=== PATIENT | female | born 1955 | race Native Hawaiian/Other Pacific Islander ===

== ENCOUNTER 2018-03-23 18:28 | Inpatient (IN) | payer MEDICAID, MEDICARE, OTHER ==
--- NOTE | 2018-03-23 18:52 | ED PDOC ---
Arrival/HPI <Darnell Arenas - Last Filed: 03/23/18 19:20> - General Historian: Patient EM Caveat: Altered Mental Status - History of Present Illness Narrative History of Present Illness (Text): 03/23/18 18:48 63F pmhx of [place] (s/p LCX sten 2011) DM, CAD, HTN, HLD presents to ED for altered mental status, pt complains of a headache, shortness of breath and chest tightness. Pt's cheif complaint is that her three years ago. Pt st ates her daughter and son work here at [employer]. Pt does not know where she lives however is able to accurately recall where she was born and her age.. Pt denies any fevers, chills, vomiting, blood in stool, blood in urine, recent illness, 03/23/18 18:57 <Robe Desai - Last Filed: 03/23/18 20:24> - General Chief Complaint: Headache Time Seen by Provider: 03/23/18 18:48 Past Medical History - Provider Review Nursing Documentation Reviewed: Yes - Cardiac Hx Pacemaker: No - Neurological Hx Paralysis: No - Hematological/Oncological Hx Blood Transfusions: No Hx Blood Transfusion Reaction: No - Musculoskeletal/Rheumatological Hx Musculoskeletal Disorders: Yes - Psychiatric Hx Emotional Abuse: No Hx Physical Abuse: No Hx Substance Use: No - Anesthesia Hx Anesthesia Reactions: No Hx Malignant Hyperthermia: No - Suicidal Assessment Feels Threatened In Home Enviroment: No <Robe Desai - Last Filed: 03/23/18 20:24> Family/Social History Family/Social History: Unknown Family HX Hx Alcohol Use: Yes Hx Substance Use: No <Robe Desai - Last Filed: 03/23/18 20:24> Allergies/Home Meds <Darnell Arenas - Last Filed: 03/23/18 19:20> <Robe Desai - Last Filed: 03/23/18 20:24> Allergies/Adverse Reactions: Allergies No Known Allergies Allergy (Verified 01/06/12 12:05) Home Medications: Home Meds Medication Instructions Recorded Confirmed Aspirin 81 mg PO DAILY 01/06/12 01/06/12 Atorvastatin Calcium 40 mg PO DAILY 01/06/12 01/06/12 Clopidogrel [Plavix] 75 mg PO DAILY 01/06/12 01/06/12 Enalapril Maleate [Enalapril] 10 mg PO QAM 01/06/12 01/06/12 Famotidine 20 mg PO DAILY 01/06/12 01/06/12 Fluticasone/Salmeterol [Advair 1 - 2 puff IH DAILY 01/06/12 01/06/12 Diskus 250/50] Gabapentin 300 mg PO DAILY 01/06/12 01/06/12 Glyburide/Metformin HCl 1 tab PO BID 01/06/12 01/06/12 [Glyburide/Metformin 5 mg-500 mg] Hydrochlorothiazide 25 mg PO DAILY 01/06/12 01/06/12 Metoprolol Tartrate 50 mg PO QAM 01/06/12 01/06/12 Montelukast [Singulair] 10 mg PO DAILY 01/06/12 01/06/12 Naproxen 500 mg PO DAILY PRN 01/06/12 01/06/12 Sydjy-[id number] Ethyl Esters [Lovaza] 1 gm PO DAILY 01/06/12 01/06/12 Omeprazole 40 mg PO DAILY 01/06/12 01/06/12 Zolpidem Tartrate 25 mg PO HS 01/06/12 01/06/12 Review of Systems - Physician Review All systems were reviewed & negative as marked: Yes - Review of Systems Systems not reviewed;Unavailable: Altered Mental Status Respiratory: SOB Cardiovascular: Chest Pain Neurological: Headache <Robe Desai - Last Filed: 03/23/18 20:24> Physical Exam Temperature: Afebrile Blood Pressure: Hypertensive Pulse: Regular Respiratory Rate: Normal Appearance: Positive for: Non-Toxic Pain Distress: None Mental Status: Positive for: Confused - Systems Exam Head: Present: Atraumatic, Normocephalic Pupils: Present: PERRL Extroacular Muscles: Present: EOMI. No: Gaze Palsy Conjunctiva: Present: Normal Mouth: Present: Dry Nose (External): Present: Atraumatic Respiratory/Chest: Present: Clear to Auscultation. No: Wheezes, Rales Cardiovascular: Present: Normal S1, S2. No: Murmurs Abdomen: No: Tenderness, Distention Upper Extremity: Present: NORMAL PULSES Lower Extremity: Present: NORMAL PULSES Neurological: Present: CN II-XII Intact Skin: Present: Dry Psychiatric: Present: Other (impaired cognition) <Robe Desai - Last Filed: 03/23/18 20:24> Medical Decision Making - RAD Interpretation Radiology Orders: 03/23/18 19:00 HEAD W/O CONTRAST [CT] Stat CHEST PORTABLE [RAD] Stat - Medication Orders Current Medication Orders: Sodium Chloride (Sodium Chloride 0.9%) 1,000 mls @ 999 mls/hr IV .Q1H1M STA Stop: 03/23/18 20:02 Discontinued Medications Acetaminophen (Tylenol 325mg Tab) 650 mg PO STAT STA Stop: 03/23/18 19:03 <Darnell Arenas - Last Filed: 03/23/18 19:20> ED Course and Treatment: 03/23/18 19:34 #Altered Mental Status -CBC, CMP, BC, UA, UC, CXR, Head CT w/o cont -Tylenol 650 PO -1L NS bolus - Lab Interpretations Interpretation: Abnormal lab values (lactate 6.0, glucose >500) <Robe Desai - Last Filed: 03/23/18 20:24> Disposition/Present on Arrival <Darnell Arenas - Last Filed: 03/23/18 19:20> - Present on Arrival Any Indicators Present on Arrival: No - Disposition Have Diagnosis and Disposition been Completed?: Yes Disposition Time: 20:11 Patient Plan: Admission (admit to hospitalist service) <Robe Desai - Last Filed: 03/23/18 20:24> - Disposition Diagnosis: Hyperosmolar non-ketotic state in patient with type 2 diabetes mellitus Disposition: HOSPITALIZED Patient Problems: Current Active Problems Problem Status Onset Hyperosmolar non-ketotic state in patient with type 2 diabetes mellitus Acute Condition: CRITICAL Referrals: Isaias Jo MD [Primary Care Provider] - Follow up with primary Forms: [employer] (Icelandic)
[2018-03-23] MEDS ORDERED: Sodium Chloride 0.9% 1,000 ML IV STA ×3 (19:02→20:01)
[2018-03-23 19:36] LABS: BASO # 0.03 K/mm3 (0.0-2.0); BASO % 0.3 % (0.0-3.0); EOS # 0.3 (0.0-0.7); EOS % 2.9 % (1.5-5.0); GRAN # 4.61 (1.4-6.5); GRAN % 47.7 % (50.0-68.0); HEMOGLOBIN 11.8 g/dL (12.0-16.0); LYMPH # 4.4 (1.2-3.4); LYMPH % 44.9 % (22.0-35.0); MEAN CELL VOLUME 90.8 fl (80.0-105.0); MEAN CORPUSCULAR HEMOGLOBIN 30.9 pg (25.0-35.0); MEAN PLATELET VOLUME 9.8 fl (7.0-11.0); MONO # 0.4 (0.1-0.6); MONO % 4.2 % (1.0-6.0); RBC 3.82 10^6/uL (3.5-6.1); RED CELL DISTRIBUTION WIDTH 12.5 % (11.5-14.5); WHITE BLOOD COUNT 9.7 10^3/uL (4.5-11.0)
[2018-03-23 19:36] LABS: URINE BILIRUBIN NEGATIVE (NEGATIVE); URINE BLOOD NEGATIVE (NEGATIVE); URINE GLUCOSE (UA) >=1000 mg/dL (NEGATIVE); URINE LEUKOCYTE ESTERASE SMALL Leu/uL (NEGATIVE); URINE PROTEIN NEGATIVE mg/dL (<30 mg/dL); URINE UROBILINOGEN 0.2 E.U./dL (<1 E.U./dL)
[2018-03-23 19:40] LABS: VENOUS BLOOD GAS BASE EXCESS -4.7 mmol/L (0.0-2.0); VENOUS BLOOD GAS PO2 95 mm/Hg (30-55); VENOUS BLOOD PH 7.35 (7.32-7.43)
[2018-03-23 19:43] LABS: URINE APPEARANCE CLEAR (CLEAR); URINE COLOR YELLOW (YELLOW)
[2018-03-23 19:51] LABS: ALB/GLOB RATIO 1.3 (1.1-1.8); ALBUMIN 4.5 g/dL (3.0-4.8); ALT/SGPT 25 U/L (7-56); AST/SGOT 29 U/L (14-36); BLOOD UREA NITROGEN 26 mg/dL (7-21); CALCIUM 9.6 mg/dL (8.4-10.5); GFR NON-AFRICAN AMERICAN 50
[2018-03-23] MEDS ORDERED: Insulin Regular 1 UNITS/0.01 ML ML SC STA (19:55)
[2018-03-23 19:58] LABS: URINE BACTERIA FEW /hpf
[2018-03-23 20:00] LABS: B-TYPE NATRIURETIC PEPTIDE 432 pg/mL (0-450); TROPONIN I 0.01 ng/mL
[2018-03-23] MEDS ORDERED: Magnesium Sulfate 2 gm/50 ml 2 GM/50 ML BAG IVPB ONE (20:41)
[2018-03-23] MEDS ORDERED: Dextrose 50% SYRINGE Inj (50 ml) IV PRN (21:12)
[2018-03-23] MEDS ORDERED: Insulin Reg-MEDIUM-Coverage SC SCH (21:15)
[2018-03-23] MEDS: Sodium Chloride 0.9% 1,000 ML IV SCH (21:57)
--- NOTE | 2018-03-23 23:27 | CP.PCM.HP ---
<Man Joant - Last Filed: 03/24/18 01:39> History of Present Illness - History of Present Illness History of Present Illness: Demario Jo DO PGY1 - Internal Medicine [employer] Heavy [employer]ic - Medicine H&P CC: Confusion 63F w/ [place] (s/p LCX sten 2011) DM, CAD, HTN, HLD who was brought in by EMS on 03/22 w/ c/o of SOB; per ED documentation, patient was brought in by EMS after she was found wandering the streets; Upon arrival to ED she was found to have a blood glucose of >500. During interview it was noted that patient was somewhat confused and AAO1 on exam. She personally was complaining of SOB, and kept mentioning it waas hard for her to breath ever since her passed. She denied any cough, fevers, chills, chest pain, palpitations, new onset lower extremity edema. She reported that she has been compliant w/ her diabetic medications, and her diet however upon evaluation of patient's personal artifacts it was noted patient was carrying a box of sweets/pastries. During interview, patient reports that her son brought her for SOB. Patient reported polyuria, and headache as well. Upon ROS: she denies any abd pain, n/v/d/c, numbness/tingling, blurry vision, PMD: Patient reports Dr. Jo at [facility] (Isaias Jo); Chart review lists Dr. Abby Adan Pharmacy: Patient does not know Home Rx: Unknown Social: Denies EtOH, smoking, illicit PMH: [place] (s/p LCX sten 2011) DM, CAD, HTN, HLD (as per chart review) Allergies: NKDA / Denies PSH: Denies Present on Admission - Present on Admission Any Indicators Present on Admission: No Review of Systems - Review of Systems All systems: reviewed and no additional remarkable complaints except Review of Systems: as per HPI Past Patient History - Infectious Disease Hx of Infectious Diseases: None - Past Social History Smoking Status: Unknown If Ever Smoked - CARDIAC Hx Pacemaker: No - NEUROLOGICAL Hx Paralysis: No - HEMATOLOGICAL/ONCOLOGICAL Hx Blood Transfusions: No Hx Blood Transfusion Reaction: No - MUSCULOSKELETAL/RHEUMATOLOGICAL Hx Musculoskeletal Disorders: Yes - PSYCHIATRIC Hx Emotional Abuse: No Hx Physical Abuse: No Hx Substance Use: No - SURGICAL HISTORY Hx Surgeries: Yes - ANESTHESIA Hx Anesthesia Reactions: No Hx Malignant Hyperthermia: No Meds Allergies/Adverse Reactions: Allergies Allergy/AdvReac Type Severity Reaction Status Date / Time No Known Allergies Allergy Verified 01/06/12 12:05 Physical Exam - Constitutional Appears: Well, No Acute Distress, Confused - Head Exam Head Exam: ATRAUMATIC, NORMOCEPHALIC - Eye Exam Eye Exam: EOMI, Normal appearance, PERRL - ENT Exam ENT Exam: Mucous Membranes Moist - Respiratory Exam Respiratory Exam: NORMAL BREATHING PATTERN Additional comments: Crackles in Left Middle/Lower lung oliver - Cardiovascular Exam Cardiovascular Exam: RRR, +S1, +S2. absent: Systolic Murmur - GI/Abdominal Exam GI & Abdominal Exam: Normal Bowel Sounds, Soft, Tenderness - Extremities Exam Extremities exam: Positive for: pedal pulses present. Negative for: pedal edema - Back Exam Back exam: CVA tenderness (L), CVA tenderness (R) - Neurological Exam Neurological exam: Alert Additional comments: AAO1 - Skin Skin Exam: Dry, Intact, Normal Color, Warm Results - Vital Signs Recent Vital Signs: Last Vital Signs Temp 98.7 F 03/23/18 19:52 Pulse 80 03/23/18 21:42 Resp 18 03/23/18 21:42 BP 159/83 H 03/23/18 21:42 Pulse Ox 100 03/23/18 21:42 - Labs Result Diagrams: 03/23/18 19:15 03/24/18 00:05 Labs: Laboratory Results - last 24 hr 03/23/18 03/23/18 03/23/18 18:15 18:15 18:15 WBC 9.7 RBC 3.82 Hgb 11.8 L Hct 34.7 L MCV 90.8 MCH 30.9 MCHC 34.0 RDW 12.5 Plt Count 269 MPV 9.8 Gran % 47.7 L Lymph % (Auto) 44.9 H Labette % (Auto) 4.2 Eos % (Auto) 2.9 Baso % (Auto) 0.3 Gran # 4.61 Lymph # (Auto) 4.4 H Labette # (Auto) 0.4 Eos # (Auto) 0.3 Baso # (Auto) 0.03 pO2 95 H VBG pH 7.35 VBG pCO2 37.0 L VBG HCO3 20.4 L VBG Total CO2 21.5 L VBG O2 Sat (Calc) 98.9 H VBG Base Excess -4.7 L VBG Potassium 3.6 Sodium 135.0 134 Chloride 95.0 L 97 L Glucose 581 H* Lactate 6.0 H* FiO2 21.0 Potassium 3.7 Carbon Dioxide 19 L Anion Gap 22 H BUN 26 H Creatinine 1.1 Est GFR ( Amer) > 60 Est GFR (Non-Af Amer) 50 Random Glucose 549 H* Calcium 9.6 Phosphorus 3.3 Magnesium 1.6 L Total Bilirubin 0.5 AST 29 ALT 25 Alkaline Phosphatase 129 H Troponin I 0.01 NT-Pro-B Natriuret Pep 432 Total Protein 8.0 Albumin 4.5 Globulin 3.5 Albumin/Globulin Ratio 1.3 Venous Blood Potassium 3.6 Urine Color Urine Appearance Urine pH Ur Specific Jewell Urine Protein Urine Glucose (UA) Urine Ketones Urine Blood Urine Nitrate Urine Bilirubin Urine Urobilinogen Ur Leukocyte Esterase Urine RBC Urine WBC Ur Epithelial Cells Urine Bacteria 03/23/18 18:15 WBC RBC Hgb Hct MCV MCH MCHC RDW Plt Count MPV Gran % Lymph % (Auto) Labette % (Auto) Eos % (Auto) Baso % (Auto) Gran # Lymph # (Auto) Labette # (Auto) Eos # (Auto) Baso # (Auto) pO2 VBG pH VBG pCO2 VBG HCO3 VBG Total CO2 VBG O2 Sat (Calc) VBG Base Excess VBG Potassium Sodium Chloride Glucose Lactate FiO2 Potassium Carbon Dioxide Anion Gap BUN Creatinine Est GFR ( Amer) Est GFR (Non-Af Amer) Random Glucose Calcium Phosphorus Magnesium Total Bilirubin AST ALT Alkaline Phosphatase Troponin I NT-Pro-B Natriuret Pep Total Protein Albumin Globulin Albumin/Globulin Ratio Venous Blood Potassium Urine Color Yellow Urine Appearance Clear Urine pH 6.0 Ur Specific Jewell 1.020 Urine Protein Negative Urine Glucose (UA) >=1000 Urine Ketones Negative Urine Blood Negative Urine Nitrate Negative Urine Bilirubin Negative Urine Urobilinogen 0.2 Ur Leukocyte Esterase Small H Urine RBC 1 - 3 H Urine WBC 10 - 15 H Ur Epithelial Cells 1 - 3 Urine Bacteria Few Assessment & Plan - Assessment and Plan (Free Text) Assessment: 63F w/ [place] (s/p LCX angioplasty w/ balloon 2011) DM, CAD, HTN, HLD who was brought in by EMS on 03/22 w/ c/o of SOB; per ED documentation, patient was brought in by EMS after she was found wandering the streets; Upon arrival to ED she was found to have a blood glucose of >500. Admitted for management of HHS. Patient found to have the following Assessments upon admission: AMS + COELHO Hx CAD Hx HTN Hx HLD HHS w/ Hx DM Anemia Plan Neuro: AAO1 on exam No s/s of FND 03/23 - CT Head - Generalized atrophy, Chronic microvascular disease Avoid sedatives in this patent; AMS + COELHO - Most likely due to HHS vs Dehydration IVF Reorient as needed Pulm: Mild crackles in left middle/lower lung oliver CXR negative for signs of infiltrate; afebrile no white count; no complaints of cough Maintain O2 Sat >95% Aspiration precautions Budesonide Q12 Duonebs Q6H ANUP Cardio: Hx CAD s/p Cath w/ LCX angioplasty 2011; Hx HTN Maintain Map >65 Echocardiogram pending EKG - no significant signs of ischemia First trop negative; Serial troponins pending Start metoprolol tartrate 25 BID - Pt. HTN in 160s C/w previously Rx ASA/Plavix Endocrinology HHS w/ Hx DM: Blood glucose 549 on admission; Anion gap 18, no ketone in urine, UA glucose>1000; pH 7.35, Mildly decreased bicarb Patient may have been exhibiting a pre-DKA state? Causes of HHS most likely 2/2 non compliance Sugar responsive to 10u bolus and ISS C/w ISS Low Q4 + Accucheck Q4 Will recheck BMP to reassess AG C/w IVF @ 125ml/hr Heme/Onc Normocytic Anemia Asymptomatic; no pallor appreciated; good cap refill; no chest pain or palpitations; Satting well Follow up Iron studies, B12, Folate Nephro: BUN/Cr - 26/1.1 Hypomag on admission; Repleted + Recheck in AM Maintain electrolyte balance Maintain euvolemia IVF as above Mag 2gm IVPB ID: Afebrile, No white count, BCX/ UCX pending No infiltrate appreciated on CXR UA w/ some pyuria + bacturia however patient is asymptomatic; No need for empi sincere ABX at this time PPX: Protonix Lovenox Patient was seen, examined, and discussed w/ attending physician Dr. 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 SPECIALIST <Mena Corley - Last Filed: 03/24/18 06:41> Results - Vital Signs Recent Vital Signs: Last Vital Signs Temp 98.3 F 03/23/18 23:42 Pulse 64 03/24/18 02:00 Resp 17 03/23/18 23:42 BP 153/76 H 03/24/18 01:45 Pulse Ox 97 03/23/18 23:15 - Labs Result Diagrams: 03/23/18 19:15 03/24/18 00:05 Labs: Laboratory Results - last 24 hr 03/23/18 03/23/18 03/23/18 18:15 19:15 19:15 WBC RBC Hgb Hct MCV MCH MCHC RDW Plt Count MPV Gran % Lymph % (Auto) Labette % (Auto) Eos % (Auto) Baso % (Auto) Gran # Lymph # (Auto) Labette # (Auto) Eos # (Auto) Baso # (Auto) pO2 95 H VBG pH 7.35 VBG pCO2 37.0 L VBG HCO3 20.4 L VBG Total CO2 21.5 L VBG O2 Sat (Calc) 98.9 H VBG Base Excess -4.7 L VBG Potassium 3.6 Sodium 135.0 134 Chloride 95.0 L 97 L Glucose 581 H* Lactate 6.0 H* FiO2 21.0 Potassium 3.7 Carbon Dioxide 19 L Anion Gap 22 H BUN 26 H Creatinine 1.1 Est GFR ( Amer) > 60 Est GFR (Non-Af Amer) 50 POC Glucose (mg/dL) Random Glucose 549 H* Calcium 9.6 Phosphorus 3.3 Magnesium 1.6 L Iron TIBC % Saturation Total Bilirubin 0.5 AST 29 ALT 25 Alkaline Phosphatase 129 H Troponin I 0.01 NT-Pro-B Natriuret Pep 432 Total Protein 8.0 Albumin 4.5 Globulin 3.5 Albumin/Globulin Ratio 1.3 Venous Blood Potassium 3.6 Urine Color Yellow Urine Appearance Clear Urine pH 6.0 Ur Specific Jewell 1.020 Urine Protein Negative Urine Glucose (UA) >=1000 Urine Ketones Negative Urine Blood Negative Urine Nitrate Negative Urine Bilirubin Negative Urine Urobilinogen 0.2 Ur Leukocyte Esterase Small H Urine RBC 1 - 3 H Urine WBC 10 - 15 H Ur Epithelial Cells 1 - 3 Urine Bacteria Few 03/23/18 03/23/18 03/23/18 19:15 21:04 21:55 WBC 9.7 RBC 3.82 Hgb 11.8 L Hct 34.7 L MCV 90.8 MCH 30.9 MCHC 34.0 RDW 12.5 Plt Count 269 MPV 9.8 Gran % 47.7 L Lymph % (Auto) 44.9 H Labette % (Auto) 4.2 Eos % (Auto) 2.9 Baso % (Auto) 0.3 Gran # 4.61 Lymph # (Auto) 4.4 H Labette # (Auto) 0.4 Eos # (Auto) 0.3 Baso # (Auto) 0.03 pO2 VBG pH VBG pCO2 VBG HCO3 VBG Total CO2 VBG O2 Sat (Calc) VBG Base Excess VBG Potassium Sodium Chloride Glucose Lactate FiO2 Potassium Carbon Dioxide Anion Gap BUN Creatinine Est GFR ( Amer) Est GFR (Non-Af Amer) POC Glucose (mg/dL) 391 H 264 H Random Glucose Calcium Phosphorus Magnesium Iron TIBC % Saturation Total Bilirubin AST ALT Alkaline Phosphatase Troponin I NT-Pro-B Natriuret Pep Total Protein Albumin Globulin Albumin/Globulin Ratio Venous Blood Potassium Urine Color Urine Appearance Urine pH Ur Specific Jewell Urine Protein Urine Glucose (UA) Urine Ketones Urine Blood Urine Nitrate Urine Bilirubin Urine Urobilinogen Ur Leukocyte Esterase Urine RBC Urine WBC Ur Epithelial Cells Urine Bacteria 03/24/18 03/24/18 03/24/18 00:05 00:05 00:05 WBC RBC Hgb Hct MCV MCH MCHC RDW Plt Count MPV Gran % Lymph % (Auto) Labette % (Auto) Eos % (Auto) Baso % (Auto) Gran # Lymph # (Auto) Labette # (Auto) Eos # (Auto) Baso # (Auto) pO2 50 VBG pH 7.38 VBG pCO2 44.0 VBG HCO3 26.0 VBG Total CO2 27.4 VBG O2 Sat (Calc) 87.2 H VBG Base Excess 0.5 VBG Potassium 3.1 L Sodium 141.0 140 Chloride 107.0 106 Glucose 161 H Lactate 1.4 FiO2 21.0 Potassium 3.1 L Carbon Dioxide 26 Anion Gap 10 BUN 20 Creatinine 0.9 Est GFR ( Amer) > 60 Est GFR (Non-Af Amer) > 60 POC Glucose (mg/dL) Random Glucose 156 H Calcium 8.6 Phosphorus Magnesium Iron 43 L TIBC 308 % Saturation 14 L Total Bilirubin AST ALT Alkaline Phosphatase Troponin I 0.02 D NT-Pro-B Natriuret Pep Total Protein Albumin Globulin Albumin/Globulin Ratio Venous Blood Potassium 3.1 L Urine Color Urine Appearance Urine pH Ur Specific Jewell Urine Protein Urine Glucose (UA) Urine Ketones Urine Blood Urine Nitrate Urine Bilirubin Urine Urobilinogen Ur Leukocyte Esterase Urine RBC Urine WBC Ur Epithelial Cells Urine Bacteria 03/24/18 04:35 WBC RBC Hgb Hct MCV MCH MCHC RDW Plt Count MPV Gran % Lymph % (Auto) Labette % (Auto) Eos % (Auto) Baso % (Auto) Gran # Lymph # (Auto) Labette # (Auto) Eos # (Auto) Baso # (Auto) pO2 VBG pH VBG pCO2 VBG HCO3 VBG Total CO2 VBG O2 Sat (Calc) VBG Base Excess VBG Potassium Sodium Chloride Glucose Lactate FiO2 Potassium Carbon Dioxide Anion Gap BUN Creatinine Est GFR ( Amer) Est GFR (Non-Af Amer) POC Glucose (mg/dL) 159 H Random Glucose Calcium Phosphorus Magnesium Iron TIBC % Saturation Total Bilirubin AST ALT Alkaline Phosphatase Troponin I NT-Pro-B Natriuret Pep Total Protein Albumin Globulin Albumin/Globulin Ratio Venous Blood Potassium Urine Color Urine Appearance Urine pH Ur Specific Jewell Urine Protein Urine Glucose (UA) Urine Ketones Urine Blood Urine Nitrate Urine Bilirubin Urine Urobilinogen Ur Leukocyte Esterase Urine RBC Urine WBC Ur Epithelial Cells Urine Bacteria Attending/Attestation - Attestation I have personally seen and examined this patient.: Yes I have fully participated in the care of the patient.: Yes I have reviewed all pertinent clinical information: Yes
[2018-03-24 00:32] LABS: VENOUS BLOOD GAS BASE EXCESS 0.5 mmol/L (0.0-2.0); VENOUS BLOOD GAS PO2 50 mm/Hg (30-55); VENOUS BLOOD PH 7.38 (7.32-7.43)
[2018-03-24 00:40] LABS: IRON 43 ug/dL (45-180)
[2018-03-24 00:49] LABS: % IRON SATURATION 14 % (20-55); TOTAL IRON BINDING CAPACITY 308 ug/dL (265-497)
[2018-03-24 00:52] LABS: TROPONIN I 0.02 ng/mL
[2018-03-24 00:55] LABS: BLOOD UREA NITROGEN 20 mg/dL (7-21); CALCIUM 8.6 mg/dL (8.4-10.5); GFR NON-AFRICAN AMERICAN > 60
[2018-03-24 01:00] VITALS: BMI 21.7
[2018-03-24] MEDS: Insulin Reg-MEDIUM-Coverage SC SCH ×6 (01:44→20:59)
--- NOTE | 2018-03-24 01:46 | US ---
Date of service: 03/23/2018 HISTORY: Diffuse abdominal tenderness COMPARISON: None. TECHNIQUE: Grayscale imaging was performed. FINDINGS: LIVER: Measures 17.0 cm. Normal echogenicity of the liver parenchyma. No mass. No intrahepatic bile duct dilatation. GALLBLADDER: There are no gallstones, wall thickening or pericholecystic fluid. The sonographic Garnica's sign is negative. COMMON BILE DUCT: Measures 2.9 mm. No stones. No dilatation. PANCREAS: Unremarkable as visualized. No mass. No ductal dilatation. RIGHT KIDNEY: Measures 9.7cm. Normal echogenicity with mild cortical atrophy. No calculus, mass, or hydronephrosis. LEFT KIDNEY: Measures 9.2cm. Normal echogenicity with mild cortical atrophy. No calculus, mass, or hydronephrosis. SPLEEN: Normal in size and contour. No mass. AORTA: No aneurysmal dilatation. IVC: Unremarkable. OTHER FINDINGS: None. IMPRESSION: No cholelithiasis or biliary dilatation. No acute findings.
[2018-03-24] MEDS ORDERED: Potassium Chloride 20 mEq ER Tab PO ONE (01:53)
[2018-03-24] MEDS: Albuterol-Ipratrop 3 mg / 0.5 (3 ml) UD IH SCH ×3 (02:55→13:11)
[2018-03-24] MEDS: Sodium Chloride 0.9% 1,000 ML IV SCH (05:51)
[2018-03-24 06:43] LABS: BASO # 0.04 K/mm3 (0.0-2.0); BASO % 0.5 % (0.0-3.0); EOS # 0.3 (0.0-0.7); EOS % 3.9 % (1.5-5.0); GRAN # 3.77 (1.4-6.5); GRAN % 47.5 % (50.0-68.0); HEMOGLOBIN 12.3 g/dL (12.0-16.0); LYMPH # 3.3 (1.2-3.4); LYMPH % 41.3 % (22.0-35.0); MEAN CELL VOLUME 90.2 fl (80.0-105.0); MEAN CORPUSCULAR HEMOGLOBIN 30.9 pg (25.0-35.0); MEAN CORPUSCULAR HGB CONC 34.3 g/dl (31.0-37.0); MEAN PLATELET VOLUME 9.7 fl (7.0-11.0); MONO # 0.5 (0.1-0.6); MONO % 6.8 % (1.0-6.0); RBC 3.98 10^6/uL (3.5-6.1); RED CELL DISTRIBUTION WIDTH 12.5 % (11.5-14.5); WHITE BLOOD COUNT 7.9 10^3/uL (4.5-11.0)
[2018-03-24 06:51] LABS: ALB/GLOB RATIO 1.1 (1.1-1.8); ALBUMIN 3.9 g/dL (3.0-4.8); ALT/SGPT 28 U/L (7-56); AST/SGOT 28 U/L (14-36); BLOOD UREA NITROGEN 15 mg/dL (7-21); CALCIUM 8.5 mg/dL (8.4-10.5); GFR NON-AFRICAN AMERICAN > 60; HDL CHOLESTEROL 65 mg/dL (29-60)
[2018-03-24 06:56] LABS: TROPONIN I 0.02 ng/mL
[2018-03-24 06:57] LABS: LDL CHOLESTEROL 172 mg/dL (0-129)
[2018-03-24] MEDS: Budesonide 0.25 mg/2 ml Inhal Susp UD IH SCH (08:18)
--- NOTE | 2018-03-24 08:55 | CT ---
Date of service: 03/23/2018 PROCEDURE: CT HEAD WITHOUT CONTRAST. HISTORY: altered mental status, headache COMPARISON: None available. TECHNIQUE: Axial computed tomography images were obtained through the head/brain without intravenous contrast. Radiation dose: Total exam DLP = 814.29 mGy-cm. This CT exam was performed using one or more of the following dose reduction techniques: Automated exposure control, adjustment of the mA and/or kV according to patient size, and/or use of iterative reconstruction technique. FINDINGS: HEMORRHAGE: No intracranial hemorrhage. BRAIN: No mass effect or edema. Chronic microvascular changes. Mild atrophy. VENTRICLES: Unremarkable. No hydrocephalus. CALVARIUM: Unremarkable. PARANASAL SINUSES: Unremarkable as visualized. No significant inflammatory changes. MASTOID AIR CELLS: Unremarkable as visualized. No inflammatory changes. OTHER FINDINGS: The report concurs with the preliminary [facility] report IMPRESSION: No acute intracranial findings
[2018-03-24] MEDS ORDERED: Pantoprazole 40 mg EC Tab PO SCH (10:00)
[2018-03-24] MEDS ORDERED: Metoprolol Succinate 50 mg XL Tab PO SCH (10:00)
[2018-03-24] MEDS ORDERED: HYDROCHLOROTHIAZIDE 25 MG PO SCH (10:00)
[2018-03-24] MEDS ORDERED: ENALAPRIL MALEATE 10 MG PO SCH (10:00)
[2018-03-24] MEDS ORDERED: METOPROLOL TARTRATE 50 MG PO SCH (10:00)
--- NOTE | 2018-03-24 10:05 | CP.CCUPN ---
<Robe Raymond - Last Filed: 03/24/18 14:27> CCU Subjective - Physician Review Subjective (Free Text): 03/24/18 12:00 Boo Raymond PGY2 - ICU Progress Note Patient seen and examined in ICU this AM. Patient noted to be laying in bed comfortably. Patient able to recall place but has difficulty with year, date, day of the week. She reports her last recollection was being at home yesterday. She is unable to provide clear history of the past 24 hours. She denies chest pain, shortness of breath, abdominal pain, nausea, vomiting, fever, chills. CCU Objective - Vital Signs / Intake & Output Vital Signs (Last 4 hours): Vital Signs Pulse BP 03/24/18 09:51 65 151/72 H Intake and Output (Last 8hrs): Intake & Output 03/23/18 03/24/18 03/24/18 22:59 06:59 14:59 Intake Total 1080 Output Total 1600 Balance -520 Weight 121 lb 181 lb 4.8 oz Intake: IV 1000 Right Wrist 1000 Oral 80 Output: Urine 1600 Urine, Voided 1600 Stool 0 Emesis 0 - Physical Exam Head: Positive for: Atraumatic, Normocephalic Pupils: Positive for: PERRL Extroacular Muscles: Positive for: EOMI. Negative for: Gaze Palsy Conjunctiva: Positive for: Normal Mouth: Positive for: Moist Mucous Membranes Nose (External): Positive for: Atraumatic Respiratory/Chest: Positive for: Clear to Auscultation. Negative for: Wheezes, Rales Cardiovascular: Positive for: Normal S1, S2. Negative for: Murmurs Abdomen: Negative for: Tenderness, Distention Upper Extremity: Positive for: NORMAL PULSES. Negative for: Cyanosis, Edema Lower Extremity: Positive for: NORMAL PULSES. Negative for: Edema, Swelling, Erythema Neurological: Positive for: GCS=15, CN II-XII Intact, Speech Normal, Motor Func Grossly Intact, Normal Sensory Function Skin: Positive for: Warm, Dry Psychiatric: Positive for: Alert, Other (oriented to person, place) - Medications Active Medications: Active Medications Generic Name Dose Route Start Last Admin Trade Name Freq PRN Reason Stop Dose Admin Albuterol/Ipratropium 3 ml 03/24/18 02:00 03/24/18 07:28 Duoneb 3 Mg/0.5 Mg (3 Ml) Ud IH 3 ml [id number] ANUP Administration Aspirin 81 mg 03/24/18 10:00 03/24/18 09:55 Ecotrin PO 81 mg DAILY ANUP Administration Atorvastatin Calcium 20 mg 03/24/18 17:00 Lipitor PO DIN ANUP Budesonide 0.25 mg 03/24/18 08:00 03/24/18 08:18 Pulmicort Respules IH 0.25 mg [id number] ANPU Administration Clopidogrel Bisulfate 75 mg 03/24/18 10:00 03/24/18 09:55 Plavix PO 75 mg DAILY ANUP Administration Dextrose 0 ml 03/23/18 21:12 Dextrose 50% Inj IV STAT PRN Hypoglycemia Protocol Protocol Hydrochlorothiazide 25 mg 03/24/18 10:00 03/24/18 09:55 Hydrodiuril PO 25 mg DAILY ANUP Administration Sodium Chloride 1,000 mls @ 125 mls/hr 03/23/18 21:15 03/24/18 05:51 Sodium Chloride 0.9% IV 125 mls/hr .Q8H ANUP Administration Dextrose 1,000 mls @ 0 mls/hr 03/23/18 21:12 Dextrose 5% In Water 1000 Ml IV .Q0M PRN Hypoglycemia Protocol Protocol Per Protocol Insulin Human Regular 0 units 03/23/18 23:52 03/24/18 08:36 Humulin R Med SC 3 unit Q4H ANUP Administration Protocol Lisinopril 10 mg 03/24/18 10:00 03/24/18 09:51 Zestril PO 10 mg DAILY ANUP Administration Metoprolol Tartrate 50 mg 03/24/18 10:00 Lopressor PO DAILY ANUP Pantoprazole Sodium 40 mg 03/24/18 10:00 03/24/18 09:52 Protonix Inj IVP 40 mg DAILY ANUP Administration - Patient Studies Lab Studies: Lab Studies 03/24/18 03/24/18 03/24/18 Range/Units 07:30 07:25 06:00 WBC (4.5-11.0) 10^3/uL RBC (3.5-6.1) 10^6/uL Hgb (12.0-16.0) g/dL Hct (36.0-48.0) % MCV (80.0-105.0) fl MCH (25.0-35.0) pg MCHC (31.0-37.0) g/dl RDW (11.5-14.5) % Plt Count (120.0-450.0) 10^3/uL MPV (7.0-11.0) fl Gran % (50.0-68.0) % Lymph % (Auto) (22.0-35.0) % Sanders % (Auto) (1.0-6.0) % Eos % (Auto) (1.5-5.0) % Baso % (Auto) (0.0-3.0) % Gran # (1.4-6.5) Lymph # (Auto) (1.2-3.4) Sanders # (Auto) (0.1-0.6) Eos # (Auto) (0.0-0.7) Baso # (Auto) (0.0-2.0) K/mm3 pO2 (30-55) mm/Hg VBG pH (7.32-7.43) VBG pCO2 (40-60) VBG HCO3 (21-28) mmol/l VBG Total CO2 (22-28) mmol.L VBG O2 Sat (Calc) (40-65) % VBG Base Excess (0.0-2.0) mmol/L VBG Potassium (3.6-5.2) mmol/L Sodium (132-148) mmol/L Chloride (98-107) mmol/L Glucose (65-105) mg/dl Lactate (0.7-2.1) mmol/L FiO2 % Potassium (3.6-5.0) mmol/L Carbon Dioxide (21-33) mmol/L Anion Gap (10-20) BUN (7-21) mg/dL Creatinine (0.7-1.2) mg/dl Est GFR ( Amer) Est GFR (Non-Af Amer) POC Glucose (mg/dL) 247 H (65-110) mg/dL Random Glucose (70-110) mg/dL Lactic Acid 2.4 H (0.7-2.1) mmol/L Calcium (8.4-10.5) mg/dL Phosphorus (2.5-4.5) mg/dL Magnesium 2.0 (1.7-2.2) mg/dL Iron (45-180) ug/dL TIBC (265-497) ug/dL % Saturation (20-55) % Total Bilirubin (0.2-1.3) mg/dL AST (14-36) U/L ALT (7-56) U/L Alkaline Phosphatase (38-126) U/L Troponin I ng/mL NT-Pro-B Natriuret Pep (0-450) pg/mL Total Protein (5.8-8.3) g/dL Albumin (3.0-4.8) g/dL Globulin gm/dL Albumin/Globulin Ratio (1.1-1.8) Triglycerides (35-160) mg/dL Cholesterol (130-200) mg/dL LDL Cholesterol Direct (0-129) mg/dL HDL Cholesterol (29-60) mg/dL Venous Blood Potassium (3.6-5.2) mmol/L Urine Color (YELLOW) Urine Appearance (CLEAR) Urine pH (4.7-8.0) Ur Specific [place] (1.005-1.035) Urine Protein (<30 mg/dL) mg/dL Urine Glucose (UA) (NEGATIVE) mg/dL Urine Ketones (NEGATIVE) mg/dL Urine Blood (NEGATIVE) Urine Nitrate (NEGATIVE) Urine Bilirubin (NEGATIVE) Urine Urobilinogen (<1 E.U./dL) E.U./dL Ur Leukocyte Esterase (NEGATIVE) Nicole/uL Urine RBC (0-2) /hpf Urine WBC (0-6) /hpf Ur Epithelial Cells (0-5) /hpf Urine Bacteria (NONE) /hpf 03/24/18 03/24/18 03/24/18 Range/Units 06:00 06:00 04:35 WBC 7.9 (4.5-11.0) 10^3/uL RBC 3.98 (3.5-6.1) 10^6/uL Hgb 12.3 (12.0-16.0) g/dL Hct 35.9 L (36.0-48.0) % MCV 90.2 (80.0-105.0) fl MCH 30.9 (25.0-35.0) pg MCHC 34.3 (31.0-37.0) g/dl RDW 12.5 (11.5-14.5) % Plt Count 276 (120.0-450.0) 10^3/uL MPV 9.7 (7.0-11.0) fl Gran % 47.5 L (50.0-68.0) % Lymph % (Auto) 41.3 H (22.0-35.0) % Sanders % (Auto) 6.8 H (1.0-6.0) % Eos % (Auto) 3.9 (1.5-5.0) % Baso % (Auto) 0.5 (0.0-3.0) % Gran # 3.77 (1.4-6.5) Lymph # (Auto) 3.3 (1.2-3.4) Sanders # (Auto) 0.5 (0.1-0.6) Eos # (Auto) 0.3 (0.0-0.7) Baso # (Auto) 0.04 (0.0-2.0) K/mm3 pO2 (30-55) mm/Hg VBG pH (7.32-7.43) VBG pCO2 (40-60) VBG HCO3 (21-28) mmol/l VBG Total CO2 (22-28) mmol.L VBG O2 Sat (Calc) (40-65) % VBG Base Excess (0.0-2.0) mmol/L VBG Potassium (3.6-5.2) mmol/L Sodium 141 (132-148) mmol/L Chloride 108 H (98-107) mmol/L Glucose (65-105) mg/dl Lactate (0.7-2.1) mmol/L FiO2 % Potassium 4.2 (3.6-5.0) mmol/L Carbon Dioxide 25 (21-33) mmol/L Anion Gap 12 (10-20) BUN 15 (7-21) mg/dL Creatinine 0.8 (0.7-1.2) mg/dl Est GFR ( Amer) > 60 Est GFR (Non-Af Amer) > 60 POC Glucose (mg/dL) 159 H (65-110) mg/dL Random Glucose 216 H (70-110) mg/dL Lactic Acid (0.7-2.1) mmol/L Calcium 8.5 (8.4-10.5) mg/dL Phosphorus (2.5-4.5) mg/dL Magnesium (1.7-2.2) mg/dL Iron (45-180) ug/dL TIBC (265-497) ug/dL % Saturation (20-55) % Total Bilirubin 0.7 (0.2-1.3) mg/dL AST 28 (14-36) U/L ALT 28 (7-56) U/L Alkaline Phosphatase 115 (38-126) U/L Troponin I 0.02 ng/mL NT-Pro-B Natriuret Pep (0-450) pg/mL Total Protein 7.5 (5.8-8.3) g/dL Albumin 3.9 (3.0-4.8) g/dL Globulin 3.5 gm/dL Albumin/Globulin Ratio 1.1 (1.1-1.8) Triglycerides 104 (35-160) mg/dL Cholesterol 284 H (130-200) mg/dL LDL Cholesterol Direct 172 H (0-129) mg/dL HDL Cholesterol 65 H (29-60) mg/dL Venous Blood Potassium (3.6-5.2) mmol/L Urine Color (YELLOW) Urine Appearance (CLEAR) Urine pH (4.7-8.0) Ur Specific [place] (1.005-1.035) Urine Protein (<30 mg/dL) mg/dL Urine Glucose (UA) (NEGATIVE) mg/dL Urine Ketones (NEGATIVE) mg/dL Urine Blood (NEGATIVE) Urine Nitrate (NEGATIVE) Urine Bilirubin (NEGATIVE) Urine Urobilinogen (<1 E.U./dL) E.U./dL Ur Leukocyte Esterase (NEGATIVE) Nicole/uL Urine RBC (0-2) /hpf Urine WBC (0-6) /hpf Ur Epithelial Cells (0-5) /hpf Urine Bacteria (NONE) /hpf 03/24/18 03/24/18 03/24/18 Range/Units 00:05 00:05 00:05 WBC (4.5-11.0) 10^3/uL RBC (3.5-6.1) 10^6/uL Hgb (12.0-16.0) g/dL Hct (36.0-48.0) % MCV (80.0-105.0) fl MCH (25.0-35.0) pg MCHC (31.0-37.0) g/dl RDW (11.5-14.5) % Plt Count (120.0-450.0) 10^3/uL MPV (7.0-11.0) fl Gran % (50.0-68.0) % Lymph % (Auto) (22.0-35.0) % Sanders % (Auto) (1.0-6.0) % Eos % (Auto) (1.5-5.0) % Baso % (Auto) (0.0-3.0) % Gran # (1.4-6.5) Lymph # (Auto) (1.2-3.4) Sanders # (Auto) (0.1-0.6) Eos # (Auto) (0.0-0.7) Baso # (Auto) (0.0-2.0) K/mm3 pO2 50 (30-55) mm/Hg VBG pH 7.38 (7.32-7.43) VBG pCO2 44.0 (40-60) VBG HCO3 26.0 (21-28) mmol/l VBG Total CO2 27.4 (22-28) mmol.L VBG O2 Sat (Calc) 87.2 H (40-65) % VBG Base Excess 0.5 (0.0-2.0) mmol/L VBG Potassium 3.1 L (3.6-5.2) mmol/L Sodium 140 141.0 (132-148) mmol/L Chloride 106 107.0 (98-107) mmol/L Glucose 161 H (65-105) mg/dl Lactate 1.4 (0.7-2.1) mmol/L FiO2 21.0 % Potassium 3.1 L (3.6-5.0) mmol/L Carbon Dioxide 26 (21-33) mmol/L Anion Gap 10 (10-20) BUN 20 (7-21) mg/dL Creatinine 0.9 (0.7-1.2) mg/dl Est GFR ( Amer) > 60 Est GFR (Non-Af Amer) > 60 POC Glucose (mg/dL) (65-110) mg/dL Random Glucose 156 H (70-110) mg/dL Lactic Acid (0.7-2.1) mmol/L Calcium 8.6 (8.4-10.5) mg/dL Phosphorus (2.5-4.5) mg/dL Magnesium (1.7-2.2) mg/dL Iron 43 L (45-180) ug/dL TIBC 308 (265-497) ug/dL % Saturation 14 L (20-55) % Total Bilirubin (0.2-1.3) mg/dL AST (14-36) U/L ALT (7-56) U/L Alkaline Phosphatase (38-126) U/L Troponin I 0.02 D ng/mL NT-Pro-B Natriuret Pep (0-450) pg/mL Total Protein (5.8-8.3) g/dL Albumin (3.0-4.8) g/dL Globulin gm/dL Albumin/Globulin Ratio (1.1-1.8) Triglycerides (35-160) mg/dL Cholesterol (130-200) mg/dL LDL Cholesterol Direct (0-129) mg/dL HDL Cholesterol (29-60) mg/dL Venous Blood Potassium 3.1 L (3.6-5.2) mmol/L Urine Color (YELLOW) Urine Appearance (CLEAR) Urine pH (4.7-8.0) Ur Specific [place] (1.005-1.035) Urine Protein (<30 mg/dL) mg/dL Urine Glucose (UA) (NEGATIVE) mg/dL Urine Ketones (NEGATIVE) mg/dL Urine Blood (NEGATIVE) Urine Nitrate (NEGATIVE) Urine Bilirubin (NEGATIVE) Urine Urobilinogen (<1 E.U./dL) E.U./dL Ur Leukocyte Esterase (NEGATIVE) Nicole/uL Urine RBC (0-2) /hpf Urine WBC (0-6) /hpf Ur Epithelial Cells (0-5) /hpf Urine Bacteria (NONE) /hpf 03/23/18 03/23/18 03/23/18 Range/Units 21:55 21:04 19:15 WBC 9.7 (4.5-11.0) 10^3/uL RBC 3.82 (3.5-6.1) 10^6/uL Hgb 11.8 L (12.0-16.0) g/dL Hct 34.7 L (36.0-48.0) % MCV 90.8 (80.0-105.0) fl MCH 30.9 (25.0-35.0) pg MCHC 34.0 (31.0-37.0) g/dl RDW 12.5 (11.5-14.5) % Plt Count 269 (120.0-450.0) 10^3/uL MPV 9.8 (7.0-11.0) fl Gran % 47.7 L (50.0-68.0) % Lymph % (Auto) 44.9 H (22.0-35.0) % Sanders % (Auto) 4.2 (1.0-6.0) % Eos % (Auto) 2.9 (1.5-5.0) % Baso % (Auto) 0.3 (0.0-3.0) % Gran # 4.61 (1.4-6.5) Lymph # (Auto) 4.4 H (1.2-3.4) Sanders # (Auto) 0.4 (0.1-0.6) Eos # (Auto) 0.3 (0.0-0.7) Baso # (Auto) 0.03 (0.0-2.0) K/mm3 pO2 (30-55) mm/Hg VBG pH (7.32-7.43) VBG pCO2 (40-60) VBG HCO3 (21-28) mmol/l VBG Total CO2 (22-28) mmol.L VBG O2 Sat (Calc) (40-65) % VBG Base Excess (0.0-2.0) mmol/L VBG Potassium (3.6-5.2) mmol/L Sodium (132-148) mmol/L Chloride (98-107) mmol/L Glucose (65-105) mg/dl Lactate (0.7-2.1) mmol/L FiO2 % Potassium (3.6-5.0) mmol/L Carbon Dioxide (21-33) mmol/L Anion Gap (10-20) BUN (7-21) mg/dL Creatinine (0.7-1.2) mg/dl Est GFR ( Amer) Est GFR (Non-Af Amer) POC Glucose (mg/dL) 264 H 391 H (65-110) mg/dL Random Glucose (70-110) mg/dL Lactic Acid (0.7-2.1) mmol/L Calcium (8.4-10.5) mg/dL Phosphorus (2.5-4.5) mg/dL Magnesium (1.7-2.2) mg/dL Iron (45-180) ug/dL TIBC (265-497) ug/dL % Saturation (20-55) % Total Bilirubin (0.2-1.3) mg/dL AST (14-36) U/L ALT (7-56) U/L Alkaline Phosphatase (38-126) U/L Troponin I ng/mL NT-Pro-B Natriuret Pep (0-450) pg/mL Total Protein (5.8-8.3) g/dL Albumin (3.0-4.8) g/dL Globulin gm/dL Albumin/Globulin Ratio (1.1-1.8) Triglycerides (35-160) mg/dL Cholesterol (130-200) mg/dL LDL Cholesterol Direct (0-129) mg/dL HDL Cholesterol (29-60) mg/dL Venous Blood Potassium (3.6-5.2) mmol/L Urine Color (YELLOW) Urine Appearance (CLEAR) Urine pH (4.7-8.0) Ur Specific [place] (1.005-1.035) Urine Protein (<30 mg/dL) mg/dL Urine Glucose (UA) (NEGATIVE) mg/dL Urine Ketones (NEGATIVE) mg/dL Urine Blood (NEGATIVE) Urine Nitrate (NEGATIVE) Urine Bilirubin (NEGATIVE) Urine Urobilinogen (<1 E.U./dL) E.U./dL Ur Leukocyte Esterase (NEGATIVE) Nicole/uL Urine RBC (0-2) /hpf Urine WBC (0-6) /hpf Ur Epithelial Cells (0-5) /hpf Urine Bacteria (NONE) /hpf 03/23/18 03/23/18 03/23/18 Range/Units 19:15 19:15 18:15 WBC (4.5-11.0) 10^3/uL RBC (3.5-6.1) 10^6/uL Hgb (12.0-16.0) g/dL Hct (36.0-48.0) % MCV (80.0-105.0) fl MCH (25.0-35.0) pg MCHC (31.0-37.0) g/dl RDW (11.5-14.5) % Plt Count (120.0-450.0) 10^3/uL MPV (7.0-11.0) fl Gran % (50.0-68.0) % Lymph % (Auto) (22.0-35.0) % Sanders % (Auto) (1.0-6.0) % Eos % (Auto) (1.5-5.0) % Baso % (Auto) (0.0-3.0) % Gran # (1.4-6.5) Lymph # (Auto) (1.2-3.4) Sanders # (Auto) (0.1-0.6) Eos # (Auto) (0.0-0.7) Baso # (Auto) (0.0-2.0) K/mm3 pO2 95 H (30-55) mm/Hg VBG pH 7.35 (7.32-7.43) VBG pCO2 37.0 L (40-60) VBG HCO3 20.4 L (21-28) mmol/l VBG Total CO2 21.5 L (22-28) mmol.L VBG O2 Sat (Calc) 98.9 H (40-65) % VBG Base Excess -4.7 L (0.0-2.0) mmol/L VBG Potassium 3.6 (3.6-5.2) mmol/L Sodium 134 135.0 (132-148) mmol/L Chloride 97 L 95.0 L (98-107) mmol/L Glucose 581 H* (65-105) mg/dl Lactate 6.0 H* (0.7-2.1) mmol/L FiO2 21.0 % Potassium 3.7 (3.6-5.0) mmol/L Carbon Dioxide 19 L (21-33) mmol/L Anion Gap 22 H (10-20) BUN 26 H (7-21) mg/dL Creatinine 1.1 (0.7-1.2) mg/dl Est GFR ( Amer) > 60 Est GFR (Non-Af Amer) 50 POC Glucose (mg/dL) (65-110) mg/dL Random Glucose 549 H* (70-110) mg/dL Lactic Acid (0.7-2.1) mmol/L Calcium 9.6 (8.4-10.5) mg/dL Phosphorus 3.3 (2.5-4.5) mg/dL Magnesium 1.6 L (1.7-2.2) mg/dL Iron (45-180) ug/dL TIBC (265-497) ug/dL % Saturation (20-55) % Total Bilirubin 0.5 (0.2-1.3) mg/dL AST 29 (14-36) U/L ALT 25 (7-56) U/L Alkaline Phosphatase 129 H (38-126) U/L Troponin I 0.01 ng/mL NT-Pro-B Natriuret Pep 432 (0-450) pg/mL Total Protein 8.0 (5.8-8.3) g/dL Albumin 4.5 (3.0-4.8) g/dL Globulin 3.5 gm/dL Albumin/Globulin Ratio 1.3 (1.1-1.8) Triglycerides (35-160) mg/dL Cholesterol (130-200) mg/dL LDL Cholesterol Direct (0-129) mg/dL HDL Cholesterol (29-60) mg/dL Venous Blood Potassium 3.6 (3.6-5.2) mmol/L Urine Color Yellow (YELLOW) Urine Appearance Clear (CLEAR) Urine pH 6.0 (4.7-8.0) Ur Specific [place] 1.020 (1.005-1.035) Urine Protein Negative (<30 mg/dL) mg/dL Urine Glucose (UA) >=1000 (NEGATIVE) mg/dL Urine Ketones Negative (NEGATIVE) mg/dL Urine Blood Negative (NEGATIVE) Urine Nitrate Negative (NEGATIVE) Urine Bilirubin Negative (NEGATIVE) Urine Urobilinogen 0.2 (<1 E.U./dL) E.U./dL Ur Leukocyte Esterase Small H (NEGATIVE) Nicole/uL Urine RBC 1 - 3 H (0-2) /hpf Urine WBC 10 - 15 H (0-6) /hpf Ur Epithelial Cells 1 - 3 (0-5) /hpf Urine Bacteria Few (NONE) /hpf Laboratory Results - last 24 hr 03/23/18 03/23/18 03/23/18 18:15 19:15 19:15 WBC RBC Hgb Hct MCV MCH MCHC RDW Plt Count MPV Gran % Lymph % (Auto) [place] % (Auto) Eos % (Auto) Baso % (Auto) Gran # Lymph # (Auto) [place] # (Auto) Eos # (Auto) Baso # (Auto) pO2 95 H VBG pH 7.35 VBG pCO2 37.0 L VBG HCO3 20.4 L VBG Total CO2 21.5 L VBG O2 Sat (Calc) 98.9 H VBG Base Excess -4.7 L VBG Potassium 3.6 Sodium 135.0 134 Chloride 95.0 L 97 L Glucose 581 H* Lactate 6.0 H* FiO2 21.0 Potassium 3.7 Carbon Dioxide 19 L Anion Gap 22 H BUN 26 H Creatinine 1.1 Est GFR ( Amer) > 60 Est GFR (Non-Af Amer) 50 POC Glucose (mg/dL) Random Glucose 549 H* Lactic Acid Calcium 9.6 Phosphorus 3.3 Magnesium 1.6 L Iron TIBC % Saturation Total Bilirubin 0.5 AST 29 ALT 25 Alkaline Phosphatase 129 H Troponin I 0.01 NT-Pro-B Natriuret Pep 432 Total Protein 8.0 Albumin 4.5 Globulin 3.5 Albumin/Globulin Ratio 1.3 Triglycerides Cholesterol LDL Cholesterol Direct HDL Cholesterol Venous Blood Potassium 3.6 Urine Color Yellow Urine Appearance Clear Urine pH 6.0 Ur Specific [place] 1.020 Urine Protein Negative Urine Glucose (UA) >=1000 Urine Ketones Negative Urine Blood Negative Urine Nitrate Negative Urine Bilirubin Negative Urine Urobilinogen 0.2 Ur Leukocyte Esterase Small H Urine RBC 1 - 3 H Urine WBC 10 - 15 H Ur Epithelial Cells 1 - 3 Urine Bacteria Few 03/23/18 03/23/18 03/23/18 19:15 21:04 21:55 WBC 9.7 RBC 3.82 Hgb 11.8 L Hct 34.7 L MCV 90.8 MCH 30.9 MCHC 34.0 RDW 12.5 Plt Count 269 MPV 9.8 Gran % 47.7 L Lymph % (Auto) 44.9 H [place] % (Auto) 4.2 Eos % (Auto) 2.9 Baso % (Auto) 0.3 Gran # 4.61 Lymph # (Auto) 4.4 H [place] # (Auto) 0.4 Eos # (Auto) 0.3 Baso # (Auto) 0.03 pO2 VBG pH VBG pCO2 VBG HCO3 VBG Total CO2 VBG O2 Sat (Calc) VBG Base Excess VBG Potassium Sodium Chloride Glucose Lactate FiO2 Potassium Carbon Dioxide Anion Gap BUN Creatinine Est GFR ( Amer) Est GFR (Non-Af Amer) POC Glucose (mg/dL) 391 H 264 H Random Glucose Lactic Acid Calcium Phosphorus Magnesium Iron TIBC % Saturation Total Bilirubin AST ALT Alkaline Phosphatase Troponin I NT-Pro-B Natriuret Pep Total Protein Albumin Globulin Albumin/Globulin Ratio Triglycerides Cholesterol LDL Cholesterol Direct HDL Cholesterol Venous Blood Potassium Urine Color Urine Appearance Urine pH Ur Specific [place] Urine Protein Urine Glucose (UA) Urine Ketones Urine Blood Urine Nitrate Urine Bilirubin Urine Urobilinogen Ur Leukocyte Esterase Urine RBC Urine WBC Ur Epithelial Cells Urine Bacteria 03/24/18 03/24/18 03/24/18 00:05 00:05 00:05 WBC RBC Hgb Hct MCV MCH MCHC RDW Plt Count MPV Gran % Lymph % (Auto) [place] % (Auto) Eos % (Auto) Baso % (Auto) Gran # Lymph # (Auto) [place] # (Auto) Eos # (Auto) Baso # (Auto) pO2 50 VBG pH 7.38 VBG pCO2 44.0 VBG HCO3 26.0 VBG Total CO2 27.4 VBG O2 Sat (Calc) 87.2 H VBG Base Excess 0.5 VBG Potassium 3.1 L Sodium 141.0 140 Chloride 107.0 106 Glucose 161 H Lactate 1.4 FiO2 21.0 Potassium 3.1 L Carbon Dioxide 26 Anion Gap 10 BUN 20 Creatinine 0.9 Est GFR ( Amer) > 60 Est GFR (Non-Af Amer) > 60 POC Glucose (mg/dL) Random Glucose 156 H Lactic Acid Calcium 8.6 Phosphorus Magnesium Iron 43 L TIBC 308 % Saturation 14 L Total Bilirubin AST ALT Alkaline Phosphatase Troponin I 0.02 D NT-Pro-B Natriuret Pep Total Protein Albumin Globulin Albumin/Globulin Ratio Triglycerides Cholesterol LDL Cholesterol Direct HDL Cholesterol Venous Blood Potassium 3.1 L Urine Color Urine Appearance Urine pH Ur Specific [place] Urine Protein Urine Glucose (UA) Urine Ketones Urine Blood Urine Nitrate Urine Bilirubin Urine Urobilinogen Ur Leukocyte Esterase Urine RBC Urine WBC Ur Epithelial Cells Urine Bacteria 03/24/18 03/24/18 03/24/18 04:35 06:00 06:00 WBC 7.9 RBC 3.98 Hgb 12.3 Hct 35.9 L MCV 90.2 MCH 30.9 MCHC 34.3 RDW 12.5 Plt Count 276 MPV 9.7 Gran % 47.5 L Lymph % (Auto) 41.3 H [place] % (Auto) 6.8 H Eos % (Auto) 3.9 Baso % (Auto) 0.5 Gran # 3.77 Lymph # (Auto) 3.3 Sanders # (Auto) 0.5 Eos # (Auto) 0.3 Baso # (Auto) 0.04 pO2 VBG pH VBG pCO2 VBG HCO3 VBG Total CO2 VBG O2 Sat (Calc) VBG Base Excess VBG Potassium Sodium 141 Chloride 108 H Glucose Lactate FiO2 Potassium 4.2 Carbon Dioxide 25 Anion Gap 12 BUN 15 Creatinine 0.8 Est GFR ( Amer) > 60 Est GFR (Non-Af Amer) > 60 POC Glucose (mg/dL) 159 H Random Glucose 216 H Lactic Acid Calcium 8.5 Phosphorus Magnesium Iron TIBC % Saturation Total Bilirubin 0.7 AST 28 ALT 28 Alkaline Phosphatase 115 Troponin I 0.02 NT-Pro-B Natriuret Pep Total Protein 7.5 Albumin 3.9 Globulin 3.5 Albumin/Globulin Ratio 1.1 Triglycerides 104 Cholesterol 284 H LDL Cholesterol Direct 172 H HDL Cholesterol 65 H Venous Blood Potassium Urine Color Urine Appearance Urine pH Ur Specific [place] Urine Protein Urine Glucose (UA) Urine Ketones Urine Blood Urine Nitrate Urine Bilirubin Urine Urobilinogen Ur Leukocyte Esterase Urine RBC Urine WBC Ur Epithelial Cells Urine Bacteria 03/24/18 03/24/18 03/24/18 06:00 07:25 07:30 WBC RBC Hgb Hct MCV MCH MCHC RDW Plt Count MPV Gran % Lymph % (Auto) Sanders % (Auto) Eos % (Auto) Baso % (Auto) Gran # Lymph # (Auto) Sanders # (Auto) Eos # (Auto) Baso # (Auto) pO2 VBG pH VBG pCO2 VBG HCO3 VBG Total CO2 VBG O2 Sat (Calc) VBG Base Excess VBG Potassium Sodium Chloride Glucose Lactate FiO2 Potassium Carbon Dioxide Anion Gap BUN Creatinine Est GFR ( Amer) Est GFR (Non-Af Amer) POC Glucose (mg/dL) 247 H Random Glucose Lactic Acid 2.4 H Calcium Phosphorus Magnesium 2.0 Iron TIBC % Saturation Total Bilirubin AST ALT Alkaline Phosphatase Troponin I NT-Pro-B Natriuret Pep Total Protein Albumin Globulin Albumin/Globulin Ratio Triglycerides Cholesterol LDL Cholesterol Direct HDL Cholesterol Venous Blood Potassium Urine Color Urine Appearance Urine pH Ur Specific [place] Urine Protein Urine Glucose (UA) Urine Ketones Urine Blood Urine Nitrate Urine Bilirubin Urine Urobilinogen Ur Leukocyte Esterase Urine RBC Urine WBC Ur Epithelial Cells Urine Bacteria Radiology Impressions: Radiology Impressions Head CT 03/23/18 19:00 IMPRESSION: No acute intracranial findings Abdomen Ultrasound 03/23/18 21:10 IMPRESSION: No cholelithiasis or biliary dilatation. No acute findings. EKG/Cardiology Studies: Cardiology / EKG Studies 03/23/18 19:03 ELECTROCARDIOGRAM Stat Comment: Reason For Exam: ams Fingerstick Blood Sugar Results: 247 Review of Systems - Review of Systems All systems: reviewed and no additional remarkable complaints except (as mentioned in HPI) Critical Care Progress Note - Nutrition Nutrition: Nutrition Category Date Time Status Heart Healthy Diet [DIET] Diets 03/24/18 Breakfast Active Assessment/Plan - Assessment and Plan (Free Text) Assessment: 63 F with past medical history of CAD, MA s/p stent LCX in 2011, HTN, HLD, and DM2 who presented to [facility] ED for AMS with bg noted to be >500 admitted to ICU for HHS Plan: Neuro: AMS -Likely secondary to HHS -AAOx2 -No focal neuro deficits appreciated -CT Head(03/23/18): Generalized atrophy, chronic microvascular disease -Treat underlying HHS and monitor neuro status -UDS pending -Vitamin levels ordered Cardio: HTN, HLD, CAD s/p cath LCX 2011,AICD -Maintain MAP >65 -EKG no prominent ST wave depression/elevation -Trops negative x2 CH 284, LDL 172, HDL 65 -Metoprolol 25 BID -ASA/Plavix -Lipitor 20mg QHS -Echocardiogram ordered Pulm: -CXR(03/24/18): No active disease -Maintain SaO2 >92% -Supplemental O2 as needed -Duonebs Q6h, Budesonide Q12 GI: RUQ tenderness RUQ ultrasound no cholelithiasis or biliary dilatation, no acute findings - LFT wnl, Bili wnl Endo: HHS in the setting of DM2 -Elevated AG of 18 without ketone urine, pH of 7.35, BG on admission 549 -Etiology: poor medication compliance, poor carb consistent diet compliance -ISS medium -ACHS -IVF 125mL/hr -Endo consulted Heme/Onc: - HDS, H/H stable - Maintain Hgb >7 Renal: - BUN/Cr stable -Maintain euvolemia, replete lytes as needed ID: Afebrile no leukocytosis UA showing small leuk est, WBC 10-15, asymptomatic hold tx Bclx, Uclx CXR without active disease UA WBC 10-15, Leuk Est Small, Nitrate Negative Patient case and plan discussed with attending, Dr. Grajeda <Kylie Grajeda - Last Filed: 03/24/18 17:58> CCU Objective - Vital Signs / Intake & Output Vital Signs (Last 4 hours): Vital Signs Temp Pulse Resp BP Pulse Ox 03/24/18 17:20 98.4 F 03/24/18 16:30 68 14 97 03/24/18 16:20 79 16 97 03/24/18 16:10 75 14 93 L 03/24/18 16:00 68 14 163/79 H 92 L 03/24/18 15:50 74 21 100 03/24/18 15:40 69 16 99 03/24/18 15:30 69 14 91 L 03/24/18 15:20 69 15 100 03/24/18 15:10 69 14 96 03/24/18 15:01 69 14 131/76 99 03/24/18 15:00 69 17 100 03/24/18 14:50 73 27 H 100 03/24/18 14:40 73 18 100 03/24/18 14:30 71 19 97 03/24/18 14:20 77 21 79 L 03/24/18 14:10 73 14 100 03/24/18 14:00 79 15 147/83 99 Intake and Output (Last 8hrs): Intake & Output 03/24/18 03/24/18 03/24/18 06:59 14:59 22:59 Intake Total 1080 1625 Output Total 1600 900 Balance -520 725 Weight 82.236 kg Intake: IV 1000 1125 Right Wrist 1000 1125 Oral 80 500 Output: Urine 1600 900 Urine, Voided 1600 900 Stool 0 Emesis 0 Other: # Bowel Movements 1 - Medications Active Medications: Active Medications Generic Name Dose Route Start Last Admin Trade Name Freq PRN Reason Stop Dose Admin Albuterol/Ipratropium 3 ml 03/24/18 02:00 03/24/18 13:11 Duoneb 3 Mg/0.5 Mg (3 Ml) Ud IH 3 ml [id number] ANUP Administration Aspirin 81 mg 03/24/18 10:00 03/24/18 09:55 Ecotrin PO 81 mg DAILY ANUP Administration Atorvastatin Calcium 20 mg 03/24/18 17:00 03/24/18 16:17 Lipitor PO 20 mg DIN ANUP Administration Budesonide 0.25 mg 03/24/18 08:00 03/24/18 08:18 Pulmicort Respules IH 0.25 mg [id number] ANUP Administration Clopidogrel Bisulfate 75 mg 03/24/18 10:00 03/24/18 09:55 Plavix PO 75 mg DAILY ANUP Administration Dextrose 0 ml 03/23/18 21:12 Dextrose 50% Inj IV STAT PRN Hypoglycemia Protocol Protocol Hydrochlorothiazide 25 mg 03/24/18 10:00 03/24/18 09:55 Hydrodiuril PO 25 mg DAILY ANUP Administration Sodium Chloride 1,000 mls @ 125 mls/hr 03/23/18 21:15 03/24/18 05:51 Sodium Chloride 0.9% IV 125 mls/hr .Q8H ANUP Administration Dextrose 1,000 mls @ 0 mls/hr 03/23/18 21:12 Dextrose 5% In Water 1000 Ml IV .Q0M PRN Hypoglycemia Protocol Protocol Per Protocol Insulin Human Regular 0 units 03/23/18 23:52 03/24/18 16:16 Humulin R Med SC 8 unit Q4H ANUP Administration Protocol Lisinopril 10 mg 03/24/18 10:00 03/24/18 09:51 Zestril PO 10 mg DAILY ANUP Administration Metoprolol Tartrate 50 mg 03/24/18 10:00 03/24/18 12:22 Lopressor PO Not Given DAILY ANUP Pantoprazole Sodium 40 mg 03/25/18 07:30 Protonix Ec Tab PO ACB ANUP - Patient Studies Lab Studies: Lab Studies 03/24/18 03/24/18 03/24/18 Range/Units 11:13 10:30 10:30 WBC (4.5-11.0) 10^3/uL RBC (3.5-6.1) 10^6/uL Hgb (12.0-16.0) g/dL Hct (36.0-48.0) % MCV (80.0-105.0) fl MCH (25.0-35.0) pg MCHC (31.0-37.0) g/dl RDW (11.5-14.5) % Plt Count (120.0-450.0) 10^3/uL MPV (7.0-11.0) fl Gran % (50.0-68.0) % Lymph % (Auto) (22.0-35.0) % Sanders % (Auto) (1.0-6.0) % Eos % (Auto) (1.5-5.0) % Baso % (Auto) (0.0-3.0) % Gran # (1.4-6.5) Lymph # (Auto) (1.2-3.4) Sanders # (Auto) (0.1-0.6) Eos # (Auto) (0.0-0.7) Baso # (Auto) (0.0-2.0) K/mm3 pO2 (30-55) mm/Hg VBG pH (7.32-7.43) VBG pCO2 (40-60) VBG HCO3 (21-28) mmol/l VBG Total CO2 (22-28) mmol.L VBG O2 Sat (Calc) (40-65) % VBG Base Excess (0.0-2.0) mmol/L VBG Potassium (3.6-5.2) mmol/L Sodium (132-148) mmol/L Chloride (98-107) mmol/L Glucose (65-105) mg/dl Lactate (0.7-2.1) mmol/L FiO2 % Potassium (3.6-5.0) mmol/L Carbon Dioxide (21-33) mmol/L Anion Gap (10-20) BUN (7-21) mg/dL Creatinine (0.7-1.2) mg/dl Est GFR ( Amer) Est GFR (Non-Af Amer) POC Glucose (mg/dL) 347 H (65-110) mg/dL Random Glucose (70-110) mg/dL Hemoglobin A1c (4.2-6.5) % Lactic Acid (0.7-2.1) mmol/L Calcium (8.4-10.5) mg/dL Phosphorus (2.5-4.5) mg/dL Magnesium (1.7-2.2) mg/dL Iron (45-180) ug/dL TIBC (265-497) ug/dL % Saturation (20-55) % Ferritin ng/mL Total Bilirubin (0.2-1.3) mg/dL AST (14-36) U/L ALT (7-56) U/L Alkaline Phosphatase (38-126) U/L Troponin I ng/mL NT-Pro-B Natriuret Pep (0-450) pg/mL Total Protein (5.8-8.3) g/dL Albumin (3.0-4.8) g/dL Globulin gm/dL Albumin/Globulin Ratio (1.1-1.8) Triglycerides (35-160) mg/dL Cholesterol (130-200) mg/dL LDL Cholesterol Direct (0-129) mg/dL HDL Cholesterol (29-60) mg/dL Vitamin B12 (239-931) pg/mL Folate ng/mL Venous Blood Potassium (3.6-5.2) mmol/L Urine Color (YELLOW) Urine Appearance (CLEAR) Urine pH (4.7-8.0) Ur Specific [place] (1.005-1.035) Urine Protein (<30 mg/dL) mg/dL Urine Glucose (UA) (NEGATIVE) mg/dL Urine Ketones (NEGATIVE) mg/dL Urine Blood (NEGATIVE) Urine Nitrate (NEGATIVE) Urine Bilirubin (NEGATIVE) Urine Urobilinogen (<1 E.U./dL) E.U./dL Ur Leukocyte Esterase (NEGATIVE) Nicole/uL Urine RBC (0-2) /hpf Urine WBC (0-6) /hpf Ur Epithelial Cells (0-5) /hpf Urine Bacteria (NONE) /hpf Alcohol, Quantitative < 10 (0-10) mg/dL B-Hydroxybutyrate (0.02-0.27) mM RPR Nonreactive (NONREACTIVE) 03/24/18 03/24/18 03/24/18 Range/Units 07:30 07:25 06:00 WBC (4.5-11.0) 10^3/uL RBC (3.5-6.1) 10^6/uL Hgb (12.0-16.0) g/dL Hct (36.0-48.0) % MCV (80.0-105.0) fl MCH (25.0-35.0) pg MCHC (31.0-37.0) g/dl RDW (11.5-14.5) % Plt Count (120.0-450.0) 10^3/uL MPV (7.0-11.0) fl Gran % (50.0-68.0) % Lymph % (Auto) (22.0-35.0) % Sanders % (Auto) (1.0-6.0) % Eos % (Auto) (1.5-5.0) % Baso % (Auto) (0.0-3.0) % Gran # (1.4-6.5) Lymph # (Auto) (1.2-3.4) Sanders # (Auto) (0.1-0.6) Eos # (Auto) (0.0-0.7) Baso # (Auto) (0.0-2.0) K/mm3 pO2 (30-55) mm/Hg VBG pH (7.32-7.43) VBG pCO2 (40-60) VBG HCO3 (21-28) mmol/l VBG Total CO2 (22-28) mmol.L VBG O2 Sat (Calc) (40-65) % VBG Base Excess (0.0-2.0) mmol/L VBG Potassium (3.6-5.2) mmol/L Sodium (132-148) mmol/L Chloride (98-107) mmol/L Glucose (65-105) mg/dl Lactate (0.7-2.1) mmol/L FiO2 % Potassium (3.6-5.0) mmol/L Carbon Dioxide (21-33) mmol/L Anion Gap (10-20) BUN (7-21) mg/dL Creatinine (0.7-1.2) mg/dl Est GFR ( Amer) Est GFR (Non-Af Amer) POC Glucose (mg/dL) 247 H (65-110) mg/dL Random Glucose (70-110) mg/dL Hemoglobin A1c (4.2-6.5) % Lactic Acid 2.4 H (0.7-2.1) mmol/L Calcium (8.4-10.5) mg/dL Phosphorus (2.5-4.5) mg/dL Magnesium 2.0 (1.7-2.2) mg/dL Iron (45-180) ug/dL TIBC (265-497) ug/dL % Saturation (20-55) % Ferritin ng/mL Total Bilirubin (0.2-1.3) mg/dL AST (14-36) U/L ALT (7-56) U/L Alkaline Phosphatase (38-126) U/L Troponin I ng/mL NT-Pro-B Natriuret Pep (0-450) pg/mL Total Protein (5.8-8.3) g/dL Albumin (3.0-4.8) g/dL Globulin gm/dL Albumin/Globulin Ratio (1.1-1.8) Triglycerides (35-160) mg/dL Cholesterol (130-200) mg/dL LDL Cholesterol Direct (0-129) mg/dL HDL Cholesterol (29-60) mg/dL Vitamin B12 (239-931) pg/mL Folate ng/mL Venous Blood Potassium (3.6-5.2) mmol/L Urine Color (YELLOW) Urine Appearance (CLEAR) Urine pH (4.7-8.0) Ur Specific [place] (1.005-1.035) Urine Protein (<30 mg/dL) mg/dL Urine Glucose (UA) (NEGATIVE) mg/dL Urine Ketones (NEGATIVE) mg/dL Urine Blood (NEGATIVE) Urine Nitrate (NEGATIVE) Urine Bilirubin (NEGATIVE) Urine Urobilinogen (<1 E.U./dL) E.U./dL Ur Leukocyte Esterase (NEGATIVE) Nicole/uL Urine RBC (0-2) /hpf Urine WBC (0-6) /hpf Ur Epithelial Cells (0-5) /hpf Urine Bacteria (NONE) /hpf Alcohol, Quantitative (0-10) mg/dL B-Hydroxybutyrate (0.02-0.27) mM RPR (NONREACTIVE) 03/24/18 03/24/18 03/24/18 Range/Units 06:00 06:00 06:00 WBC 7.9 (4.5-11.0) 10^3/uL RBC 3.98 (3.5-6.1) 10^6/uL Hgb 12.3 (12.0-16.0) g/dL Hct 35.9 L (36.0-48.0) % MCV 90.2 (80.0-105.0) fl MCH 30.9 (25.0-35.0) pg MCHC 34.3 (31.0-37.0) g/dl RDW 12.5 (11.5-14.5) % Plt Count 276 (120.0-450.0) 10^3/uL MPV 9.7 (7.0-11.0) fl Gran % 47.5 L (50.0-68.0) % Lymph % (Auto) 41.3 H (22.0-35.0) % Sanders % (Auto) 6.8 H (1.0-6.0) % Eos % (Auto) 3.9 (1.5-5.0) % Baso % (Auto) 0.5 (0.0-3.0) % Gran # 3.77 (1.4-6.5) Lymph # (Auto) 3.3 (1.2-3.4) Sanders # (Auto) 0.5 (0.1-0.6) Eos # (Auto) 0.3 (0.0-0.7) Baso # (Auto) 0.04 (0.0-2.0) K/mm3 pO2 (30-55) mm/Hg VBG pH (7.32-7.43) VBG pCO2 (40-60) VBG HCO3 (21-28) mmol/l VBG Total CO2 (22-28) mmol.L VBG O2 Sat (Calc) (40-65) % VBG Base Excess (0.0-2.0) mmol/L VBG Potassium (3.6-5.2) mmol/L Sodium 141 (132-148) mmol/L Chloride 108 H (98-107) mmol/L Glucose (65-105) mg/dl Lactate (0.7-2.1) mmol/L FiO2 % Potassium 4.2 (3.6-5.0) mmol/L Carbon Dioxide 25 (21-33) mmol/L Anion Gap 12 (10-20) BUN 15 (7-21) mg/dL Creatinine 0.8 (0.7-1.2) mg/dl Est GFR ( Amer) > 60 Est GFR (Non-Af Amer) > 60 POC Glucose (mg/dL) (65-110) mg/dL Random Glucose 216 H (70-110) mg/dL Hemoglobin A1c 13.3 H (4.2-6.5) % Lactic Acid (0.7-2.1) mmol/L Calcium 8.5 (8.4-10.5) mg/dL Phosphorus (2.5-4.5) mg/dL Magnesium (1.7-2.2) mg/dL Iron (45-180) ug/dL TIBC (265-497) ug/dL % Saturation (20-55) % Ferritin ng/mL Total Bilirubin 0.7 (0.2-1.3) mg/dL AST 28 (14-36) U/L ALT 28 (7-56) U/L Alkaline Phosphatase 115 (38-126) U/L Troponin I 0.02 ng/mL NT-Pro-B Natriuret Pep (0-450) pg/mL Total Protein 7.5 (5.8-8.3) g/dL Albumin 3.9 (3.0-4.8) g/dL Globulin 3.5 gm/dL Albumin/Globulin Ratio 1.1 (1.1-1.8) Triglycerides 104 (35-160) mg/dL Cholesterol 284 H (130-200) mg/dL LDL Cholesterol Direct 172 H (0-129) mg/dL HDL Cholesterol 65 H (29-60) mg/dL Vitamin B12 (239-931) pg/mL Folate ng/mL Venous Blood Potassium (3.6-5.2) mmol/L Urine Color (YELLOW) Urine Appearance (CLEAR) Urine pH (4.7-8.0) Ur Specific [place] (1.005-1.035) Urine Protein (<30 mg/dL) mg/dL Urine Glucose (UA) (NEGATIVE) mg/dL Urine Ketones (NEGATIVE) mg/dL Urine Blood (NEGATIVE) Urine Nitrate (NEGATIVE) Urine Bilirubin (NEGATIVE) Urine Urobilinogen (<1 E.U./dL) E.U./dL Ur Leukocyte Esterase (NEGATIVE) Nicole/uL Urine RBC (0-2) /hpf Urine WBC (0-6) /hpf Ur Epithelial Cells (0-5) /hpf Urine Bacteria (NONE) /hpf Alcohol, Quantitative (0-10) mg/dL B-Hydroxybutyrate (0.02-0.27) mM RPR (NONREACTIVE) 03/24/18 03/24/18 03/24/18 Range/Units 04:35 00:05 00:05 WBC (4.5-11.0) 10^3/uL RBC (3.5-6.1) 10^6/uL Hgb (12.0-16.0) g/dL Hct (36.0-48.0) % MCV (80.0-105.0) fl MCH (25.0-35.0) pg MCHC (31.0-37.0) g/dl RDW (11.5-14.5) % Plt Count (120.0-450.0) 10^3/uL MPV (7.0-11.0) fl Gran % (50.0-68.0) % Lymph % (Auto) (22.0-35.0) % Sanders % (Auto) (1.0-6.0) % Eos % (Auto) (1.5-5.0) % Baso % (Auto) (0.0-3.0) % Gran # (1.4-6.5) Lymph # (Auto) (1.2-3.4) Sanders # (Auto) (0.1-0.6) Eos # (Auto) (0.0-0.7) Baso # (Auto) (0.0-2.0) K/mm3 pO2 50 (30-55) mm/Hg VBG pH 7.38 (7.32-7.43) VBG pCO2 44.0 (40-60) VBG HCO3 26.0 (21-28) mmol/l VBG Total CO2 27.4 (22-28) mmol.L VBG O2 Sat (Calc) 87.2 H (40-65) % VBG Base Excess 0.5 (0.0-2.0) mmol/L VBG Potassium 3.1 L (3.6-5.2) mmol/L Sodium 140 141.0 (132-148) mmol/L Chloride 106 107.0 (98-107) mmol/L Glucose 161 H (65-105) mg/dl Lactate 1.4 (0.7-2.1) mmol/L FiO2 21.0 % Potassium 3.1 L (3.6-5.0) mmol/L Carbon Dioxide 26 (21-33) mmol/L Anion Gap 10 (10-20) BUN 20 (7-21) mg/dL Creatinine 0.9 (0.7-1.2) mg/dl Est GFR ( Amer) > 60 Est GFR (Non-Af Amer) > 60 POC Glucose (mg/dL) 159 H (65-110) mg/dL Random Glucose 156 H (70-110) mg/dL Hemoglobin A1c (4.2-6.5) % Lactic Acid (0.7-2.1) mmol/L Calcium 8.6 (8.4-10.5) mg/dL Phosphorus (2.5-4.5) mg/dL Magnesium (1.7-2.2) mg/dL Iron (45-180) ug/dL TIBC (265-497) ug/dL % Saturation (20-55) % Ferritin ng/mL Total Bilirubin (0.2-1.3) mg/dL AST (14-36) U/L ALT (7-56) U/L Alkaline Phosphatase (38-126) U/L Troponin I 0.02 D ng/mL NT-Pro-B Natriuret Pep (0-450) pg/mL Total Protein (5.8-8.3) g/dL Albumin (3.0-4.8) g/dL Globulin gm/dL Albumin/Globulin Ratio (1.1-1.8) Triglycerides (35-160) mg/dL Cholesterol (130-200) mg/dL LDL Cholesterol Direct (0-129) mg/dL HDL Cholesterol (29-60) mg/dL Vitamin B12 (239-931) pg/mL Folate ng/mL Venous Blood Potassium 3.1 L (3.6-5.2) mmol/L Urine Color (YELLOW) Urine Appearance (CLEAR) Urine pH (4.7-8.0) Ur Specific [place] (1.005-1.035) Urine Protein (<30 mg/dL) mg/dL Urine Glucose (UA) (NEGATIVE) mg/dL Urine Ketones (NEGATIVE) mg/dL Urine Blood (NEGATIVE) Urine Nitrate (NEGATIVE) Urine Bilirubin (NEGATIVE) Urine Urobilinogen (<1 E.U./dL) E.U./dL Ur Leukocyte Esterase (NEGATIVE) Nicole/uL Urine RBC (0-2) /hpf Urine WBC (0-6) /hpf Ur Epithelial Cells (0-5) /hpf Urine Bacteria (NONE) /hpf Alcohol, Quantitative (0-10) mg/dL B-Hydroxybutyrate (0.02-0.27) mM RPR (NONREACTIVE) 03/24/18 03/23/18 03/23/18 Range/Units 00:05 21:55 21:04 WBC (4.5-11.0) 10^3/uL RBC (3.5-6.1) 10^6/uL Hgb (12.0-16.0) g/dL Hct (36.0-48.0) % MCV (80.0-105.0) fl MCH (25.0-35.0) pg MCHC (31.0-37.0) g/dl RDW (11.5-14.5) % Plt Count (120.0-450.0) 10^3/uL MPV (7.0-11.0) fl Gran % (50.0-68.0) % Lymph % (Auto) (22.0-35.0) % [place] % (Auto) (1.0-6.0) % Eos % (Auto) (1.5-5.0) % Baso % (Auto) (0.0-3.0) % Gran # (1.4-6.5) Lymph # (Auto) (1.2-3.4) [place] # (Auto) (0.1-0.6) Eos # (Auto) (0.0-0.7) Baso # (Auto) (0.0-2.0) K/mm3 pO2 (30-55) mm/Hg VBG pH (7.32-7.43) VBG pCO2 (40-60) VBG HCO3 (21-28) mmol/l VBG Total CO2 (22-28) mmol.L VBG O2 Sat (Calc) (40-65) % VBG Base Excess (0.0-2.0) mmol/L VBG Potassium (3.6-5.2) mmol/L Sodium (132-148) mmol/L Chloride (98-107) mmol/L Glucose (65-105) mg/dl Lactate (0.7-2.1) mmol/L FiO2 % Potassium (3.6-5.0) mmol/L Carbon Dioxide (21-33) mmol/L Anion Gap (10-20) BUN (7-21) mg/dL Creatinine (0.7-1.2) mg/dl Est GFR ( Amer) Est GFR (Non-Af Amer) POC Glucose (mg/dL) 264 H 391 H (65-110) mg/dL Random Glucose (70-110) mg/dL Hemoglobin A1c (4.2-6.5) % Lactic Acid (0.7-2.1) mmol/L Calcium (8.4-10.5) mg/dL Phosphorus (2.5-4.5) mg/dL Magnesium (1.7-2.2) mg/dL Iron 43 L (45-180) ug/dL TIBC 308 (265-497) ug/dL % Saturation 14 L (20-55) % Ferritin ng/mL Total Bilirubin (0.2-1.3) mg/dL AST (14-36) U/L ALT (7-56) U/L Alkaline Phosphatase (38-126) U/L Troponin I ng/mL NT-Pro-B Natriuret Pep (0-450) pg/mL Total Protein (5.8-8.3) g/dL Albumin (3.0-4.8) g/dL Globulin gm/dL Albumin/Globulin Ratio (1.1-1.8) Triglycerides (35-160) mg/dL Cholesterol (130-200) mg/dL LDL Cholesterol Direct (0-129) mg/dL HDL Cholesterol (29-60) mg/dL Vitamin B12 (239-931) pg/mL Folate ng/mL Venous Blood Potassium (3.6-5.2) mmol/L Urine Color (YELLOW) Urine Appearance (CLEAR) Urine pH (4.7-8.0) Ur Specific [place] (1.005-1.035) Urine Protein (<30 mg/dL) mg/dL Urine Glucose (UA) (NEGATIVE) mg/dL Urine Ketones (NEGATIVE) mg/dL Urine Blood (NEGATIVE) Urine Nitrate (NEGATIVE) Urine Bilirubin (NEGATIVE) Urine Urobilinogen (<1 E.U./dL) E.U./dL Ur Leukocyte Esterase (NEGATIVE) Nicole/uL Urine RBC (0-2) /hpf Urine WBC (0-6) /hpf Ur Epithelial Cells (0-5) /hpf Urine Bacteria (NONE) /hpf Alcohol, Quantitative (0-10) mg/dL B-Hydroxybutyrate (0.02-0.27) mM RPR (NONREACTIVE) 03/23/18 03/23/18 03/23/18 Range/Units 19:15 19:15 19:15 WBC 9.7 (4.5-11.0) 10^3/uL RBC 3.82 (3.5-6.1) 10^6/uL Hgb 11.8 L (12.0-16.0) g/dL Hct 34.7 L (36.0-48.0) % MCV 90.8 (80.0-105.0) fl MCH 30.9 (25.0-35.0) pg MCHC 34.0 (31.0-37.0) g/dl RDW 12.5 (11.5-14.5) % Plt Count 269 (120.0-450.0) 10^3/uL MPV 9.8 (7.0-11.0) fl Gran % 47.7 L (50.0-68.0) % Lymph % (Auto) 44.9 H (22.0-35.0) % [place] % (Auto) 4.2 (1.0-6.0) % Eos % (Auto) 2.9 (1.5-5.0) % Baso % (Auto) 0.3 (0.0-3.0) % Gran # 4.61 (1.4-6.5) Lymph # (Auto) 4.4 H (1.2-3.4) [place] # (Auto) 0.4 (0.1-0.6) Eos # (Auto) 0.3 (0.0-0.7) Baso # (Auto) 0.03 (0.0-2.0) K/mm3 pO2 (30-55) mm/Hg VBG pH (7.32-7.43) VBG pCO2 (40-60) VBG HCO3 (21-28) mmol/l VBG Total CO2 (22-28) mmol.L VBG O2 Sat (Calc) (40-65) % VBG Base Excess (0.0-2.0) mmol/L VBG Potassium (3.6-5.2) mmol/L Sodium (132-148) mmol/L Chloride (98-107) mmol/L Glucose (65-105) mg/dl Lactate (0.7-2.1) mmol/L FiO2 % Potassium (3.6-5.0) mmol/L Carbon Dioxide (21-33) mmol/L Anion Gap (10-20) BUN (7-21) mg/dL Creatinine (0.7-1.2) mg/dl Est GFR ( Amer) Est GFR (Non-Af Amer) POC Glucose (mg/dL) (65-110) mg/dL Random Glucose (70-110) mg/dL Hemoglobin A1c (4.2-6.5) % Lactic Acid (0.7-2.1) mmol/L Calcium (8.4-10.5) mg/dL Phosphorus (2.5-4.5) mg/dL Magnesium (1.7-2.2) mg/dL Iron (45-180) ug/dL TIBC (265-497) ug/dL % Saturation (20-55) % Ferritin 68.7 ng/mL Total Bilirubin (0.2-1.3) mg/dL AST (14-36) U/L ALT (7-56) U/L Alkaline Phosphatase (38-126) U/L Troponin I ng/mL NT-Pro-B Natriuret Pep (0-450) pg/mL Total Protein (5.8-8.3) g/dL Albumin (3.0-4.8) g/dL Globulin gm/dL Albumin/Globulin Ratio (1.1-1.8) Triglycerides (35-160) mg/dL Cholesterol (130-200) mg/dL LDL Cholesterol Direct (0-129) mg/dL HDL Cholesterol (29-60) mg/dL Vitamin B12 478 (239-931) pg/mL Folate 8.7 ng/mL Venous Blood Potassium (3.6-5.2) mmol/L Urine Color (YELLOW) Urine Appearance (CLEAR) Urine pH (4.7-8.0) Ur Specific [place] (1.005-1.035) Urine Protein (<30 mg/dL) mg/dL Urine Glucose (UA) (NEGATIVE) mg/dL Urine Ketones (NEGATIVE) mg/dL Urine Blood (NEGATIVE) Urine Nitrate (NEGATIVE) Urine Bilirubin (NEGATIVE) Urine Urobilinogen (<1 E.U./dL) E.U./dL Ur Leukocyte Esterase (NEGATIVE) Nicole/uL Urine RBC (0-2) /hpf Urine WBC (0-6) /hpf Ur Epithelial Cells (0-5) /hpf Urine Bacteria (NONE) /hpf Alcohol, Quantitative (0-10) mg/dL B-Hydroxybutyrate 0.07 (0.02-0.27) mM RPR (NONREACTIVE) 03/23/18 03/23/18 03/23/18 Range/Units 19:15 19:15 18:15 WBC (4.5-11.0) 10^3/uL RBC (3.5-6.1) 10^6/uL Hgb (12.0-16.0) g/dL Hct (36.0-48.0) % MCV (80.0-105.0) fl MCH (25.0-35.0) pg MCHC (31.0-37.0) g/dl RDW (11.5-14.5) % Plt Count (120.0-450.0) 10^3/uL MPV (7.0-11.0) fl Gran % (50.0-68.0) % Lymph % (Auto) (22.0-35.0) % [place] % (Auto) (1.0-6.0) % Eos % (Auto) (1.5-5.0) % Baso % (Auto) (0.0-3.0) % Gran # (1.4-6.5) Lymph # (Auto) (1.2-3.4) [place] # (Auto) (0.1-0.6) Eos # (Auto) (0.0-0.7) Baso # (Auto) (0.0-2.0) K/mm3 pO2 95 H (30-55) mm/Hg VBG pH 7.35 (7.32-7.43) VBG pCO2 37.0 L (40-60) VBG HCO3 20.4 L (21-28) mmol/l VBG Total CO2 21.5 L (22-28) mmol.L VBG O2 Sat (Calc) 98.9 H (40-65) % VBG Base Excess -4.7 L (0.0-2.0) mmol/L VBG Potassium 3.6 (3.6-5.2) mmol/L Sodium 134 135.0 (132-148) mmol/L Chloride 97 L 95.0 L (98-107) mmol/L Glucose 581 H* (65-105) mg/dl Lactate 6.0 H* (0.7-2.1) mmol/L FiO2 21.0 % Potassium 3.7 (3.6-5.0) mmol/L Carbon Dioxide 19 L (21-33) mmol/L Anion Gap 22 H (10-20) BUN 26 H (7-21) mg/dL Creatinine 1.1 (0.7-1.2) mg/dl Est GFR ( Amer) > 60 Est GFR (Non-Af Amer) 50 POC Glucose (mg/dL) (65-110) mg/dL Random Glucose 549 H* (70-110) mg/dL Hemoglobin A1c (4.2-6.5) % Lactic Acid (0.7-2.1) mmol/L Calcium 9.6 (8.4-10.5) mg/dL Phosphorus 3.3 (2.5-4.5) mg/dL Magnesium 1.6 L (1.7-2.2) mg/dL Iron (45-180) ug/dL TIBC (265-497) ug/dL % Saturation (20-55) % Ferritin ng/mL Total Bilirubin 0.5 (0.2-1.3) mg/dL AST 29 (14-36) U/L ALT 25 (7-56) U/L Alkaline Phosphatase 129 H (38-126) U/L Troponin I 0.01 ng/mL NT-Pro-B Natriuret Pep 432 (0-450) pg/mL Total Protein 8.0 (5.8-8.3) g/dL Albumin 4.5 (3.0-4.8) g/dL Globulin 3.5 gm/dL Albumin/Globulin Ratio 1.3 (1.1-1.8) Triglycerides (35-160) mg/dL Cholesterol (130-200) mg/dL LDL Cholesterol Direct (0-129) mg/dL HDL Cholesterol (29-60) mg/dL Vitamin B12 (239-931) pg/mL Folate ng/mL Venous Blood Potassium 3.6 (3.6-5.2) mmol/L Urine Color Yellow (YELLOW) Urine Appearance Clear (CLEAR) Urine pH 6.0 (4.7-8.0) Ur Specific [place] 1.020 (1.005-1.035) Urine Protein Negative (<30 mg/dL) mg/dL Urine Glucose (UA) >=1000 (NEGATIVE) mg/dL Urine Ketones Negative (NEGATIVE) mg/dL Urine Blood Negative (NEGATIVE) Urine Nitrate Negative (NEGATIVE) Urine Bilirubin Negative (NEGATIVE) Urine Urobilinogen 0.2 (<1 E.U./dL) E.U./dL Ur Leukocyte Esterase Small H (NEGATIVE) Nicole/uL Urine RBC 1 - 3 H (0-2) /hpf Urine WBC 10 - 15 H (0-6) /hpf Ur Epithelial Cells 1 - 3 (0-5) /hpf Urine Bacteria Few (NONE) /hpf Alcohol, Quantitative (0-10) mg/dL B-Hydroxybutyrate (0.02-0.27) mM RPR (NONREACTIVE) Laboratory Results - last 24 hr 03/23/18 03/23/18 03/23/18 18:15 19:15 19:15 WBC RBC Hgb Hct MCV MCH MCHC RDW Plt Count MPV Gran % Lymph % (Auto) Sanders % (Auto) Eos % (Auto) Baso % (Auto) Gran # Lymph # (Auto) [place] # (Auto) Eos # (Auto) Baso # (Auto) pO2 95 H VBG pH 7.35 VBG pCO2 37.0 L VBG HCO3 20.4 L VBG Total CO2 21.5 L VBG O2 Sat (Calc) 98.9 H VBG Base Excess -4.7 L VBG Potassium 3.6 Sodium 135.0 134 Chloride 95.0 L 97 L Glucose 581 H* Lactate 6.0 H* FiO2 21.0 Potassium 3.7 Carbon Dioxide 19 L Anion Gap 22 H BUN 26 H Creatinine 1.1 Est GFR ( Amer) > 60 Est GFR (Non-Af Amer) 50 POC Glucose (mg/dL) Random Glucose 549 H* Hemoglobin A1c Lactic Acid Calcium 9.6 Phosphorus 3.3 Magnesium 1.6 L Iron TIBC % Saturation Ferritin Total Bilirubin 0.5 AST 29 ALT 25 Alkaline Phosphatase 129 H Troponin I 0.01 NT-Pro-B Natriuret Pep 432 Total Protein 8.0 Albumin 4.5 Globulin 3.5 Albumin/Globulin Ratio 1.3 Triglycerides Cholesterol LDL Cholesterol Direct HDL Cholesterol Vitamin B12 Folate Venous Blood Potassium 3.6 Urine Color Yellow Urine Appearance Clear Urine pH 6.0 Ur Specific [place] 1.020 Urine Protein Negative Urine Glucose (UA) >=1000 Urine Ketones Negative Urine Blood Negative Urine Nitrate Negative Urine Bilirubin Negative Urine Urobilinogen 0.2 Ur Leukocyte Esterase Small H Urine RBC 1 - 3 H Urine WBC 10 - 15 H Ur Epithelial Cells 1 - 3 Urine Bacteria Few Alcohol, Quantitative B-Hydroxybutyrate RPR 03/23/18 03/23/18 03/23/18 19:15 19:15 19:15 WBC 9.7 RBC 3.82 Hgb 11.8 L Hct 34.7 L MCV 90.8 MCH 30.9 MCHC 34.0 RDW 12.5 Plt Count 269 MPV 9.8 Gran % 47.7 L Lymph % (Auto) 44.9 H [place] % (Auto) 4.2 Eos % (Auto) 2.9 Baso % (Auto) 0.3 Gran # 4.61 Lymph # (Auto) 4.4 H [place] # (Auto) 0.4 Eos # (Auto) 0.3 Baso # (Auto) 0.03 pO2 VBG pH VBG pCO2 VBG HCO3 VBG Total CO2 VBG O2 Sat (Calc) VBG Base Excess VBG Potassium Sodium Chloride Glucose Lactate FiO2 Potassium Carbon Dioxide Anion Gap BUN Creatinine Est GFR ( Amer) Est GFR (Non-Af Amer) POC Glucose (mg/dL) Random Glucose Hemoglobin A1c Lactic Acid Calcium Phosphorus Magnesium Iron TIBC % Saturation Ferritin 68.7 Total Bilirubin AST ALT Alkaline Phosphatase Troponin I NT-Pro-B Natriuret Pep Total Protein Albumin Globulin Albumin/Globulin Ratio Triglycerides Cholesterol LDL Cholesterol Direct HDL Cholesterol Vitamin B12 478 Folate 8.7 Venous Blood Potassium Urine Color Urine Appearance Urine pH Ur Specific [place] Urine Protein Urine Glucose (UA) Urine Ketones Urine Blood Urine Nitrate Urine Bilirubin Urine Urobilinogen Ur Leukocyte Esterase Urine RBC Urine WBC Ur Epithelial Cells Urine Bacteria Alcohol, Quantitative B-Hydroxybutyrate 0.07 RPR 03/23/18 03/23/18 03/24/18 21:04 21:55 00:05 WBC RBC Hgb Hct MCV MCH MCHC RDW Plt Count MPV Gran % Lymph % (Auto) [place] % (Auto) Eos % (Auto) Baso % (Auto) Gran # Lymph # (Auto) Sanders # (Auto) Eos # (Auto) Baso # (Auto) pO2 VBG pH VBG pCO2 VBG HCO3 VBG Total CO2 VBG O2 Sat (Calc) VBG Base Excess VBG Potassium Sodium Chloride Glucose Lactate FiO2 Potassium Carbon Dioxide Anion Gap BUN Creatinine Est GFR ( Amer) Est GFR (Non-Af Amer) POC Glucose (mg/dL) 391 H 264 H Random Glucose Hemoglobin A1c Lactic Acid Calcium Phosphorus Magnesium Iron 43 L TIBC 308 % Saturation 14 L Ferritin Total Bilirubin AST ALT Alkaline Phosphatase Troponin I NT-Pro-B Natriuret Pep Total Protein Albumin Globulin Albumin/Globulin Ratio Triglycerides Cholesterol LDL Cholesterol Direct HDL Cholesterol Vitamin B12 Folate Venous Blood Potassium Urine Color Urine Appearance Urine pH Ur Specific [place] Urine Protein Urine Glucose (UA) Urine Ketones Urine Blood Urine Nitrate Urine Bilirubin Urine Urobilinogen Ur Leukocyte Esterase Urine RBC Urine WBC Ur Epithelial Cells Urine Bacteria Alcohol, Quantitative B-Hydroxybutyrate RPR 03/24/18 03/24/18 03/24/18 00:05 00:05 04:35 WBC RBC Hgb Hct MCV MCH MCHC RDW Plt Count MPV Gran % Lymph % (Auto) [place] % (Auto) Eos % (Auto) Baso % (Auto) Gran # Lymph # (Auto) [place] # (Auto) Eos # (Auto) Baso # (Auto) pO2 50 VBG pH 7.38 VBG pCO2 44.0 VBG HCO3 26.0 VBG Total CO2 27.4 VBG O2 Sat (Calc) 87.2 H VBG Base Excess 0.5 VBG Potassium 3.1 L Sodium 141.0 140 Chloride 107.0 106 Glucose 161 H Lactate 1.4 FiO2 21.0 Potassium 3.1 L Carbon Dioxide 26 Anion Gap 10 BUN 20 Creatinine 0.9 Est GFR ( Amer) > 60 Est GFR (Non-Af Amer) > 60 POC Glucose (mg/dL) 159 H Random Glucose 156 H Hemoglobin A1c Lactic Acid Calcium 8.6 Phosphorus Magnesium Iron TIBC % Saturation Ferritin Total Bilirubin AST ALT Alkaline Phosphatase Troponin I 0.02 D NT-Pro-B Natriuret Pep Total Protein Albumin Globulin Albumin/Globulin Ratio Triglycerides Cholesterol LDL Cholesterol Direct HDL Cholesterol Vitamin B12 Folate Venous Blood Potassium 3.1 L Urine Color Urine Appearance Urine pH Ur Specific [place] Urine Protein Urine Glucose (UA) Urine Ketones Urine Blood Urine Nitrate Urine Bilirubin Urine Urobilinogen Ur Leukocyte Esterase Urine RBC Urine WBC Ur Epithelial Cells Urine Bacteria Alcohol, Quantitative B-Hydroxybutyrate RPR 03/24/18 03/24/18 03/24/18 06:00 06:00 06:00 WBC 7.9 RBC 3.98 Hgb 12.3 Hct 35.9 L MCV 90.2 MCH 30.9 MCHC 34.3 RDW 12.5 Plt Count 276 MPV 9.7 Gran % 47.5 L Lymph % (Auto) 41.3 H [place] % (Auto) 6.8 H Eos % (Auto) 3.9 Baso % (Auto) 0.5 Gran # 3.77 Lymph # (Auto) 3.3 [place] # (Auto) 0.5 Eos # (Auto) 0.3 Baso # (Auto) 0.04 pO2 VBG pH VBG pCO2 VBG HCO3 VBG Total CO2 VBG O2 Sat (Calc) VBG Base Excess VBG Potassium Sodium 141 Chloride 108 H Glucose Lactate FiO2 Potassium 4.2 Carbon Dioxide 25 Anion Gap 12 BUN 15 Creatinine 0.8 Est GFR ( Amer) > 60 Est GFR (Non-Af Amer) > 60 POC Glucose (mg/dL) Random Glucose 216 H Hemoglobin A1c 13.3 H Lactic Acid Calcium 8.5 Phosphorus Magnesium Iron TIBC % Saturation Ferritin Total Bilirubin 0.7 AST 28 ALT 28 Alkaline Phosphatase 115 Troponin I 0.02 NT-Pro-B Natriuret Pep Total Protein 7.5 Albumin 3.9 Globulin 3.5 Albumin/Globulin Ratio 1.1 Triglycerides 104 Cholesterol 284 H LDL Cholesterol Direct 172 H HDL Cholesterol 65 H Vitamin B12 Folate Venous Blood Potassium Urine Color Urine Appearance Urine pH Ur Specific [place] Urine Protein Urine Glucose (UA) Urine Ketones Urine Blood Urine Nitrate Urine Bilirubin Urine Urobilinogen Ur Leukocyte Esterase Urine RBC Urine WBC Ur Epithelial Cells Urine Bacteria Alcohol, Quantitative B-Hydroxybutyrate RPR 03/24/18 03/24/18 03/24/18 06:00 07:25 07:30 WBC RBC Hgb Hct MCV MCH MCHC RDW Plt Count MPV Gran % Lymph % (Auto) Sanders % (Auto) Eos % (Auto) Baso % (Auto) Gran # Lymph # (Auto) Sanders # (Auto) Eos # (Auto) Baso # (Auto) pO2 VBG pH VBG pCO2 VBG HCO3 VBG Total CO2 VBG O2 Sat (Calc) VBG Base Excess VBG Potassium Sodium Chloride Glucose Lactate FiO2 Potassium Carbon Dioxide Anion Gap BUN Creatinine Est GFR ( Amer) Est GFR (Non-Af Amer) POC Glucose (mg/dL) 247 H Random Glucose Hemoglobin A1c Lactic Acid 2.4 H Calcium Phosphorus Magnesium 2.0 Iron TIBC % Saturation Ferritin Total Bilirubin AST ALT Alkaline Phosphatase Troponin I NT-Pro-B Natriuret Pep Total Protein Albumin Globulin Albumin/Globulin Ratio Triglycerides Cholesterol LDL Cholesterol Direct HDL Cholesterol Vitamin B12 Folate Venous Blood Potassium Urine Color Urine Appearance Urine pH Ur Specific [place] Urine Protein Urine Glucose (UA) Urine Ketones Urine Blood Urine Nitrate Urine Bilirubin Urine Urobilinogen Ur Leukocyte Esterase Urine RBC Urine WBC Ur Epithelial Cells Urine Bacteria Alcohol, Quantitative B-Hydroxybutyrate RPR 03/24/18 03/24/18 03/24/18 10:30 10:30 11:13 WBC RBC Hgb Hct MCV MCH MCHC RDW Plt Count MPV Gran % Lymph % (Auto) Sanders % (Auto) Eos % (Auto) Baso % (Auto) Gran # Lymph # (Auto) Sanders # (Auto) Eos # (Auto) Baso # (Auto) pO2 VBG pH VBG pCO2 VBG HCO3 VBG Total CO2 VBG O2 Sat (Calc) VBG Base Excess VBG Potassium Sodium Chloride Glucose Lactate FiO2 Potassium Carbon Dioxide Anion Gap BUN Creatinine Est GFR ( Amer) Est GFR (Non-Af Amer) POC Glucose (mg/dL) 347 H Random Glucose Hemoglobin A1c Lactic Acid Calcium Phosphorus Magnesium Iron TIBC % Saturation Ferritin Total Bilirubin AST ALT Alkaline Phosphatase Troponin I NT-Pro-B Natriuret Pep Total Protein Albumin Globulin Albumin/Globulin Ratio Triglycerides Cholesterol LDL Cholesterol Direct HDL Cholesterol Vitamin B12 Folate Venous Blood Potassium Urine Color Urine Appearance Urine pH Ur Specific [place] Urine Protein Urine Glucose (UA) Urine Ketones Urine Blood Urine Nitrate Urine Bilirubin Urine Urobilinogen Ur Leukocyte Esterase Urine RBC Urine WBC Ur Epithelial Cells Urine Bacteria Alcohol, Quantitative < 10 B-Hydroxybutyrate RPR Nonreactive Radiology Impressions: Radiology Impressions Chest X-Ray 03/23/18 19:00 IMPRESSION: No focal consolidation. Additional incidental findings as above. Head CT 03/23/18 19:00 IMPRESSION: No acute intracranial findings Abdomen Ultrasound 03/23/18 21:10 IMPRESSION: No cholelithiasis or biliary dilatation. No acute findings. Abdomen/Pelvis CT 03/24/18 13:02 IMPRESSION: No acute intra-abdominal findings EKG/Cardiology Studies: Cardiology / EKG Studies 03/23/18 19:03 ELECTROCARDIOGRAM Stat Comment: Reason For Exam: ams Critical Care Progress Note - Nutrition Nutrition: Nutrition Category Date Time Status Heart Healthy Diet [DIET] Diets 03/24/18 Breakfast Active Addendum Addendum: 03/24/18 17:58 ICU Attending Addendum Patient seen and examined. Case reviewed on round with housestaff. Agree with resident note above with the following additions/exceptions: 63 F with past medical history of CAD, MA s/p stent LCX in 2011, HTN, HLD, and DM2 who presented with AMS tx for HHS mentation improved rather quickly this is an odd presentation of HHS given the degree of AMS would check full toxicology stable for transfer out of ICU Rest of care as above Kylie Grajeda MD Pulmonary Critical Care and Sleep Medicine
--- NOTE | 2018-03-24 11:53 | RAD ---
HISTORY: chest tightness COMPARISON: None available. TECHNIQUE: Chest, one view. FINDINGS: LUNGS: No focal consolidation. Please note that chest x-ray has limited sensitivity for the detection of pulmonary masses. PLEURA: No significant pleural effusion identified. No definite pneumothorax . CARDIOVASCULAR: Dual lead left-sided pacemaker. Heart size appears top. Dense coronary artery calcification. Atherosclerotic calcification of the aorta. OSSEOUS STRUCTURES: No acute osseous abnormality identified. VISUALIZED UPPER ABDOMEN: Unremarkable. OTHER FINDINGS: None. IMPRESSION: No focal consolidation. Additional incidental findings as above.
[2018-03-24 12:22] LABS: FERRITIN 68.7 ng/mL
[2018-03-24 12:52] LABS: FOLATE 8.7 ng/mL
[2018-03-24] MEDS ORDERED: Barium Sulfate Susp 2.1% w/v, 2.0% w/w 450 mL Bottle PO ONE (13:21)
--- NOTE | 2018-03-24 15:50 | CON ---
DATE: 03/24/2018 ENDOCRINOLOGY CONSULTATION LOCATION: ICU 128, room 7. HISTORY OF PRESENT ILLNESS: This is a 63-year-old female with known history of type 2 diabetes and hypertension, presenting here with altered mental status and supervening marked hyperglycemic accelerations and is being referred now for diabetic evaluation and management. She was actually found wandering in the street, confused and disoriented with generalized body weakness as noted. PAST MEDICAL HISTORY As mentioned above, history of type 2 diabetes on a combination of glyburide and metformin, given as 5/500 b.i.d., history of hypertension and dyslipidemia, history of coronary artery disease with the previous coronary stent placement. FAMILY HISTORY: Positive for hypertension and heart disease. SOCIAL HISTORY: The patient has a supportive family. No known substance use. She has been quite depressed since the of her as noted. REVIEW OF SYSTEMS: Admits to generalized body weakness with progressive bouts of dizziness and lightheadedness and bifrontal headaches. Also admits to occasional bouts of visual blurring. No chest pains or palpitations, but admits to progressive shortness of breath, especially on exertion. Her oral intake has been variable with nausea, dyspepsia, and episodic vomiting episodes. Also admits to marked polyuria, nocturia, and polydipsia. PHYSICAL EXAMINATION: GENERAL: This is an overweight female in no apparent distress. VITAL SIGNS: With a blood pressure of 150/90, pulse of 100 beats per minute and regular, temperature 98, respirations 20, height is 5 feet 2 inches, and weight is 181 pounds. HEENT: Head: Normocephalic. Eyes: Anicteric with pink conjunctivae. Fundoscopy not possible at this time. Ears, nose, and throat, otherwise normal. NECK: Supple. Thyroid gland is normal size. No carotid bruits or cervical adenopathy. CARDIOPULMONARY: Some adynamic precordium. S1, S2 are rapid and regular. LUNGS: Clear to auscultation. ABDOMEN: Flat, soft with positive bowel sounds. EXTREMITIES: No peripheral edema. Pulses are +2 bilaterally. LABORATORY DATA: Chemistries today showed a BUN of 20, sodium 140, potassium 3.1, chloride 106, CO2 26, glucose 156, and creatinine of 0.9. The initial glucose levels were over 500 as noted. ASSESSMENT: This is a 63-year-old female with uncontrolled and decompensated type 2 insulin-requiring diabetes, presenting here with hyperosmolar hyperglycemic state and dehydration and there is a very strong possibility of recent drug omission as noted. PLAN OF MANAGEMENT: The patient has been actually taken off the insulin drip infusion overnight as noted. We will; however, start her back on her oral hypoglycemic therapy as indicated with a low-dose correction scale using regular insulin as ordered. We will continue the vigorous IV hydration and obtain serial chemistries and supplement accordingly as needed. This will replenish the lost fluids and electrolytes from the increased osmotic diuresis thereof. We will obtain a hemoglobin A1c to confirm her prior glycemic control and baseline thyroid function studies will be ordered. We will follow. Mireya Lopez MD
--- NOTE | 2018-03-24 17:09 | CT ---
Date of service: 03/24/2018 PROCEDURE: CT Abdomen and Pelvis without intravenous contrast HISTORY: abdominal tenderness COMPARISON: None. TECHNIQUE: Without contrast.. Contrast dose: Radiation dose: Total exam DLP = 269.48 mGy-cm. This CT exam was performed using one or more of the following dose reduction techniques: Automated exposure control, adjustment of the mA and/or kV according to patient size, and/or use of iterative reconstruction technique. FINDINGS: LOWER THORAX: Unremarkable. Aortic and coronary artery calcification LIVER: Unremarkable. No gross lesion or ductal dilatation. GALLBLADDER AND BILE DUCTS: Unremarkable. PANCREAS: Unremarkable. No gross lesion or ductal dilatation. SPLEEN: Unremarkable. ADRENALS: Unremarkable. No mass. KIDNEYS AND URETERS: Unremarkable. No hydronephrosis. No solid mass. VASCULATURE: Unremarkable. No aortic aneurysm. No aortic atherosclerotic calcification or mural plaque present. BOWEL: Unremarkable. No obstruction. No gross mural thickening. APPENDIX: Unremarkable. Normal appendix. PERITONEUM: Unremarkable. No free fluid. No free air. LYMPH NODES: Unremarkable. No enlarged lymph nodes. BLADDER: Unremarkable. REPRODUCTIVE: Unremarkable. BONES: No acute fracture. OTHER FINDINGS: None. IMPRESSION: No acute intra-abdominal findings
--- NOTE | 2018-03-24 18:32 | CARD ---
APPROVED REPORT Date of service: 03/23/2018 EKG Measurement Heart [id number] <Conclusion> Normal sinus rhythm Possible Anterior infarct, age undetermined Abnormal ECG
[2018-03-25] MEDS: Albuterol-Ipratrop 3 mg / 0.5 (3 ml) UD IH SCH ×4 (01:09→20:03)
[2018-03-25 07:23] LABS: BASO # 0.02 K/mm3 (0.0-2.0); BASO % 0.3 % (0.0-3.0); EOS # 0.4 (0.0-0.7); EOS % 4.9 % (1.5-5.0); GRAN # 3.76 (1.4-6.5); HEMOGLOBIN 10.7 g/dL (12.0-16.0); LYMPH # 2.7 (1.2-3.4); LYMPH % 36.6 % (22.0-35.0); MEAN CELL VOLUME 91.1 fl (80.0-105.0); MEAN CORPUSCULAR HEMOGLOBIN 30.7 pg (25.0-35.0); MEAN CORPUSCULAR HGB CONC 33.6 g/dl (31.0-37.0); MEAN PLATELET VOLUME 9.9 fl (7.0-11.0); MONO # 0.5 (0.1-0.6); MONO % 7.2 % (1.0-6.0); RBC 3.49 10^6/uL (3.5-6.1); RED CELL DISTRIBUTION WIDTH 12.7 % (11.5-14.5); WHITE BLOOD COUNT 7.4 10^3/uL (4.5-11.0)
[2018-03-25] MEDS: Sodium Chloride 0.9% 1,000 ML IV SCH (07:30)
[2018-03-25 07:50] LABS: ALB/GLOB RATIO 1.1 (1.1-1.8); ALBUMIN 3.4 g/dL (3.0-4.8); ALT/SGPT 26 U/L (7-56); AST/SGOT 25 U/L (14-36); BLOOD UREA NITROGEN 9 mg/dL (7-21); CALCIUM 8.8 mg/dL (8.4-10.5); GFR NON-AFRICAN AMERICAN > 60
[2018-03-25] MEDS: Pantoprazole 40 mg EC Tab PO SCH (08:17)
[2018-03-25] MEDS: Insulin Reg-LOW-Coverage SC SCH ×2 (08:18→13:50)
[2018-03-25] MEDS: Budesonide 0.25 mg/2 ml Inhal Susp UD IH SCH ×2 (08:19→20:03)
--- NOTE | 2018-03-25 13:03 | CP.PCM.PN ---
<Clifton Flores - Last Filed: 03/25/18 16:00> Subjective - Date & Time of Evaluation Date of Evaluation: 03/25/18 Time of Evaluation: 11:12 - Subjective Subjective: Clifton Flores, PGY1 Hospital Progress Note Patient seen and examined at bedside this morning. No acute events overnight. Mentation is improving but still appears confused. Will reach out to family for patient's baseline mentation. Brain MRI pending. Confirmed with patient's pharmacy her home medications which include zoloft 50mg, levemir 30 units HS and humalog 10 units AC. Offers no complaints today. Spoke with son, Efe, who stated patient has dementia and has similar problems of getting lost in the past. Per son, patient does not want fci and plan is to find adult daycare center. Efe does not live in the area but states his sister will try to come the hospital tomorrow afternoon to meet with the medical team as she works nights. Son states patient is on keppra for seizures which patient gets delivered in the mail. Keppra was not listed on the medications from patient's pharmacy. Objective - Vital Signs/Intake and Output Vital Signs (last 24 hours): Temp Pulse Resp BP Pulse Ox 98.2 F 74 18 150/72 97 03/25/18 06:00 03/25/18 10:01 03/25/18 06:00 03/25/18 10:01 03/25/18 06:00 Intake and Output: 03/25/18 03/25/18 06:59 18:59 Intake Total 120 Output Total 1600 Balance -1480 - Medications Medications: Current Medications Albuterol/Ipratropium (Duoneb 3 Mg/0.5 Mg (3 Ml) Ud) 3 ml IH [id number] [facility] Last Admin: 03/25/18 08:19 Dose: 3 ml Aspirin (Ecotrin) 81 mg PO DAILY [facility] Last Admin: 03/25/18 10:00 Dose: 81 mg Atorvastatin Calcium (Lipitor) 20 mg PO DIN [facility] Last Admin: 03/24/18 16:17 Dose: 20 mg Budesonide (Pulmicort Respules) 0.25 mg IH [id number] [facility] Last Admin: 03/25/18 08:19 Dose: 0.25 mg Clopidogrel Bisulfate (Plavix) 75 mg PO DAILY [facility] Last Admin: 03/25/18 10:00 Dose: 75 mg Dextrose (Dextrose 50% Inj) 0 ml IV STAT PRN; Protocol PRN Reason: Hypoglycemia Protocol Hydrochlorothiazide (Hydrodiuril) 25 mg PO DAILY [facility] Last Admin: 03/25/18 10:01 Dose: 25 mg Sodium Chloride (Sodium Chloride 0.9%) 1,000 mls @ 125 mls/hr IV .Q8H [facility] Last Admin: 03/25/18 07:30 Dose: 125 mls/hr Dextrose (Dextrose 5% In Water 1000 Ml) 1,000 mls @ 0 mls/hr IV .Q0M PRN; Protocol PRN Reason: Hypoglycemia Protocol Insulin Detemir (Levemir) 30 unit SC HS [facility] Insulin Human Lispro (Humalog) 10 units SC AC [facility] Insulin Human Regular (Humulin R Low) 0 units SC ACHS [facility]; Protocol Last Admin: 03/25/18 08:18 Dose: 3 unit Lisinopril (Zestril) 10 mg PO DAILY [facility] Last Admin: 03/25/18 10:00 Dose: 10 mg Metoprolol Tartrate (Lopressor) 50 mg PO DAILY [facility] Last Admin: 03/25/18 10:01 Dose: 50 mg Pantoprazole Sodium (Protonix Ec Tab) 40 mg PO ACB [facility] Last Admin: 03/25/18 08:17 Dose: 40 mg Sertraline HCl (Zoloft) 50 mg PO DAILY [facility] Trimethoprim/Sulfamethoxazole (Bactrim Ds Tab) 1 tab PO BID [facility]; Protocol - Labs Labs: 03/25/18 06:30 03/25/18 06:30 - Additional Findings Additional findings: - Constitutional Appears: Well, No Acute Distress, Confused - Head Exam Head Exam: ATRAUMATIC, NORMOCEPHALIC - Eye Exam Eye Exam: EOMI, Normal appearance, PERRL - ENT Exam ENT Exam: Mucous Membranes Moist - Respiratory Exam Respiratory Exam: NORMAL BREATHING PATTERN, CTA B/L, no respiratory distress or accessory muscle use Additional comments: - Cardiovascular Exam Cardiovascular Exam: regular rhyhtm, +S1, +S2 - GI/Abdominal Exam GI & Abdominal Exam: Normal Bowel Sounds, Soft, mild epigastric tenderness - Extremities Exam Extremities exam: Positive for: pedal pulses present. Negative for: pedal edema - Back Exam Back exam: absent: CVA tenderness (L), CVA tenderness (R) - Neurological Exam Neurological exam: Alert to person and place, not oriented to time. No motor/sensory deficits appreciated in upper or lower extremities B/L Additional comments: - Skin Skin Exam: Dry, Intact, Normal Color, Warm Assessment and Plan - Assessment and Plan (Free Text) Assessment: 63F w/ ID (s/p LCX angioplasty w/ balloon 2011) DM, CAD, HTN, HLD who was brought in by EMS on 03/22 w/ c/o of SOB; per ED documentation, patient was brought in by EMS after she was found wandering the streets; Upon arrival to ED she was found to have a blood glucose of >500. Admitted for management of HHS and AMS. Plan: AMS - likely 2/2 dementia -per son Efe, patient has dementia and has had similar problems in past of getting lost. She was hospitalized in [facility] [place] per son for getting lost -unlikely 2/2 to HHS as glucose resolved without insulin drip, and GAP of 18 closed quickly -consider superimposing depression from of -continue home zoloft -folate, B12, RPR are negative -CTAP negative -Head CT negative for acute pathology Hyperglycemia -called [facility] in [facility] -re-started on home meds: levemir 30 units HS, humalog 10 units AC -insulin sliding scale -will monitor -A1c is 13.3 suggesting medical non compliance Hx of Depression -patient sad and tearful -restarted on home zoloft -lives alone at home in [place], performs ADL's independently per patient -Daughter lives in [place] ?Seizure history -started on keppra 500mg BID -per son Efe, patient is taking on keppra delivered by mail at home for seizure, which is not reported in the patient's pharmacy UTI -patient is asymptomatic -Urine culture growing gram negative jose antonio, U/A shows small leuk esterase -bactrim day 1 out of 5 Hx of CAD -continue ASA, plavix Hx of HTN/HLD -HCTZ, lisinopril, lopressor -lipitor PPX -pepcid, heparin Patient seen and case discussed with attending, Dr. Ashraf <Gloria Ashraf - Last Filed: 03/28/18 17:53> Objective - Vital Signs/Intake and Output Vital Signs (last 24 hours): Temp Pulse Resp BP Pulse Ox 98.4 F 77 20 116/79 100 03/28/18 14:00 03/28/18 14:00 03/28/18 14:00 03/28/18 14:00 03/28/18 14:00 - Medications Medications: Current Medications Aspirin (Ecotrin) 81 mg PO DAILY [facility] Last Admin: 03/28/18 09:46 Dose: 81 mg Atorvastatin Calcium (Lipitor) 20 mg PO DIN [facility] Last Admin: 03/27/18 17:57 Dose: 20 mg Budesonide (Pulmicort Respules) 0.25 mg IH [id number] [facility] Last Admin: 03/28/18 07:14 Dose: 0.25 mg Clopidogrel Bisulfate (Plavix) 75 mg PO DAILY [facility] Last Admin: 03/28/18 09:46 Dose: 75 mg Dextrose (Dextrose 50% Inj) 0 ml IV STAT PRN; Protocol PRN Reason: Hypoglycemia Protocol Famotidine (Pepcid) 20 mg PO HS [facility] Last Admin: 03/27/18 22:09 Dose: 20 mg Heparin Sodium (Porcine) (Heparin) 5,000 units SC Q8 [facility]; Protocol Last Admin: 03/28/18 15:44 Dose: 5,000 units Hydrochlorothiazide (Hydrodiuril) 25 mg PO DAILY [facility] Last Admin: 03/28/18 09:46 Dose: 25 mg Dextrose (Dextrose 5% In Water 1000 Ml) 1,000 mls @ 0 mls/hr IV .Q0M PRN; Protocol PRN Reason: Hypoglycemia Protocol Insulin Detemir (Levemir) 30 unit SC HS [facility] Last Admin: 03/27/18 22:08 Dose: 30 units Insulin Human Lispro (Humalog Low) 0 units SC ACHS [facility]; Protocol Last Admin: 03/28/18 12:34 Dose: Not Given Insulin Human Lispro (Humalog) 12 units SC AC [facility] Levetiracetam (Keppra) 500 mg PO Q12 [facility] Last Admin: 03/28/18 09:47 Dose: 500 mg Lisinopril (Zestril) 10 mg PO DAILY [facility] Last Admin: 03/28/18 09:47 Dose: 10 mg Metoprolol Tartrate (Lopressor) 50 mg PO DAILY [facility] Last Admin: 03/28/18 09:47 Dose: 50 mg Pantoprazole Sodium (Protonix Ec Tab) 40 mg PO ACB [facility] Last Admin: 03/28/18 09:47 Dose: 40 mg Quetiapine Fumarate (Seroquel) 12.5 mg PO HS [facility]; Protocol Last Admin: 03/27/18 22:10 Dose: 12.5 mg Sertraline HCl (Zoloft) 50 mg PO DAILY [facility] Last Admin: 03/28/18 09:47 Dose: 50 mg Trimethoprim/Sulfamethoxazole (Bactrim Ds Tab) 1 tab PO BID [facility]; Protocol Last Admin: 03/28/18 09:46 Dose: 1 tab - Labs Labs: 03/28/18 07:00 03/28/18 07:00 Attending/Attestation - Attestation I have personally seen and examined this patient.: Yes I have fully participated in the care of the patient.: Yes I have reviewed all pertinent clinical information, including history, physical exam and plan: Yes Notes (Text): 03/28/18 17:53 Medical record note made by the resident after discussion with my direction and input after the patient was personally seen and examined by me. I have reviewed the chart and agree that the record accurately reflects by personal performance of the history, physical exam, data review, and medical decision-making, in the course for the patient. I have also personally directed the plan of care
[2018-03-25] MEDS: Tmp-Smz 800 mg-160 mg DS Tab PO SCH (18:00)
[2018-03-25] MEDS: Insulin Lispro (humaLOG) LOW Coverage SC SCH ×2 (18:05→22:12)
[2018-03-25] MEDS: Insulin Lispro 1 UNITS/0.01 ML SC SCH (18:06)
--- NOTE | 2018-03-25 19:32 | PN ---
DATE: 03/25/2018 ENDOCRINOLOGY FOLLOWUP NOTE LOCATION: In room 571. SUBJECTIVE: This is a 63-year-old female with recent uncontrolled type 2 insulin-requiring diabetes presenting here with marked hyperglycemic accelerations and started on insulin therapy as given and is now being followed closely for metabolic management. Her glycemic levels are still fluctuating as noted overnight and the glucose values have ranged from 292-348 mg/dL. Her latest chemistry showed a BUN of 9, sodium 138, potassium 4.2, chloride 108, CO2 of 24, glucose 296, and creatinine 0.9. So, at this time, we will modify once again her basal and bolus insulin regimen and increase the basal insulin with Levemir to be given as 30 units subcutaneously at bedtime daily as given. We will also continue the modified Humalog or prandial insulin given as Humalog at 10 units t.i.d. before meals as ordered. We will continue the low-dose correction scale using Humalog insulin to obviate hypoglycemia and detailed orders have been given. We will also continue the IV hydration as given and we will obtain serial chemistries and supplement accordingly as needed. We will also initiate diabetic education to include insulin self-administration with home glucose monitoring techniques as ordered. The patient actually has not been on any kind of insulin therapy prior to this admission. We will follow and advise accordingly. Mireya Lopez MD
[2018-03-25] MEDS: Insulin Detemir 100 units/ml Vial (Levemir) SC SCH (22:19)
[2018-03-26] MEDS: Sodium Chloride 0.9% 1,000 ML IV SCH ×2 (00:51→05:34)
[2018-03-26] MEDS: Albuterol-Ipratrop 3 mg / 0.5 (3 ml) UD IH SCH ×4 (01:29→19:40)
[2018-03-26 07:23] LABS: BASO # 0.02 K/mm3 (0.0-2.0); BASO % 0.3 % (0.0-3.0); EOS # 0.4 (0.0-0.7); EOS % 5.5 % (1.5-5.0); GRAN # 3.78 (1.4-6.5); HEMOGLOBIN 10.4 g/dL (12.0-16.0); LYMPH # 3.1 (1.2-3.4); LYMPH % 38.9 % (22.0-35.0); MEAN CELL VOLUME 90.6 fl (80.0-105.0); MEAN CORPUSCULAR HEMOGLOBIN 30.4 pg (25.0-35.0); MEAN CORPUSCULAR HGB CONC 33.5 g/dl (31.0-37.0); MEAN PLATELET VOLUME 9.7 fl (7.0-11.0); MONO # 0.6 (0.1-0.6); MONO % 7.3 % (1.0-6.0); RBC 3.42 10^6/uL (3.5-6.1); RED CELL DISTRIBUTION WIDTH 12.9 % (11.5-14.5); WHITE BLOOD COUNT 7.9 10^3/uL (4.5-11.0)
[2018-03-26] MEDS: Budesonide 0.25 mg/2 ml Inhal Susp UD IH SCH ×2 (07:32→19:41)
[2018-03-26 07:44] LABS: ALB/GLOB RATIO 1.2 (1.1-1.8); ALBUMIN 3.7 g/dL (3.0-4.8); ALT/SGPT 23 U/L (7-56); AST/SGOT 25 U/L (14-36); BLOOD UREA NITROGEN 11 mg/dL (7-21); CALCIUM 9.2 mg/dL (8.4-10.5); GFR NON-AFRICAN AMERICAN 50
[2018-03-26] MEDS: Insulin Lispro 1 UNITS/0.01 ML SC SCH ×2 (08:30→12:03)
[2018-03-26] MEDS: Insulin Lispro (humaLOG) LOW Coverage SC SCH (08:31)
[2018-03-26] MEDS: Pantoprazole 40 mg EC Tab PO SCH (10:58)
[2018-03-26] MEDS: Tmp-Smz 800 mg-160 mg DS Tab PO SCH ×2 (10:58→17:03)
--- NOTE | 2018-03-26 12:00 | CP.PCM.PN ---
<Clifton Flores - Last Filed: 03/26/18 11:54> Subjective - Date & Time of Evaluation Date of Evaluation: 03/26/18 Time of Evaluation: 11:00 - Subjective Subjective: Clifton Flores PGY1 Hospital Progress Note Patient seen and examined at bedside this AM. Eating and sleeping well. States she wants to go home. Working with case management on safe discharge. Patient has dementia and currently lives alone. Offers no complaints at this time. Objective - Vital Signs/Intake and Output Vital Signs (last 24 hours): Temp Pulse Resp BP Pulse Ox 98.4 F 82 18 130/69 96 03/26/18 06:00 03/26/18 06:00 03/26/18 06:00 03/26/18 06:00 03/26/18 06:00 Intake and Output: 03/26/18 03/26/18 06:59 18:59 Intake Total 2040 Output Total 800 Balance 1240 - Medications Medications: Current Medications Albuterol/Ipratropium (Duoneb 3 Mg/0.5 Mg (3 Ml) Ud) 3 ml IH [id number] [facility] Last Admin: 03/26/18 07:30 Dose: 3 ml Aspirin (Ecotrin) 81 mg PO DAILY [facility] Last Admin: 03/26/18 10:58 Dose: 81 mg Atorvastatin Calcium (Lipitor) 20 mg PO DIN [facility] Last Admin: 03/25/18 18:00 Dose: 20 mg Budesonide (Pulmicort Respules) 0.25 mg IH [id number] [facility] Last Admin: 03/26/18 07:32 Dose: 0.25 mg Clopidogrel Bisulfate (Plavix) 75 mg PO DAILY [facility] Last Admin: 03/26/18 10:58 Dose: 75 mg Dextrose (Dextrose 50% Inj) 0 ml IV STAT PRN; Protocol PRN Reason: Hypoglycemia Protocol Famotidine (Pepcid) 20 mg PO HS [facility] Last Admin: 03/25/18 21:28 Dose: 20 mg Heparin Sodium (Porcine) (Heparin) 5,000 units SC Q8 [facility]; Protocol Last Admin: 03/26/18 05:29 Dose: 5,000 units Hydrochlorothiazide (Hydrodiuril) 25 mg PO DAILY [facility] Last Admin: 03/26/18 10:58 Dose: 25 mg Sodium Chloride (Sodium Chloride 0.9%) 1,000 mls @ 125 mls/hr IV .Q8H [facility] Last Admin: 03/26/18 05:34 Dose: 125 mls/hr Dextrose (Dextrose 5% In Water 1000 Ml) 1,000 mls @ 0 mls/hr IV .Q0M PRN; Protocol PRN Reason: Hypoglycemia Protocol Insulin Detemir (Levemir) 30 unit SC HS [facility] Last Admin: 03/25/18 22:19 Dose: 30 applic Insulin Human Lispro (Humalog) 10 units SC AC [facility] Last Admin: 03/26/18 08:30 Dose: 10 unit Insulin Human Lispro (Humalog Low) 0 units SC ACHS [facility]; Protocol Last Admin: 03/26/18 08:31 Dose: Not Given Levetiracetam (Keppra) 500 mg PO Q12 [facility] Last Admin: 03/26/18 10:58 Dose: 500 mg Lisinopril (Zestril) 10 mg PO DAILY [facility] Last Admin: 03/26/18 10:58 Dose: 10 mg Metoprolol Tartrate (Lopressor) 50 mg PO DAILY [facility] Last Admin: 03/26/18 10:59 Dose: 50 mg Pantoprazole Sodium (Protonix Ec Tab) 40 mg PO ACB [facility] Last Admin: 03/26/18 10:58 Dose: 40 mg Sertraline HCl (Zoloft) 50 mg PO DAILY [facility] Last Admin: 03/26/18 10:58 Dose: 50 mg Trimethoprim/Sulfamethoxazole (Bactrim Ds Tab) 1 tab PO BID [facility]; Protocol Last Admin: 03/26/18 10:58 Dose: 1 tab - Labs Labs: 03/26/18 06:45 03/26/18 06:45 - Additional Findings Additional findings: - Constitutional Appears: Well, No Acute Distress, Confused - Head Exam Head Exam: ATRAUMATIC, NORMOCEPHALIC - Eye Exam Eye Exam: EOMI, Normal appearance, PERRL - ENT Exam ENT Exam: Mucous Membranes Moist - Respiratory Exam Respiratory Exam: NORMAL BREATHING PATTERN, CTA B/L, no respiratory distress or accessory muscle use Additional comments: - Cardiovascular Exam Cardiovascular Exam: regular rhyhtm, +S1, +S2 - GI/Abdominal Exam GI & Abdominal Exam: Normal Bowel Sounds, Soft, mild epigastric tenderness - Extremities Exam Extremities exam: Positive for: pedal pulses present. Negative for: pedal edema - Back Exam Back exam: absent: CVA tenderness (L), CVA tenderness (R) - Neurological Exam Neurological exam: Alert to person and place, not oriented to time. No motor/sensory deficits appreciated in upper or lower extremities B/L Additional comments: - Skin Skin Exam: Dry, Intact, Normal Color, Warm Assessment and Plan - Assessment and Plan (Free Text) Assessment: 63F w/ OH (s/p LCX angioplasty w/ balloon 2011) DM, CAD, HTN, HLD who was brought in by EMS on 03/22 w/ c/o of SOB; per ED documentation, patient was brought in by EMS after she was found wandering the streets; Upon arrival to ED she was found to have a blood glucose of >500. Admitted for management of AMS. Plan: AMS - likely 2/2 dementia -per son Efe, patient has dementia and has had similar problems in past of getting lost. She was [place] [facility] [place] per son for getting lost -working with case management for safe patient discharge -P.T. pending for ambulation -unlikely 2/2 to [facility] as glucose resolved without insulin drip, and GAP of 18 closed quickly -consider superimposing depression from of -continue home zoloft -folate, B12, RPR are negative -CTAP negative -Head CT negative for acute pathology Hyperglycemia -called [facility] in [facility] -re-started on home meds: levemir 30 units HS, humalog 10 units AC -may escalate coverage if glucose remains high, will monitor -insulin sliding scale -A1c is 13.3 suggesting medical non compliance Hx of Depression -patient sad and tearful -continue home zoloft -lives alone at home in [place], performs ADL's independently per patient -Daughter lives in [place] ?Seizure history -started on keppra 500mg BID -per son Efe, patient is taking on keppra delivered by mail at home for seizure, which is not reported in the patient's pharmacy UTI -patient is asymptomatic -Urine culture growing gram negative jose antonio, U/A shows small leuk esterase -bactrim day 2 out of 5 Hx of CAD -continue ASA, plavix Hx of HTN/HLD -HCTZ, lisinopril, lopressor -lipitor PPX -pepcid, heparin Patient seen and case discussed with attending, Dr. Ashraf <Gloria Ashraf - Last Filed: 03/28/18 17:52> Objective - Vital Signs/Intake and Output Vital Signs (last 24 hours): Temp Pulse Resp BP Pulse Ox 98.4 F 77 20 116/79 100 03/28/18 14:00 03/28/18 14:00 03/28/18 14:00 03/28/18 14:00 03/28/18 14:00 - Medications Medications: Current Medications Aspirin (Ecotrin) 81 mg PO DAILY [facility] Last Admin: 03/28/18 09:46 Dose: 81 mg Atorvastatin Calcium (Lipitor) 20 mg PO DIN [facility] Last Admin: 03/27/18 17:57 Dose: 20 mg Budesonide (Pulmicort Respules) 0.25 mg IH [id number] [facility] Last Admin: 03/28/18 07:14 Dose: 0.25 mg Clopidogrel Bisulfate (Plavix) 75 mg PO DAILY [facility] Last Admin: 03/28/18 09:46 Dose: 75 mg Dextrose (Dextrose 50% Inj) 0 ml IV STAT PRN; Protocol PRN Reason: Hypoglycemia Protocol Famotidine (Pepcid) 20 mg PO HS [facility] Last Admin: 03/27/18 22:09 Dose: 20 mg Heparin Sodium (Porcine) (Heparin) 5,000 units SC Q8 [facility]; Protocol Last Admin: 03/28/18 15:44 Dose: 5,000 units Hydrochlorothiazide (Hydrodiuril) 25 mg PO DAILY [facility] Last Admin: 03/28/18 09:46 Dose: 25 mg Dextrose (Dextrose 5% In Water 1000 Ml) 1,000 mls @ 0 mls/hr IV .Q0M PRN; Protocol PRN Reason: Hypoglycemia Protocol Insulin Detemir (Levemir) 30 unit SC HS [facility] Last Admin: 03/27/18 22:08 Dose: 30 units Insulin Human Lispro (Humalog Low) 0 units SC ACHS [facility]; Protocol Last Admin: 03/28/18 12:34 Dose: Not Given Insulin Human Lispro (Humalog) 12 units SC AC [facility] Levetiracetam (Keppra) 500 mg PO Q12 [facility] Last Admin: 03/28/18 09:47 Dose: 500 mg Lisinopril (Zestril) 10 mg PO DAILY [facility] Last Admin: 03/28/18 09:47 Dose: 10 mg Metoprolol Tartrate (Lopressor) 50 mg PO DAILY [facility] Last Admin: 03/28/18 09:47 Dose: 50 mg Pantoprazole Sodium (Protonix Ec Tab) 40 mg PO ACB [facility] Last Admin: 03/28/18 09:47 Dose: 40 mg Quetiapine Fumarate (Seroquel) 12.5 mg PO HS [facility]; Protocol Last Admin: 03/27/18 22:10 Dose: 12.5 mg Sertraline HCl (Zoloft) 50 mg PO DAILY [facility] Last Admin: 03/28/18 09:47 Dose: 50 mg Trimethoprim/Sulfamethoxazole (Bactrim Ds Tab) 1 tab PO BID [facility]; Protocol Last Admin: 03/28/18 09:46 Dose: 1 tab - Labs Labs: 03/28/18 07:00 03/28/18 07:00 Attending/Attestation - Attestation I have personally seen and examined this patient.: Yes I have fully participated in the care of the patient.: Yes I have reviewed all pertinent clinical information, including history, physical exam and plan: Yes Notes (Text): 03/28/18 17:52 Medical record note made by the resident after discussion with my direction and input after the patient was personally seen and examined by me. I have reviewed the chart and agree that the record accurately reflects by personal performance of the history, physical exam, data review, and medical decision-making, in the course for the patient. I have also personally directed the plan of care
--- NOTE | 2018-03-26 20:38 | CON ---
DATE OF CONSULTATION: 03/26/2018 HISTORY OF PRESENT ILLNESS: In short, the patient is a 63-year-old patient from [facility]. The patient has multiple medical issues including OR, diabetes, coronary artery disease, hypertension, dyslipidemia. The patient was admitted to the medical site for evaluation of altered mental status. The patient was found wandering in the community. Fingerstick was very elevated, more than 300, and the patient was found to have urinary tract infection. Psych consult was called for evaluation of depressive symptoms and altered mental status. The patient was seen and examined. The patient presented to be tearful, depressed, somewhat confused. The patient reported that her 3 years ago, but she still cannot get over it. The patient reported that she is constantly talking to him and at times the patient wished to be with him, but denied any intent or plan to kill herself. The patient reported that she has transient feeling of hopelessness and helplessness and the patient was very tearful during the interview. The patient reported that she is not able to sleep and that is why she is taking Ambien 25 mg at the nighttime. As per medical team, the patient also was on Zoloft. The patient reported that she has never been psychiatric admitted. She has never tried to kill herself in the past. The patient reported that she has four kids and they are supportive. The patient reported that her son brought her to the hospital. VITAL SIGNS: Reviewed. Temperature 98.4, pulse is 82, blood pressure 130/69, respirations 18, oxygen saturation is 96. MEDICATIONS: Reviewed. The patient is on DuoNeb, aspirin, Lipitor, Pulmicort, Plavix, dextrose, Pepcid, heparin, hydrochlorothiazide, Levemir, Humalog, Keppra, Zestril, Lopressor, Protonix. The patient was on Zoloft, sodium chloride, Bactrim. Microbiology showed urinary tract infection with E. coli. MENTAL STATUS EXAM: The patient presented somewhat confused, intermittent eye contact. The patient was not able to stay focused during the interview. Mood described as depressed. Affect was tearful. Thought process at times circumstantial and tangential. Thought content, the patient denied visual, auditory or tactile hallucinations, but the patient reported that she talked to her daily. Insight and judgment seems to be limited. Impulses are so far well controlled. IMPRESSION: The patient was admitted for delirium. Right now, the patient still has episodes of confusion, rule out major depressive disorder, rule out generalized anxiety disorder, rule out mood disorder due to general medical condition. PLAN: Continue current management. Continue current medication. The patient might benefit from psych admission. The patient seems to be confused in order to make that decision. I hope that the patient will be better from the mental standpoint and will be able to sign consent. We will see if the patient will be able to sign herself in or we will wait until tomorrow until the patient will be more alert and less confused. Thank you very much for letting me participate in the care of your patient. Should you have any questions, give me a call back. Virginia Rodriguez MD
[2018-03-26] MEDS: Insulin Detemir 100 units/ml Vial (Levemir) SC SCH (21:49)
[2018-03-27] MEDS: Albuterol-Ipratrop 3 mg / 0.5 (3 ml) UD IH SCH ×4 (01:40→19:42)
[2018-03-27] MEDS: Budesonide 0.25 mg/2 ml Inhal Susp UD IH SCH ×2 (07:25→19:42)
[2018-03-27 07:49] LABS: BASO # 0.03 K/mm3 (0.0-2.0); BASO % 0.4 % (0.0-3.0); EOS # 0.4 (0.0-0.7); EOS % 5.3 % (1.5-5.0); GRAN # 2.75 (1.4-6.5); GRAN % 38.3 % (50.0-68.0); HEMOGLOBIN 9.9 g/dL (12.0-16.0); LYMPH # 3.4 (1.2-3.4); LYMPH % 47.6 % (22.0-35.0); MEAN CELL VOLUME 91.4 fl (80.0-105.0); MEAN CORPUSCULAR HEMOGLOBIN 30.6 pg (25.0-35.0); MEAN CORPUSCULAR HGB CONC 33.4 g/dl (31.0-37.0); MEAN PLATELET VOLUME 9.7 fl (7.0-11.0); MONO # 0.6 (0.1-0.6); MONO % 8.4 % (1.0-6.0); RBC 3.24 10^6/uL (3.5-6.1); WHITE BLOOD COUNT 7.2 10^3/uL (4.5-11.0)
[2018-03-27 08:14] LABS: ALB/GLOB RATIO 1.2 (1.1-1.8); ALBUMIN 3.6 g/dL (3.0-4.8); CALCIUM 9.2 mg/dL (8.4-10.5)
[2018-03-27] MEDS: Insulin Lispro (humaLOG) LOW Coverage SC SCH ×4 (08:43→22:06)
[2018-03-27] MEDS: Insulin Lispro 1 UNITS/0.01 ML SC SCH ×3 (08:43→16:58)
[2018-03-27] MEDS: Pantoprazole 40 mg EC Tab PO SCH (08:44)
[2018-03-27] MEDS: Tmp-Smz 800 mg-160 mg DS Tab PO SCH ×2 (09:36→17:57)
--- NOTE | 2018-03-27 11:38 | CON ---
DATE: 03/27/2018 HISTORY OF PRESENT ILLNESS: The patient is a 63-year-old female patient from [facility] who is psychiatry is seeing on the medical side for altered mental status as well as depression. I reviewed Dr. Rodriguez's note from 03/26/2018 which indicated the patient appeared to be confused and depressed and reported that she continues to grieve over her who 3 years ago. The patient saw Dr. Rodriguez that she is currently talking to him and she wishes to be with him at time. The patient at that time denied any intent or plan to kill herself and had experienced intermittent feelings of hopelessness. Apparently, the patient was very emotional during with Dr. Rodriguez. Psychiatry had recommended the patient be transferred to the psychiatric unit; however, had reservations about patient having capacity to sign herself in. I continued to question patient's capacity after visiting with her bedside this morning. The patient was not able to tell me where she was located, which month is or which year. She was able to confirm that she is depressed and she is not suicidal; however, I could not manage to have a meaningful interview with her and not sure she could have at this time and I suspect that she is still suffering from delirium. Vital signs and labs were reviewed. Relevant psychiatric medications include Seroquel 12.5 at bedtime and Zoloft 50 mg daily. IMPRESSION: I agree with Dr. Rodriguez. The patient has still delirium and she has episodes of confusion and disorientation. Rule out major depressive disorder, rule out generalized anxiety disorder and rule out mood disorder due to general medical condition. PLAN: We will continue with current management and followup with patient and hopefully her orientation will improve, and she will be able to sign consent. Next followup would be on 03/28/2018 by this provider. Kamini Aguirre MD
--- NOTE | 2018-03-27 12:36 | CP.PCM.PN ---
<Clifton Flores - Last Filed: 03/27/18 12:23> Subjective - Date & Time of Evaluation Date of Evaluation: 03/27/18 Time of Evaluation: 09:15 - Subjective Subjective: Clifton Flores Y1 Hospital Progress Note Patient seen and examined at bedside this AM. No acute events overnight. Plan for discharge to psych. Left a voicemail on Son's phone, awaiting call back. Patient has dementia and currently lives alone. Offers no complaints at this time. Objective - Vital Signs/Intake and Output Vital Signs (last 24 hours): Temp Pulse Resp BP Pulse Ox 98.3 F 84 14 120/70 96 03/27/18 06:00 03/27/18 09:36 03/27/18 09:07 03/27/18 09:36 03/27/18 09:07 Intake and Output: 03/27/18 03/27/18 06:59 18:59 Intake Total 1980 Output Total 0 Balance 1979 - Medications Medications: Current Medications Albuterol/Ipratropium (Duoneb 3 Mg/0.5 Mg (3 Ml) Ud) 3 ml IH [id number] Last Admin: 03/27/18 07:24 Dose: 3 ml Aspirin (Ecotrin) 81 mg PO DAILY [facility] Last Admin: 03/27/18 09:36 Dose: 81 mg Atorvastatin Calcium (Lipitor) 20 mg PO DIN [facility] Last Admin: 03/26/18 21:50 Dose: 20 mg Budesonide (Pulmicort Respules) 0.25 mg IH [id number] [facility] Last Admin: 03/27/18 07:25 Dose: 0.25 mg Clopidogrel Bisulfate (Plavix) 75 mg PO DAILY [facility] Last Admin: 03/27/18 09:35 Dose: 75 mg Dextrose (Dextrose 50% Inj) 0 ml IV STAT PRN; Protocol PRN Reason: Hypoglycemia Protocol Famotidine (Pepcid) 20 mg PO HS [facility] Last Admin: 03/26/18 21:48 Dose: 20 mg Heparin Sodium (Porcine) (Heparin) 5,000 units SC Q8 [facility]; Protocol Last Admin: 03/27/18 05:40 Dose: 5,000 units Hydrochlorothiazide (Hydrodiuril) 25 mg PO DAILY [facility] Last Admin: 03/27/18 09:36 Dose: 25 mg Dextrose (Dextrose 5% In Water 1000 Ml) 1,000 mls @ 0 mls/hr IV .Q0M PRN; Protocol PRN Reason: Hypoglycemia Protocol Insulin Detemir (Levemir) 30 unit SC HS [facility] Last Admin: 03/26/18 21:49 Dose: 30 units Insulin Human Lispro (Humalog) 10 units SC AC [facility] Last Admin: 03/27/18 08:43 Dose: 10 unit Insulin Human Lispro (Humalog Low) 0 units SC ACHS [facility]; Protocol Last Admin: 03/27/18 08:43 Dose: Not Given Levetiracetam (Keppra) 500 mg PO Q12 [facility] Last Admin: 03/27/18 09:35 Dose: 500 mg Lisinopril (Zestril) 10 mg PO DAILY [facility] Last Admin: 03/27/18 09:35 Dose: 10 mg Metoprolol Tartrate (Lopressor) 50 mg PO DAILY [facility] Last Admin: 03/27/18 09:36 Dose: 50 mg Pantoprazole Sodium (Protonix Ec Tab) 40 mg PO ACB [facility] Last Admin: 03/27/18 08:44 Dose: 40 mg Quetiapine Fumarate (Seroquel) 12.5 mg PO [facility]; Protocol Last Admin: 03/26/18 21:49 Dose: 12.5 mg Sertraline HCl (Zoloft) 50 mg PO DAILY [facility] Last Admin: 03/27/18 09:36 Dose: 50 mg Trimethoprim/Sulfamethoxazole (Bactrim Ds Tab) 1 tab PO BID [facility]; Protocol Last Admin: 03/27/18 09:36 Dose: 1 tab - Labs Labs: 03/27/18 07:00 03/27/18 07:00 - Additional Findings Additional findings: - Constitutional Appears: Well, No Acute Distress, Confused - Head Exam Head Exam: ATRAUMATIC, NORMOCEPHALIC - Eye Exam Eye Exam: EOMI, Normal appearance, PERRL - ENT Exam ENT Exam: Mucous Membranes Moist - Respiratory Exam Respiratory Exam: NORMAL BREATHING PATTERN, CTA B/L, no respiratory distress or accessory muscle use Additional comments: - Cardiovascular Exam Cardiovascular Exam: regular rhyhtm, +S1, +S2 - GI/Abdominal Exam GI & Abdominal Exam: Normal Bowel Sounds, Soft, mild epigastric tenderness - Extremities Exam Extremities exam: Positive for: pedal pulses present. Negative for: pedal edema - Back Exam Back exam: absent: CVA tenderness (L), CVA tenderness (R) - Neurological Exam Neurological exam: Alert to person and place, not oriented to time. No motor/sensory deficits appreciated in upper or lower extremities B/L Additional comments: - Skin Skin Exam: Dry, Intact, Normal Color, Warm Assessment and Plan - Assessment and Plan (Free Text) Assessment: 63F w/ OR (s/p LCX angioplasty w/ balloon 2011) DM, CAD, HTN, HLD who was brought in by EMS on 03/22 w/ c/o of SOB; per ED documentation, patient was brought in by EMS after she was found wandering the streets; Upon arrival to ED she was found to have a blood glucose of >500. Admitted for management of AMS. Plan: AMS - likely 2/2 dementia -pending psych inpatient -psych on consult -P.T. - home with services -per son Efe, patient has dementia and has had similar problems in past of getting lost. She was hospitalized in [facility] in November 2017 per son for getting lost -unlikely 2/2 to [facility] as glucose resolved without insulin drip, and GAP of 18 closed quickly -consider superimposing depression from of -continue home zoloft -folate, B12, RPR are negative -CTAP negative -Head CT negative for acute pathology Hyperglycemia -called [email or web address] in [facility] -re-started on home meds: levemir 30 units HS, humalog 10 units AC -may escalate coverage if glucose remains high, will monitor -currently controlled -insulin sliding scale -A1c is 13.3 suggesting medical non compliance Hx of Depression -patient sad and tearful -continue home zoloft -lives alone at home in [place], performs ADL's independently per patient -Daughter lives in [place] -psych on consult UTI -patient is asymptomatic -Urine culture growing gram negative jose antonio, U/A shows small leuk esterase -bactrim day 3 out of 5 ?Seizure history -started on keppra 500mg BID -per son Efe, patient is taking on keppra delivered by mail at home for seizure, which is not reported in the patient's pharmacy Hx of CAD -continue ASA, plavix Hx of HTN/HLD -HCTZ, lisinopril, lopressor -lipitor PPX -pepcid, heparin Patient seen and case discussed with attending, Dr. Ashraf <Gloria Ashraf - Last Filed: 03/28/18 17:51> Objective - Vital Signs/Intake and Output Vital Signs (last 24 hours): Temp Pulse Resp BP Pulse Ox 98.4 F 77 20 116/79 100 03/28/18 14:00 03/28/18 14:00 03/28/18 14:00 03/28/18 14:00 03/28/18 14:00 - Medications Medications: Current Medications Aspirin (Ecotrin) 81 mg PO DAILY [facility] Last Admin: 03/28/18 09:46 Dose: 81 mg Atorvastatin Calcium (Lipitor) 20 mg PO DIN [facility] Last Admin: 03/27/18 17:57 Dose: 20 mg Budesonide (Pulmicort Respules) 0.25 mg IH [id number] [facility] Last Admin: 03/28/18 07:14 Dose: 0.25 mg Clopidogrel Bisulfate (Plavix) 75 mg PO DAILY [facility] Last Admin: 03/28/18 09:46 Dose: 75 mg Dextrose (Dextrose 50% Inj) 0 ml IV STAT PRN; Protocol PRN Reason: Hypoglycemia Protocol Famotidine (Pepcid) 20 mg PO HS [facility] Last Admin: 03/27/18 22:09 Dose: 20 mg Heparin Sodium (Porcine) (Heparin) 5,000 units SC Q8 [facility]; Protocol Last Admin: 03/28/18 15:44 Dose: 5,000 units Hydrochlorothiazide (Hydrodiuril) 25 mg PO DAILY [facility] Last Admin: 03/28/18 09:46 Dose: 25 mg Dextrose (Dextrose 5% In Water 1000 Ml) 1,000 mls @ 0 mls/hr IV .Q0M PRN; P rotocol PRN Reason: Hypoglycemia Protocol Insulin Detemir (Levemir) 30 unit SC HS [facility] Last Admin: 03/27/18 22:08 Dose: 30 units Insulin Human Lispro (Humalog Low) 0 units SC ACHS [facility]; Protocol Last Admin: 03/28/18 12:34 Dose: Not Given Insulin Human Lispro (Humalog) 12 units SC AC [facility] Levetiracetam (Keppra) 500 mg PO Q12 [facility] Last Admin: 03/28/18 09:47 Dose: 500 mg Lisinopril (Zestril) 10 mg PO DAILY [facility] Last Admin: 01/13/19 09:47 Dose: 10 mg Metoprolol Tartrate (Lopressor) 50 mg PO DAILY [facility] Last Admin: 03/28/18 09:47 Dose: 50 mg Pantoprazole Sodium (Protonix Ec Tab) 40 mg PO ACB [facility] Last Admin: 03/28/18 09:47 Dose: 40 mg Quetiapine Fumarate (Seroquel) 12.5 mg PO HS [facility]; Protocol Last Admin: 03/27/18 22:10 Dose: 12.5 mg Sertraline HCl (Zoloft) 50 mg PO DAILY [facility] Last Admin: 03/28/18 09:47 Dose: 50 mg Trimethoprim/Sulfamethoxazole (Bactrim Ds Tab) 1 tab PO BID [facility]; Protocol Last Admin: 03/28/18 09:46 Dose: 1 tab - Labs Labs: 03/28/18 07:00 03/28/18 07:00 Attending/Attestation - Attestation I have personally seen and examined this patient.: Yes I have fully participated in the care of the patient.: Yes I have reviewed all pertinent clinical information, including history, physical exam and plan: Yes Notes (Text): 03/28/18 17:46 Medical record note made by the resident after discussion with my direction and input after the patient was personally seen and examined by me. I have reviewed the chart and agree that the record accurately reflects by personal performance of the history, physical exam, data review, and medical decision-making, in the course for the patient. I have also personally directed the plan of care 63 F w/ OR (s/p LCX angioplasty w/ balloon 2011) DM, CAD, HTN, HLD who was brought in by EMS on 03/22 with change of mental status, as per ED documentation, patient was brought in by EMS after she was found wandering the streets; Upon arrival to ED she was found to have a blood glucose of >500. she was admitted for management of AMS and possible hyperosmolar state. Patient blood sugar is better controlled. Patient has underlying dementia and depression.Patient is medically stable , need to go to psychiatry, awaiting daughter to come to sign the consent as per psychiatry she is not competent.
--- NOTE | 2018-03-27 13:04 | PN ---
DATE: 03/27/2018 LOCATION: Room 574. SUBJECTIVE: This is a 63-year-old female with recent uncontrolled type 2 insulin-requiring diabetes, now being followed closely for metabolic management. Her glycemic levels are fluctuating but improved and the latest glucose values have ranged from 126 to 198 mg/dL. Her chemistry showed a BUN of 15, sodium 141, potassium 3.6, chloride 108, CO2 of 25, glucose 134 and creatinine 1.2. ASSESSMENT: This is a 63-year-old female with uncontrolled and decompensated type 2 insulin-requiring diabetes, presenting here with hyperosmolar hyperglycemic state and dehydration and is now improved clinically and metabolically as noted thereof. PLAN OF MANAGEMENT: We will continue the same basal and bolus insulin regimen to allow for dose equilibration and keep her on the Humalog given as 10 units t.i.d. before meals as ordered. We will also continue the same basal insulin given as Levemir at 30 units subcu at bedtime daily as ordered. We will continue the low-dose correction scale using Humalog insulin to obviate hypoglycemia, detailed orders have been given. We will also continue serial chemistries and supplement accordingly as needed. We will follow. Mireya Lopez MD
[2018-03-27] MEDS: Insulin Detemir 100 units/ml Vial (Levemir) SC SCH (22:08)
[2018-03-28] MEDS: Albuterol-Ipratrop 3 mg / 0.5 (3 ml) UD IH SCH ×3 (01:25→13:16)
[2018-03-28 06:19] VITALS: RESP 20
[2018-03-28] MEDS: Budesonide 0.25 mg/2 ml Inhal Susp UD IH SCH ×2 (07:14→20:25)
[2018-03-28 07:36] LABS: BASO # 0.02 K/mm3 (0.0-2.0); BASO % 0.3 % (0.0-3.0); EOS # 0.4 (0.0-0.7); EOS % 5.5 % (1.5-5.0); GRAN # 2.58 (1.4-6.5); GRAN % 36.7 % (50.0-68.0); HEMOGLOBIN 9.8 g/dL (12.0-16.0); LYMPH # 3.5 (1.2-3.4); LYMPH % 49.7 % (22.0-35.0); MEAN CELL VOLUME 92.7 fl (80.0-105.0); MEAN CORPUSCULAR HEMOGLOBIN 31.1 pg (25.0-35.0); MEAN CORPUSCULAR HGB CONC 33.6 g/dl (31.0-37.0); MEAN PLATELET VOLUME 9.7 fl (7.0-11.0); MONO # 0.6 (0.1-0.6); MONO % 7.8 % (1.0-6.0); RBC 3.15 10^6/uL (3.5-6.1); RED CELL DISTRIBUTION WIDTH 13.4 % (11.5-14.5)
[2018-03-28 08:18] LABS: ALB/GLOB RATIO 1.2 (1.1-1.8); ALBUMIN 3.7 g/dL (3.0-4.8); CALCIUM 9.1 mg/dL (8.4-10.5)
[2018-03-28] MEDS ORDERED: Sodium Chloride 0.9% 1,000 ML IV ONE (09:32)
[2018-03-28] MEDS: Insulin Lispro (humaLOG) LOW Coverage SC SCH ×4 (09:37→22:18)
[2018-03-28] MEDS: Tmp-Smz 800 mg-160 mg DS Tab PO SCH ×2 (09:46→18:50)
[2018-03-28] MEDS: Pantoprazole 40 mg EC Tab PO SCH (09:47)
[2018-03-28] MEDS: Insulin Lispro 1 UNITS/0.01 ML SC SCH ×2 (09:48→12:36)
[2018-03-28 13:19] LABS: BARBITURATES, UR NEGATIVE (NEGATIVE); BENZODIAZEPINES, UR NEGATIVE (NEGATIVE); OPIATES, UR NEGATIVE (NEGATIVE); PHENCYCLIDINE, UR NEGATIVE (NEGATIVE)
--- NOTE | 2018-03-28 13:25 | PN ---
DATE: 03/28/2018 LOCATION: Room 571. HISTORY OF PRESENT ILLNESS: This is a 63-year-old female with recent uncontrolled type 2 insulin-requiring diabetes now being followed closely for metabolic management. Her glycemic levels are fluctuating but improved and the glucose values overnight have ranged from 179-209 and 229 mg/dl. Her chemistries today showed a BUN of 21, sodium 140, potassium 3.6, chloride 106, CO2 25, glucose 193 and creatinine 1.4. PLAN: So at this time, we will continue the modified basal and bolus insulin regimen as given. We will increase the Humalog to 12 units subcu 3 times daily before meals to start at dinner time today as ordered. We will continue also the low-dose correction scale using Humalog insulin as given to obviate hypoglycemia and detailed orders have been given. We will also continue the basal insulin given as Levemir at 30 units subcu at bedtime daily as given. We will obtain serial chemistries and supplement accordingly as needed. We will follow. Mireya Lopez MD
--- NOTE | 2018-03-28 13:44 | CP.PCM.PCO ---
Physician Communication Note - Physician Communication Note Physician Communication Note: Patient has capacity and agrees to sign voluntarily into psych inpatient.
--- NOTE | 2018-03-28 14:50 | CP.PCM.DIS ---
Provider - Provider Date of Admission: 03/23/18 20:29 Attending physician: Gloria Ashraf MD Primary care physician: Estrella Jo MD Consults: 03/24/18 06:50 Endocrinology Consult Routine Comment: Consulting Provider: Mireya Lopez Consulting Physician: Mireya Lopez Reason for Consult: HHS Uncontrolled diabetic 03/24/18 06:51 Diabetic Education Referral Routine Comment: Physician Instructions: Reason For Exam: Patient noncompliant? 03/25/18 15:42 Case Management Referral Routine Comment: Physician Instructions: Reason For Exam: Reason for Referral: Discharge Planning Psychiatry Consult Routine Comment: Consulting Provider: Virginia Rodriguez Consulting Physician: Virginia Rodriguez Reason for Consult: depression 03/26/18 10:33 [facility] [Case Management Referral] Routine Comment: Physician Instructions: PT FOR GAIT TRAINING, STRENGTHENING AND HEP Reason For Exam: SN FOR MEDICATION AND DISEASE MANAGEMENT. Reason for Referral: [facility] Eval Time Spent in preparation of Discharge (in minutes): 35 Hospital Course - Lab Results Lab Results: Micro Results 03/23/18 19:45 Blood Blood Culture - Preliminary NO GROWTH AFTER 4 DAYS 03/23/18 18:15 Blood Blood Culture - Preliminary NO GROWTH AFTER 4 DAYS 03/23/18 18:15 Urine,Clean Catch Urine Culture - Final Escherichia Coli 03/23/18 23:25 Nose MRSA Culture (Admit) - Final MRSA NOT DETECTED Most Recent Lab Values WBC 7.0 10^3/uL (4.5-11.0) 03/28/18 07:00 RBC 3.15 10^6/uL (3.5-6.1) L 03/28/18 07:00 Hgb 9.8 g/dL (12.0-16.0) L 03/28/18 07:00 Hct 29.2 % (36.0-48.0) L 03/28/18 07:00 MCV 92.7 fl (80.0-105.0) 03/28/18 07:00 MCH 31.1 pg (25.0-35.0) 03/28/18 07:00 MCHC 33.6 g/dl (31.0-37.0) 03/28/18 07:00 RDW 13.4 % (11.5-14.5) 03/28/18 07:00 Plt Count 232 10^3/uL (120.0-450.0) 03/28/18 07:00 MPV 9.7 fl (7.0-11.0) 03/28/18 07:00 Gran % 36.7 % (50.0-68.0) L 03/28/18 07:00 Lymph % (Auto) 49.7 % (22.0-35.0) H 03/28/18 07:00 [place] % (Auto) 7.8 % (1.0-6.0) H 03/28/18 07:00 Eos % (Auto) 5.5 % (1.5-5.0) H 03/28/18 07:00 Baso % (Auto) 0.3 % (0.0-3.0) 03/28/18 07:00 Gran # 2.58 (1.4-6.5) 03/28/18 07:00 Lymph # (Auto) 3.5 (1.2-3.4) H 03/28/18 07:00 [place] # (Auto) 0.6 (0.1-0.6) 03/28/18 07:00 Eos # (Auto) 0.4 (0.0-0.7) 03/28/18 07:00 Baso # (Auto) 0.02 K/mm3 (0.0-2.0) 03/28/18 07:00 pO2 50 mm/Hg (30-55) 03/24/18 00:05 VBG pH 7.38 (7.32-7.43) 03/24/18 00:05 VBG pCO2 44.0 (40-60) 03/24/18 00:05 VBG HCO3 26.0 mmol/l (21-28) 03/24/18 00:05 VBG Total CO2 27.4 mmol.L (22-28) 03/24/18 00:05 VBG O2 Sat (Calc) 87.2 % (40-65) H 03/24/18 00:05 VBG Base Excess 0.5 mmol/L (0.0-2.0) 03/24/18 00:05 VBG Potassium 3.1 mmol/L (3.6-5.2) L 03/24/18 00:05 Sodium 141.0 mmol/L (132-148) 03/24/18 00:05 Chloride 107.0 mmol/L (98-107) 03/24/18 00:05 Glucose 161 mg/dl (65-105) H 03/24/18 00:05 Lactate 1.4 mmol/L (0.7-2.1) 03/24/18 00:05 FiO2 21.0 % 03/24/18 00:05 Sodium 140 mmol/L (132-148) 03/28/18 07:00 Potassium 3.6 mmol/L (3.6-5.0) 03/28/18 07:00 Chloride 106 mmol/L (98-107) 03/28/18 07:00 Carbon Dioxide 25 mmol/L (21-33) 03/28/18 07:00 Anion Gap 12 (10-20) 03/28/18 07:00 BUN 21 mg/dL (7-21) 03/28/18 07:00 Creatinine 1.4 mg/dl (0.7-1.2) H 03/28/18 07:00 Est GFR ( Amer) 46 03/28/18 07:00 Est GFR (Non-Af Amer) 38 03/28/18 07:00 POC Glucose (mg/dL) 209 mg/dL (65-110) H 03/28/18 11:30 Random Glucose 193 mg/dL (70-110) H 03/28/18 07:00 Hemoglobin A1c 13.3 % (4.2-6.5) H 03/24/18 06:00 Lactic Acid 2.4 mmol/L (0.7-2.1) H 03/24/18 06:00 Calcium 9.1 mg/dL (8.4-10.5) 03/28/18 07:00 Phosphorus 3.3 mg/dL (2.5-4.5) 03/23/18 19:15 Magnesium 2.0 mg/dL (1.7-2.2) 03/24/18 07:30 Iron 43 ug/dL (45-180) L 03/24/18 00:05 TIBC 308 ug/dL (265-497) 03/24/18 00:05 % Saturation 14 % (20-55) L 03/24/18 00:05 Ferritin 68.7 ng/mL 03/23/18 19:15 Total Bilirubin 0.7 mg/dL (0.2-1.3) 03/28/18 07:00 AST 27 U/L (14-36) 03/28/18 07:00 ALT 26 U/L (7-56) 03/28/18 07:00 Alkaline Phosphatase 101 U/L (38-126) 03/28/18 07:00 Total Creatine Kinase 45 U/L (29-143) 03/24/18 00:05 CK-MM (CK-3) 100 % (95-100) 03/24/18 00:05 CK-MB (CK-2) 0 % (<5) 03/24/18 00:05 CK-BB (CK-1) None detected % (None Detected) 03/24/18 00:05 CK Isoenzymes Interp see note 03/24/18 00:05 Troponin I 0.02 ng/mL 03/24/18 06:00 NT-Pro-B Natriuret Pep 432 pg/mL (0-450) 03/23/18 19:15 Total Protein 6.8 g/dL (5.8-8.3) 03/28/18 07:00 Albumin 3.7 g/dL (3.0-4.8) 03/28/18 07:00 Globulin 3.1 gm/dL 03/28/18 07:00 Albumin/Globulin Ratio 1.2 (1.1-1.8) 03/28/18 07:00 Triglycerides 104 mg/dL (35-160) 03/24/18 06:00 Cholesterol 284 mg/dL (130-200) H 03/24/18 06:00 LDL Cholesterol Direct 172 mg/dL (0-129) H 03/24/18 06:00 HDL Cholesterol 65 mg/dL (29-60) H 03/24/18 06:00 Vitamin B12 478 pg/mL (239-931) 03/23/18 19:15 Folate 8.7 ng/mL 03/23/18 19:15 Venous Blood Potassium 3.1 mmol/L (3.6-5.2) L 03/24/18 00:05 Urine Color Yellow (YELLOW) 03/23/18 18:15 Urine Appearance Clear (CLEAR) 03/23/18 18:15 Urine pH 6.0 (4.7-8.0) 03/23/18 18:15 Ur Specific [place] 1.020 (1.005-1.035) 03/23/18 18:15 Urine Protein Negative mg/dL (<30 mg/dL) 03/23/18 18:15 Urine Glucose (UA) >=1000 mg/dL (NEGATIVE) 03/23/18 18:15 Urine Ketones Negative mg/dL (NEGATIVE) 03/23/18 18:15 Urine Blood Negative (NEGATIVE) 03/23/18 18:15 Urine Nitrate Negative (NEGATIVE) 03/23/18 18:15 Urine Bilirubin Negative (NEGATIVE) 03/23/18 18:15 Urine Urobilinogen 0.2 E.U./dL (<1 E.U./dL) 03/23/18 18:15 Ur Leukocyte Esterase Small Nicole/uL (NEGATIVE) H 03/23/18 18:15 Urine RBC 1 - 3 /hpf (0-2) H 03/23/18 18:15 Urine WBC 10 - 15 /hpf (0-6) H 03/23/18 18:15 Ur Epithelial Cells 1 - 3 /hpf (0-5) 03/23/18 18:15 Urine Bacteria Few /hpf (NONE) 03/23/18 18:15 Urine Opiates Screen Negative (NEGATIVE) 03/28/18 12:40 Urine Methadone Screen Negative (NEGATIVE) 03/28/18 12:40 Ur Barbiturates Screen Negative (NEGATIVE) 03/28/18 12:40 Ur Phencyclidine Scrn Negative (NEGATIVE) 03/28/18 12:40 Ur Amphetamines Screen Negative (NEGATIVE) 03/28/18 12:40 U Benzodiazepines Scrn Negative (NEGATIVE) 03/28/18 12:40 U Oth Cocaine Metabols Negative (NEGATIVE) 03/28/18 12:40 U Cannabinoids Screen Negative (NEGATIVE) 03/28/18 12:40 Alcohol, Quantitative < 10 mg/dL (0-10) 03/24/18 10:30 B-Hydroxybutyrate 0.07 mM (0.02-0.27) 03/23/18 19:15 RPR Nonreactive (NONREACTIVE) 03/24/18 10:30 - Hospital Course Hospital Course: Upon admission, 63 year old female with PMH of [place] s/p LCX sten 2011, DM, CAD, HTN, HLD who was brought in by EMS on 03/22 w/ c/o of SOB; per ED documentation, patient was brought in by EMS after she was found wandering the streets; She was found to have a blood glucose of >500. During interview it was noted that patient was somewhat confused and AAO1 on exam. She personally was complaining of SOB, and kept mentioning it waas hard for her to breath ever since her passed. She denied any cough, fevers, chills, chest pain, palpitations, new onset lower extremity edema. She reported that she has been compliant w/ her diabetic medications, and her diet however upon evaluation of patient's personal artifacts it was noted patient was carrying a box of sweets/pastries. During hospital course, patient admitted for hyperglycemia and AMS. Patient unlikely to have HHS as hyperglycemia resolved with 10 units and no drip was required for glucose control. GAP mildly elevated on presentation but resolved shortly afterward. Patient treated for one day in the ICU and deemed stable for transfer to the medical floor. Patient continued to appear confused and workup including infectious etiology as well as RPR, B12 and folate was unremarkable. CT head and CTAP was also unremarkable. After discussion with son Jeovanny who is listed as the person to notify, he stated patient has dementia and that her presentation is consistent with her mental baseline. Willn also states patient had hospital admission at [facility] for similar presentation of AMS. Home medications was obtained by son and patient started on zoloft and keppra as per son's instructions. Patient has capacity as she is alert and oriented to person, place and time. She states she lives alone and performs her ADL's independently without the assistance of others. Patient agreed with voluntary admission to psych admission. All of patient's questions were answered. Discharge Exam - Additional Findings Additional findings: - Constitutional Appears: Well, No Acute Distress, Confused - Head Exam Head Exam: ATRAUMATIC, NORMOCEPHALIC - Eye Exam Eye Exam: EOMI, Normal appearance, PERRL - ENT Exam ENT Exam: Mucous Membranes Moist - Respiratory Exam Respiratory Exam: NORMAL BREATHING PATTERN, CTA B/L, no respiratory distress or accessory muscle use Additional comments: - Cardiovascular Exam Cardiovascular Exam: regular rhyhtm, +S1, +S2 - GI/Abdominal Exam GI & Abdominal Exam: Normal Bowel Sounds, Soft, mild epigastric tenderness - Extremities Exam Extremities exam: Positive for: pedal pulses present. Negative for: pedal edema - Back Exam Back exam: absent: CVA tenderness (L), CVA tenderness (R) - Neurological Exam Neurological exam: Alert to person and place. No motor/sensory deficits appreciated in upper or lower extremities B/L Additional comments: - Skin Skin Exam: Dry, Intact, Normal Color, Warm Discharge Plan - Follow Up Plan Condition: CRITICAL Disposition: DISCHARGE TO [facility] Additional Instructions: As per our discussion, you have elected to voluntarily receive psychiatry treatment. Please continue medications as currently being taken. Please follow up with your primary doctor when discharged from the hospital within 5-7 days of discharge. Please return to the ED for any new or worsening symptoms. Referrals: Isaias Jo MD [Primary Care Provider] -
[2018-03-28] MEDS ORDERED: Insulin Lispro 1 UNITS/0.01 ML SC SCH (16:30)
[2018-03-28 16:59] VITALS: BP 116/79; PULSE 77; TEMP 98.4; O2SAT 100
[2018-03-28] MEDS: Insulin Detemir 100 units/ml Vial (Levemir) SC SCH (22:20)
--- NOTE | 2018-03-29 08:17 | PN ---
DATE: 03/26/2018 ENDOCRINOLOGY FOLLOWUP NOTE LOCATION: In room 571. SUBJECTIVE: This is a 63-year-old female with recent uncontrolled type 2 insulin-requiring diabetes admitted here with hyperosmolar and hyperglycemic state and dehydration and is now being followed closely for metabolic management. Her glycemic levels overnight are fluctuating, but improved and the glucose values have ranged from 199-208 mg/dL. It was 293 at bedtime last night. LABORATORY DATA: Her chemistry showed a BUN of 11, sodium 137, potassium 4, chloride 105, CO2 of 24, glucose 227, and creatinine 1.1. ASSESSMENT AND PLAN: So, at this time, we will continue the same basal and bolus insulin regimen to allow for dose equilibration and keep her on the Humalog given as 10 units subcutaneously t.i.d. before meals as ordered. We will continue the Levemir given as 30 units subcutaneously at bedtime daily as given. We will also continue the IV hydration as ordered to allow for full replenishment of her lost fluids and electrolytes accordingly. We will obtain serial chemistries and supplement accordingly as needed. We will follow. Mireya Lopez MD
== END 2018-03-28 22:22 | DRG 638 ==
LOC: ED 18:28 → ERH 20:29 → ICU 23:12 → 5RSO 03-24 18:21
PROVIDERS: ADMIT Hospitalist; ATTEND Internal Medicine
DX: E11.00 Type 2 diabetes mellitus with hyperosmolarity without nonketotic hyperglycemic-hyperosmolar coma (NKHHC) (principal); N39.0 Urinary tract infection, site not specified; B96.20 Unspecified Escherichia coli [E. coli] as the cause of diseases classified elsewhere; E86.0 Dehydration; I25.10 Atherosclerotic heart disease of native coronary artery without angina pectoris; I10 Essential (primary) hypertension; F03.90 Unspecified dementia, unspecified severity, without behavioral disturbance, psychotic disturbance, mood disturbance, and anxiety; D64.9 Anemia, unspecified; E78.5 Hyperlipidemia, unspecified; F32.9 Major depressive disorder, single episode, unspecified; R56.9 Unspecified convulsions; Z91.83 Wandering in diseases classified elsewhere; Z95.5 Presence of coronary angioplasty implant and graft; I25.2 Old myocardial infarction; Z79.82 Long term (current) use of aspirin; Z79.02 Long term (current) use of antithrombotics/antiplatelets; Z79.4 Long term (current) use of insulin; Z91.19 Patient's noncompliance with other medical treatment and regimen

== ENCOUNTER 2018-03-28 22:24 | Inpatient (IN) | payer OTHER ==
[2018-03-28] MEDS ORDERED: Magnesium Hydroxide Susp 30 ml UD PO PRN (23:54)
[2018-03-28] MEDS ORDERED: Alum-Mag Hydrox-Simethicone Susp (30 mL) PO PRN (23:54)
--- NOTE | 2018-03-29 00:22 | PCM.BM ---
<Vangie Trejo - Last Filed: 03/29/18 00:19> Treatment Plan Problems - Problems identified on initial assessmt INEFFECTIVE COPING Date Initiated: 03/28/18 Time Initiated: 21:00 Assessment reference: NA Status: Active Priority: 1 HOPELESSNESS Date Initiated: 03/28/18 Time Initiated: 21:00 Assessment reference: NA Status: Active Priority: 2 ALTERED SLEEPING Date Initiated: 03/28/18 Time Initiated: 21:00 Assessment reference: NA Status: Active Priority: 3 SOCIAL ISOLATION Date Initiated: 03/28/18 Time Initiated: 21:00 Assessment reference: NA Status: Active Priority: 4 Treatment assets and liabiliti Patient Assests: adapts well, cooperative, educated, insightful, self-reliant, ADL independent, good support system, negotiates basic needs, cognitively intact Patient Liabilities: live alone, financial problems, dietary restrictions, medical problems - Milieu Protocol Maintain good personal hygiene: every other day Encourage regular showers, every shift Remind patient to perform daily oral care, every shift Assist patient to perform ADL's Maintain personal safety: every shift Educate patient to report safety concerns to staff, every shift Monitor environment for contraband/sharps Medication safety: Monitor for expected outcome, potential side effects: every shift, Assess barriers to learning: every shift, Assess readiness for medication education: every shift Family Contact Family involvement: Family/SO is involved Family contact: Patient agrees to contact Discharge/Continuing Care - Education Needs Education Needs: Patient Medication, Patient Diagnosis/Disease Process, Patient Coping Skills, Patient Activities of Daily Living, Patient Nutrition, Patient Health Practices/Safety, Patient Personal Hygiene/Grooming - Discharge Discharge Criteria: Tolerates medication w/o severe side effects, Free of Suicidal thoughts <Virginia Rodriguez A - Last Filed: 03/29/18 12:29> - Diagnosis (1) MDD (major depressive disorder) Status: Acute Interventions: 03/29/18 12:29 Psychoeducation Psychopharmacology/adjustment of medications as needed/ monitoring possible side effects Evaluate pt on daily basis Compliance with medications and follow up appointments Suicide and homicide risk assessment and prevention Relapse prevention Reduction of symptoms Improve functional status Family involvement As outpatient: cognitive behavioral therapy <Stephy Mitchell Y - Last Filed: 03/29/18 15:26> Family Contact Family contact: Patient agrees to contact
[2018-03-29 08:09] LABS: BASO # 0.04 K/mm3 (0.0-2.0); BASO % 0.6 % (0.0-3.0); EOS # 0.5 (0.0-0.7); EOS % 6.5 % (1.5-5.0); GRAN # 3.18 (1.4-6.5); GRAN % 44.5 % (50.0-68.0); HEMOGLOBIN 9.2 g/dL (12.0-16.0); LYMPH % 41.5 % (22.0-35.0); MEAN CELL VOLUME 93.6 fl (80.0-105.0); MEAN CORPUSCULAR HEMOGLOBIN 30.9 pg (25.0-35.0); MEAN PLATELET VOLUME 9.6 fl (7.0-11.0); MONO # 0.5 (0.1-0.6); MONO % 6.9 % (1.0-6.0); RBC 2.98 10^6/uL (3.5-6.1); RED CELL DISTRIBUTION WIDTH 13.6 % (11.5-14.5); WHITE BLOOD COUNT 7.1 10^3/uL (4.5-11.0)
[2018-03-29 08:17] LABS: ALB/GLOB RATIO 1.2 (1.1-1.8); ALBUMIN 3.7 g/dL (3.0-4.8); CALCIUM 9.2 mg/dL (8.4-10.5)
[2018-03-29] MEDS: Insulin Lispro 1 UNITS/0.01 ML SC SCH ×3 (08:53→17:40)
[2018-03-29] MEDS: Insulin Lispro (humaLOG) LOW Coverage SC SCH ×4 (08:55→21:31)
[2018-03-29] MEDS: Pantoprazole 40 mg EC Tab PO SCH (10:04)
[2018-03-29] MEDS: Omega-3-Acid Ethyl Esters 1 GM Cap PO SCH (10:05)
--- NOTE | 2018-03-29 13:35 | PCM.PSYCH ---
Initial Psychiatric Evaluation - Initial Psychiatric Evaluation Type of Admission: Voluntary Legal Status: Capacity Chief Complaint (in patient's own words): "I was feeling depressed, I am missing my so much, I want to join him" Patient's Reaction to Hospitalization: Patient was transferred from the medical floor for evaluation and stabilization of depressive symptoms, hopelessness, inability to function, initially patient was admitted to the medical floor after being found confused, wandering on the streets. History of Present Illness and Precipitating Events: Shortly, patient is 63 year old female from [facility], multiple medical comorbidities such as PMH of AL s/p LCX sten 2011, DM, CAD, HTN, HLD who was initially brought in by EMS on 03/22 w/ c/o of SOB; per ED documentation, patient was brought in by EMS after she was found wandering the streets, patient was found to have a blood glucose of >500, confused, did not know her date of , her address, and location. Patient was admitted on the medical side, this ticket writer got involved in to the patient care because of depression, confusion, please see initial consultation for more detailed information. Over the weekend patient was medically stabilized, patient presented to be depressed, hopeless, helpless, wanted to join her , patient requires further evaluation, stabilization, medications adjustment. Patient was seen today at the treatment team meeting, patient presented to be alert, somewhat withdrawn, with psychomotor retardation, and some mixed features. Patient had poor personal hygiene, messy hair, seems to be disengaged, stares on the wall, acceptable ADLs. Patient also has slow and underproductive speech, difficulties to stay focused and concentrate. Patient reported that since her depressed, hopeless, helpless, worthless, and guilty. Patient wants to join her who , but adamantly denied any thoughts of killing herself, patient was making statements such as "I am keep asking God to take me and bring me to my ". Patient reports that she is feeling anxious, has difficulty to breathe since her . Patient is not consistent with the date of her 's , in the emergency room patient said that her 1 year ago, but this ticket writer she said that he 2 years ago, to a medical team patient reported that her 3 years back. Patient denied hearing voices denied seeing things denied paranoid ideation but patient presented to be internally preoccupied. Patient denied history of abuse. Patient denies history of using drugs, denies smoking, denies alcohol consumption. Medical history: See above. Past psychiatric history: As per medical team report patient had similar presentation, has history of being admitted by [facility] for altered mental status, questionable history of dementia, patient was on Zoloft and Keppra. Patient denies history of suicidal attempts. Patient was on high dose of Ambien by her primary care physician. Family history: Patient denied family history of mental illnesses. Patient gave permission to talk to her son. 03/29/18 07:50 03/29/18 07:50 Lab Results 03/29/18 07:50: Sodium 139, Potassium 4.6, Chloride 109 H, Carbon Dioxide 25, Anion Gap 10, BUN 26 H, Creatinine 1.5 H, Est GFR ( Amer) 42, Est GFR (Non-Af Amer) 35, Random Glucose 213 H, Calcium 9.2, Total Bilirubin 0.8, AST 27, ALT 24, Alkaline Phosphatase 88, Total Protein 6.6, Albumin 3.7, Globulin 3.0, Albumin/Globulin Ratio 1.2 03/29/18 07:50: WBC 7.1, RBC 2.98 L, Hgb 9.2 L, Hct 27.9 L, MCV 93.6, MCH 30.9, MCHC 33.0, RDW 13.6, Plt Count 235, MPV 9.6, Gran % 44.5 L, Lymph % (Auto) 41.5 H, [place] % (Auto) 6.9 H, Eos % (Auto) 6.5 H, Baso % (Auto) 0.6, Gran # 3.18, Lymph # (Auto) 3.0, [place] # (Auto) 0.5, Eos # (Auto) 0.5, Baso # (Auto) 0.04 Vital Signs Pulse Resp BP 03/29/18 10:04 67 115/59 L 03/29/18 10:03 67 115/59 L 03/28/18 23:31 20 The patient failed the outpatient lower level of care: Yes Current Medications: Active Medications Generic Name Dose Route Start Last Admin Trade Name Freq PRN Reason Stop Dose Admin Acetaminophen 650 mg 03/28/18 23:54 Tylenol 325mg Tab PO Q4H PRN Pain, Mild (1-3) Al Hydrox/Mg Hydrox/Simethicone 30 ml 03/28/18 23:54 Maalox Plus 30 Ml PO DAILY PRN Upset Stomach Aspirin 81 mg 03/29/18 08:00 03/29/18 10:05 Ecotrin PO 81 mg DAILY [facility] Administration Atorvastatin Calcium 20 mg 03/29/18 17:00 Lipitor PO DIN [facility] Clopidogrel Bisulfate 75 mg 03/29/18 08:00 03/29/18 10:05 Plavix PO 75 mg DAILY [facility] Administration Gabapentin 300 mg 03/29/18 08:00 03/29/18 10:05 Neurontin PO 300 mg DAILY [facility] Administration Hydrochlorothiazide 25 mg 03/29/18 08:00 03/29/18 10:02 Hydrodiuril PO Not Given DAILY [facility] Insulin Detemir 30 unit 03/29/18 22:00 Levemir SC HS [facility] Insulin Human Lispro 12 units 03/29/18 07:30 03/29/18 12:19 Humalog SC Not Given AC [facility] Insulin Human Lispro 0 units 03/29/18 07:30 03/29/18 12:17 Humalog Low SC Not Given ACHS [facility] Protocol Levetiracetam 500 mg 03/29/18 06:00 03/29/18 06:42 Keppra PO 500 mg Q12 [facility] Administration Lisinopril 10 mg 03/29/18 08:00 03/29/18 10:04 Zestril PO Not Given DAILY [facility] Magnesium Hydroxide 30 ml 03/28/18 23:54 Milk Of Magnesia PO DAILY PRN Constipation Metoprolol Tartrate 50 mg 03/29/18 08:00 03/29/18 10:03 Lopressor PO Not Given DAILY [facility] Montelukast Sodium 10 mg 03/28/18 23:15 03/28/18 23:15 Singulair PO 10 mg HS [facility] Administration [id number] Ethyl Esters 1 gm 03/29/18 08:00 03/29/18 10:05 Lovaza PO 1 gm DAILY [facility] Administration Pantoprazole Sodium 40 mg 03/29/18 07:30 03/29/18 10:04 Protonix Ec Tab PO 40 mg ACB [facility] Administration Quetiapine Fumarate 12.5 mg 03/28/18 23:00 03/28/18 23:16 Seroquel PO 12.5 mg HS [facility] Administration Protocol Sertraline HCl 50 mg 03/29/18 08:00 03/29/18 10:05 Zoloft PO 50 mg DAILY [facility] Administration Zolpidem Tartrate 5 mg 03/28/18 23:12 03/28/18 23:17 Ambien PO 5 mg HS PRN Administration Insomnia Protocol Present on Admission - Present on Admission Any Indicators Present on Admission: No Review of Systems - Review of Systems Systems not reviewed;Unavailable: Acuity of Condition - Constitutional Constitutional: As Per HPI - EENT Eyes: As Per HPI Ears: As Per HPI Nose/Mouth/Throat: As Per HPI - Breasts Breasts: As Per HPI - Cardiovascular Cardiovascular: As Per HPI - Respiratory Respiratory: As Per HPI - Gastrointestinal Gastrointestinal: As Per HPI - Genitourinary Genitourinary: As Per HPI - Reproductive: Female Reproductive:Female: As Per HPI - Menstruation Menstruation: As Per HPI - Musculoskeletal Musculoskeletal: As Per HPI - Integumentary Integumentary: As Per HPI - Neurological Neurological: As Per HPI - Psychiatric Psychiatric: As Per HPI - Endocrine Endocrine: As Per HPI - Hematologic/Lymphatic Hematologic: As Per HPI Past Patient History - Past Psychiatric History Previous Treatment History: Inpatient Prior Professional Help: See HPI Prior Psychiatric Treatment: See HPI At what hospital: See HPI Duration: See HPI Nature of Treatment: See HPI Explanation of prior treatment: See HPI - PSYCHIATRIC Hx Depression: Yes Hx Emotional Abuse: No Hx Physical Abuse: No Hx Substance Use: No - Infectious Disease Hx of Infectious Diseases: None - CARDIAC Hx Cardiac Disorders: No - NEUROLOGICAL Hx Neurological Disorder: No Hx Paralysis: No - HEENT Hx HEENT Problems: No - RENAL Hx Chronic Kidney Disease: No - ENDOCRINE/METABOLIC Hx Diabetes Mellitus Type 2: Yes - HEMATOLOGICAL/ONCOLOGICAL Hx Blood Transfusions: No Hx Blood Transfusion Reaction: No - INTEGUMENTARY Hx Dermatological Problems: No - MUSCULOSKELETAL/RHEUMATOLOGICAL Hx Musculoskeletal Disorders: Yes - GASTROINTESTINAL Hx Gastrointestinal Disorders: No - GENITOURINARY/GYNECOLOGICAL Hx Genitourinary Disorders: No - SURGICAL HISTORY Hx Surgeries: Yes - ANESTHESIA Hx Anesthesia Reactions: No Hx Malignant Hyperthermia: No - Medical/Surgical History Reviewed & confirmed: by mi Meds Allergies/Adverse Reactions: Allergies Allergy/AdvReac Type Severity Reaction Status Date / Time No Known Allergies Allergy Verified 03/29/18 00:09 Mental Status Examination - Personal Presentation Personal Presentation: Looks older than stated age - Affect Affect: Blunted, Flat - Motor Activity Motor Activity: Calm, Psychomotor Retardation - Reliability in Providing Information Reliability in Providing Information: Poor, due to alteration in thoughts, Poor, due to altered mood - Speech Speech: Organized - Mood Mood: Depressed, Anxious - Formal Thought Process Formal Thought Process: Other (Patient appears at times confused, inconsistent with a history) - Obsessions/Compulsions Obsessions: None Compulsions: None - Cognitive Functions Orientation: Person, Place, Situation Sensorium: Alert Attention/Concentration: Easily distracted Abstract Thinking: [place] Judgement: Intact, as evidence by: Insight regarding need for hospitalization - Risk Risk: Diminished functioning - Strength & Assets Inventory Strength & Assets Inventory: Intelligence, Family support, Spiritual affiliatio ns, Cooperative - Limitations Limitations: Other (History of wandering in the community, recent of her ) Psychiatric Physical Exam - Physical Exam Reviewed and confirmed: Emergency Department Physical Exam Results - Vital Signs Recent Vital Signs: Last Vital Signs Temp Pulse 67 03/29/18 10:04 Resp 20 03/28/18 23:31 BP 115/59 L 03/29/18 10:04 Pulse Ox - Labs Result Diagrams: 03/29/18 07:50 03/29/18 07:50 Labs: Laboratory Results - last 24 hr 03/29/18 03/29/18 07:50 07:50 WBC 7.1 RBC 2.98 L Hgb 9.2 L Hct 27.9 L MCV 93.6 MCH 30.9 MCHC 33.0 RDW 13.6 Plt Count 235 MPV 9.6 Gran % 44.5 L Lymph % (Auto) 41.5 H [place] % (Auto) 6.9 H Eos % (Auto) 6.5 H Baso % (Auto) 0.6 Gran # 3.18 Lymph # (Auto) 3.0 [place] # (Auto) 0.5 Eos # (Auto) 0.5 Baso # (Auto) 0.04 Sodium 139 Potassium 4.6 Chloride 109 H Carbon Dioxide 25 Anion Gap 10 BUN 26 H Creatinine 1.5 H Est GFR ( Amer) 42 Est GFR (Non-Af Amer) 35 Random Glucose 213 H Calcium 9.2 Total Bilirubin 0.8 AST 27 ALT 24 Alkaline Phosphatase 88 Total Protein 6.6 Albumin 3.7 Globulin 3.0 Albumin/Globulin Ratio 1.2 - EKG Data EKG Interpreted by: ER Physician DSM Plan - DSM 5 DSM 5 Diagnosis: Rule out major depressive disorder Rule out pathological grief Rule out pseudodementia due to major depressive disorder - Recommended/Plan of Treatment Treatment Recommendations and Plan of Treatment: Milieu/structure/supportive therapy Medical consult appreciated, see medical team note for more detailed info SW consultation for discharge plan and social issues Med management Zoloft was continued 50 mg daily for depression and anxiety Neurontin 300 mg 3 times a day for neuropathy Ambien 5 mg at the nighttime for insomnia Seroquel 12.5 mg at the nighttime for confusion and mood stabilization Family involvement Follow up on labs Will monitor closely Pt was educated about risk/benefits and alternatives of medications, coping strategies (safety plan, suicide prevention), relapse prevention, importance of follow up with psychiatrist and therapist, stay away from drugs/alcohol/smoking trademark is 0. He wanted to come back to speak with him before he leaves today he will consider house came he is okay I think he said he had signed a 48 at that he is still interested in leaving so we will little better his Projected ELOS: 7 days Prognosis: Guarded Discharge Plan and Discharge Criteria: Pt will be not depressed or manic, will be more hopeful, will be not psychotic or anxious, will be not having thoughts of harming self or others, will be tolerating medications well, will not have major side effects, will be able to function, will not pose threat to self or others. - Tobacco Cessation Tobacco Use Status for the last 30 days: Non User Tobacco Use Treatment Practical Counseling Provided: No Tobacco Use Treatment FDA-Approved Cessation Medication Provided: No Reason for not providing: Other (Denies smoking) - Alcohol or Substance Abuse Does the patient have an Alcohol or Substance Abuse Disorder: No Initial Psych Certification - Initial Certification I certify that the inpatient psychiatric facility admission was medically necessary for either: Treatment which could reasonbly be expected to improve pt's condition, Diagnostic study I estimate of hospitalization is necessary for proper treatment of the patient: 7 Unit of Time: Days My plans for post-hospital care for this patient are: Day treatment program.
--- NOTE | 2018-03-29 15:17 | CP.PCM.CON ---
<VinhJavier - Last Filed: 03/29/18 16:42> History of Present Illness - History of Present Illness History of Present Illness: Javier Justice, PGY-1 Medicine Consult Note for Dr. Beard: Pt is a 63 yo F with pmhx of MT s/p LCX sten 2011, DM, CAD, HTN, HLD who was admitted to voluntary psych unit after being admitted for AMS and hyperglycemia vs HHNS on admission. In the ED the pt was noted to have BS >500 and was then treated with insulin. Pt then responded quickly to the insulin treatment, though still had some AMS. Family was called who stated that the pt is at baseline mental functioning for her. She was then admitted to psych for further management per psych team. We are consulted to medically optimize the pt and manage her underlying medical conditions. Pt currently states that she is having no acute issues at this time. She denies fevers, chills, headaches, weakness, dizziness, SOB, cough, chest pain, palpitations, leg swelling, abd pain, n/v, c/d, or dysuria though pt does admit to increased urinary frequency likely 2/2 poor diabetic control. Pmhx: MT s/p LCX sten 2011, DM, CAD, HTN, HLD Pshx: Denies All: NKDA Social: Denies any tobacco use, etoh or illicit drug use Fam: Non-contributory Review of Systems - Review of Systems Review of Systems: 12 point ROS reviewed and negative except for noted in HPI above Past Patient History - Infectious Disease Hx of Infectious Diseases: None - Past Social History Smoking Status: Unknown If Ever Smoked - CARDIAC Hx Cardiac Disorders: No - NEUROLOGICAL Hx Neurological Disorder: No Hx Paralysis: No - HEENT Hx HEENT Problems: No - RENAL Hx Chronic Kidney Disease: No - ENDOCRINE/METABOLIC Hx Diabetes Mellitus Type 2: Yes - HEMATOLOGICAL/ONCOLOGICAL Hx Blood Transfusions: No Hx Blood Transfusion Reaction: No - INTEGUMENTARY Hx Dermatological Problems: No - MUSCULOSKELETAL/RHEUMATOLOGICAL Hx Musculoskeletal Disorders: Yes - GASTROINTESTINAL Hx Gastrointestinal Disorders: No - GENITOURINARY/GYNECOLOGICAL Hx Genitourinary Disorders: No - PSYCHIATRIC Hx Depression: Yes Hx Emotional Abuse: No Hx Physical Abuse: No Hx Substance Use: No - SURGICAL HISTORY Hx Surgeries: Yes - ANESTHESIA Hx Anesthesia Reactions: No Hx Malignant Hyperthermia: No Meds Allergies/Adverse Reactions: Allergies Allergy/AdvReac Type Severity Reaction Status Date / Time No Known Allergies Allergy Verified 03/29/18 00:09 - Medications Medications: Current Medications Acetaminophen (Tylenol 325mg Tab) 650 mg PO Q4H PRN PRN Reason: Pain, Mild (1-3) Last Admin: 03/29/18 13:11 Dose: 650 mg Al Hydrox/Mg Hydrox/Simethicone (Maalox Plus 30 Ml) 30 ml PO DAILY PRN PRN Reason: Upset Stomach Aspirin (Ecotrin) 81 mg PO DAILY [facility] Last Admin: 03/29/18 10:05 Dose: 81 mg Atorvastatin Calcium (Lipitor) 20 mg PO DIN [facility] Clopidogrel Bisulfate (Plavix) 75 mg PO DAILY [facility] Last Admin: 03/29/18 10:05 Dose: 75 mg Gabapentin (Neurontin) 300 mg PO DAILY [facility] Last Admin: 03/29/18 10:05 Dose: 300 mg Hydrochlorothiazide (Hydrodiuril) 25 mg PO DAILY [facility] Last Admin: 03/29/18 10:02 Dose: Not Given Insulin Detemir (Levemir) 30 unit SC [facility] Insulin Human Lispro (Humalog) 12 units SC AC [facility] Last Admin: 03/29/18 12:19 Dose: Not Given Insulin Human Lispro (Humalog Low) 0 units SC [facility]; Protocol Last Admin: 03/29/18 12:17 Dose: Not Given Levetiracetam (Keppra) 500 mg PO Q12 [facility] Last Admin: 03/29/18 06:42 Dose: 500 mg Lisinopril (Zestril) 10 mg PO DAILY [facility] Last Admin: 03/29/18 10:04 Dose: Not Given Magnesium Hydroxide (Milk Of Magnesia) 30 ml PO DAILY PRN PRN Reason: Constipation Metoprolol Tartrate (Lopressor) 50 mg PO DAILY [facility] Last Admin: 03/29/18 10:03 Dose: Not Given Montelukast Sodium (Singulair) 10 mg PO HS [facility] Last Admin: 03/28/18 23:15 Dose: 10 mg Urzco-9-Bfta Ethyl Esters (Lovaza) 1 gm PO DAILY [facility] Last Admin: 03/29/18 10:05 Dose: 1 gm Pantoprazole Sodium (Protonix Ec Tab) 40 mg PO ACB [facility] Last Admin: 03/29/18 10:04 Dose: 40 mg Quetiapine Fumarate (Seroquel) 12.5 mg PO HS [facility]; Protocol Last Admin: 03/28/18 23:16 Dose: 12.5 mg Sertraline HCl (Zoloft) 50 mg PO DAILY [facility] Last Admin: 03/29/18 10:05 Dose: 50 mg Zolpidem Tartrate (Ambien) 5 mg PO HS PRN; Protocol PRN Reason: Insomnia Last Admin: 03/28/18 23:17 Dose: 5 mg Physical Exam - Constitutional Appears: Non-toxic, No Acute Distress - Head Exam Head Exam: ATRAUMATIC, NORMOCEPHALIC - Eye Exam Eye Exam: EOMI, Normal appearance, PERRL - Respiratory Exam Respiratory Exam: Accessory Muscle Use, Clear to Auscultation Bilateral, NORMAL BREATHING PATTERN. absent: Rales, Rhonchi, Wheezes - Cardiovascular Exam Cardiovascular Exam: RRR, +S1, +S2. absent: Tachycardia, Gallop, Rubs, Systolic Murmur - GI/Abdominal Exam GI & Abdominal Exam: Normal Bowel Sounds, Soft. absent: Distended, Firm, Guarding, Tenderness - Extremities Exam Extremities exam: Positive for: full ROM, normal capillary refill, pedal pulses present. Negative for: calf tenderness - Back Exam Back exam: paraspinal tenderness. absent: CVA tenderness (L), CVA tenderness (R) - Neurological Exam Neurological exam: Alert, Altered Additional comments: Pt has underlying dementia baseline, per family pts AOx2 is baseline for her. - Psychiatric Exam Psychiatric exam: Normal Affect, Normal Mood - Skin Skin Exam: Dry, Intact, Warm Results - Vital Signs Recent Vital Signs: Last Vital Signs Temp Pulse 67 03/29/18 10:04 Resp 17 03/29/18 09:25 BP 115/59 L 03/29/18 10:04 Pulse Ox - Labs Result Diagrams: 03/29/18 07:50 03/29/18 07:50 Labs: Laboratory Results - last 24 hr 03/29/18 03/29/18 07:50 07:50 WBC 7.1 RBC 2.98 L Hgb 9.2 L Hct 27.9 L MCV 93.6 MCH 30.9 MCHC 33.0 RDW 13.6 Plt Count 235 MPV 9.6 Gran % 44.5 L Lymph % (Auto) 41.5 H Luce % (Auto) 6.9 H Eos % (Auto) 6.5 H Baso % (Auto) 0.6 Gran # 3.18 Lymph # (Auto) 3.0 Luce # (Auto) 0.5 Eos # (Auto) 0.5 Baso # (Auto) 0.04 Sodium 139 Potassium 4.6 Chloride 109 H Carbon Dioxide 25 Anion Gap 10 BUN 26 H Creatinine 1.5 H Est GFR ( Amer) 42 Est GFR (Non-Af Amer) 35 Random Glucose 213 H Calcium 9.2 Total Bilirubin 0.8 AST 27 ALT 24 Alkaline Phosphatase 88 Total Protein 6.6 Albumin 3.7 Globulin 3.0 Albumin/Globulin Ratio 1.2 Assessment & Plan - Assessment and Plan (Free Text) Assessment: 63F w/ MT (s/p LCX angioplasty w/ balloon 2011) DM, CAD, HTN, HLD who was brought in by EMS on 03/22 w/ c/o of SOB; per ED documentation, patient was brought in by EMS after she was found wandering the streets; Upon arrival to ED she was found to have a blood glucose of >500. Pt was then medically managed and admitted to voluntary psych service. We are consulted for medical management of pts medical hx. Plan: 1) Hx of DM - Cont home dose of: levemir 30 units HS, humalog 10 units AC - may escalate coverage if glucose remains high - currently controlled - insulin sliding scale - A1c is 13.3 suggesting medical non compliance - Cont home gabapentin for neuropathy 2) ?Seizure history -started on keppra 500mg BID -per son Efe, patient is taking on keppra delivered by mail at home for seizure, which is not reported in the patient's pharmacy 3) Hx of CAD -continue ASA, plavix 4) Hx of HTN/HLD - Cont home lisinopril, lopressor - Will hold HCTZ at this time due to increasing Cr - Cont home Lipitor Thank you for consulting the medical service. Please reconsult if necessary in the future. <Jose Beard - Last Filed: 03/29/18 16:52> Meds - Medications Medications: Current Medications Acetaminophen (Tylenol 325mg Tab) 650 mg PO Q4H PRN PRN Reason: Pain, Mild (1-3) Last Admin: 03/29/18 13:11 Dose: 650 mg Al Hydrox/Mg Hydrox/Simethicone (Maalox Plus 30 Ml) 30 ml PO DAILY PRN PRN Reason: Upset Stomach Aspirin (Ecotrin) 81 mg PO DAILY [facility] Last Admin: 03/29/18 10:05 Dose: 81 mg Atorvastatin Calcium (Lipitor) 20 mg PO DIN [facility] Clopidogrel Bisulfate (Plavix) 75 mg PO DAILY [facility] Last Admin: 03/29/18 10:05 Dose: 75 mg Gabapentin (Neurontin) 300 mg PO DAILY [facility] Last Admin: 03/29/18 10:05 Dose: 300 mg Hydrochlorothiazide (Hydrodiuril) 25 mg PO DAILY [facility] Last Admin: 03/29/18 10:02 Dose: Not Given Insulin Detemir (Levemir) 30 unit SC HS [facility] Insulin Human Lispro (Humalog) 12 units SC AC [facility] Last Admin: 03/29/18 12:19 Dose: Not Given Insulin Human Lispro (Humalog Low) 0 units SC ACHS [facility]; Protocol Last Admin: 03/29/18 12:17 Dose: Not Given Levetiracetam (Keppra) 500 mg PO Q12 [facility] Last Admin: 03/29/18 06:42 Dose: 500 mg Lisinopril (Zestril) 10 mg PO DAILY [facility] Last Admin: 03/29/18 10:04 Dose: Not Given Magnesium Hydroxide (Milk Of Magnesia) 30 ml PO DAILY PRN PRN Reason: Constipation Metoprolol Tartrate (Lopressor) 50 mg PO DAILY [facility] Last Admin: 03/29/18 10:03 Dose: Not Given Montelukast Sodium (Singulair) 10 mg PO HS [facility] Last Admin: 03/28/18 23:15 Dose: 10 mg Nbizy-3-Uoar Ethyl Esters (Lovaza) 1 gm PO DAILY [facility] Last Admin: 03/29/18 10:05 Dose: 1 gm Pantoprazole Sodium (Protonix Ec Tab) 40 mg PO ACB [facility] Last Admin: 03/29/18 10:04 Dose: 40 mg Quetiapine Fumarate (Seroquel) 12.5 mg PO HS [facility]; Protocol Last Admin: 03/28/18 23:16 Dose: 12.5 mg Sertraline HCl (Zoloft) 50 mg PO DAILY [facility] Last Admin: 03/29/18 10:05 Dose: 50 mg Zolpidem Tartrate (Ambien) 5 mg PO HS PRN; Protocol PRN Reason: Insomnia Last Admin: 03/28/18 23:17 Dose: 5 mg Results - Vital Signs Recent Vital Signs: Last Vital Signs Temp Pulse 67 03/29/18 10:04 Resp 17 03/29/18 09:25 BP 115/59 L 03/29/18 10:04 Pulse Ox - Labs Result Diagrams: 03/29/18 07:50 03/29/18 07:50 Labs: Laboratory Results - last 24 hr 03/29/18 03/29/18 07:50 07:50 WBC 7.1 RBC 2.98 L Hgb 9.2 L Hct 27.9 L MCV 93.6 MCH 30.9 MCHC 33.0 RDW 13.6 Plt Count 235 MPV 9.6 Gran % 44.5 L Lymph % (Auto) 41.5 H Luce % (Auto) 6.9 H Eos % (Auto) 6.5 H Baso % (Auto) 0.6 Gran # 3.18 Lymph # (Auto) 3.0 Luce # (Auto) 0.5 Eos # (Auto) 0.5 Baso # (Auto) 0.04 Sodium 139 Potassium 4.6 Chloride 109 H Carbon Dioxide 25 Anion Gap 10 BUN 26 H Creatinine 1.5 H Est GFR ( Amer) 42 Est GFR (Non-Af Amer) 35 Random Glucose 213 H Calcium 9.2 Total Bilirubin 0.8 AST 27 ALT 24 Alkaline Phosphatase 88 Total Protein 6.6 Albumin 3.7 Globulin 3.0 Albumin/Globulin Ratio 1.2 Attending/Attestation - Attestation I have personally seen and examined this patient.: Yes I have fully participated in the care of the patient.: Yes I have reviewed all pertinent clinical information: Yes Notes (Text): 03/29/18 16:45 63 year old female with past medical history of CAD, diabetes, hypertension and dyslipidemia who presented initially with altered mental status; found to have elevated blood sugar which improved with insulin. She was seen by psychiatrist and admitted to inpatient psychiatric unit. Medical consultation was requested for medical management and follow up. Continue with levemir and humalog for diabetes. Continue with aspirin, plavix and lipitor for CAD. Creatinine slightly elevated; will hold HCTZ and lisinopril for now. Repeat labs in 1-2 days to monitor to follow. Thank you Dr. Rodriguez for allowing us to participate in the care of this pa tient. Jose Beard MD Hospitalist.
[2018-03-29] MEDS: Insulin Detemir 100 units/ml Vial (Levemir) SC SCH (21:32)
[2018-03-29] MEDS ORDERED: ZOLPIDEM TARTRATE 25 MG PO SCH (22:00)
[2018-03-29 22:35] LABS: URINE BILIRUBIN NEGATIVE (NEGATIVE); URINE BLOOD NEGATIVE (NEGATIVE); URINE GLUCOSE (UA) NEGATIVE (NEGATIVE); URINE LEUKOCYTE ESTERASE SMALL Leu/uL (NEGATIVE); URINE PROTEIN NEGATIVE mg/dL (<30 mg/dL); URINE UROBILINOGEN 0.2 E.U./dL (<1 E.U./dL)
[2018-03-29 22:44] LABS: URINE APPEARANCE CLEAR (CLEAR); URINE COLOR YELLOW (YELLOW)
[2018-03-29 23:18] LABS: URINE BACTERIA FEW /hpf; URINE RBC 0 - 2 /hpf (0-2)
--- NOTE | 2018-03-30 01:11 | CON ---
DATE: 03/29/2018 ENDOCRINOLOGY CONSULTATION ROOM: 519. HISTORY OF PRESENT ILLNESS: This is a 63-year-old female with known history of type 2 insulin-requiring diabetes, transferred here with concomitant generalized anxiety state as noted. She is being referred now for diabetic evaluation and management. PAST MEDICAL HISTORY: As mentioned above, history of type 2 insulin-requiring diabetes on the aforementioned drug combination of Humalog given as 12 units t.i.d. and Levemir at 30 units bedtime, history of diabetic polyneuropathy coronary artery disease with underlying peripheral arterial disease and vasculopathy. SOCIAL HISTORY: The patient has supportive family. No known substance use. FAMILY HISTORY: Positive for hypertension and diabetes. REVIEW OF SYSTEMS: Not possible at this time, but the chart has been reviewed in detail as noted. PHYSICAL EXAMINATION: GENERAL: This is an average built female, in no apparent distress. VITAL SIGNS: Blood pressure of 140/80; pulse of 70 beats per minute, regular; temperature 98; respirations 20; height is 4 feet 10 inches; weight is 181 pounds. HEENT: Head, normocephalic. Eyes anicteric with pink conjunctivae. Fundoscopy not possible at this time. Ears, nose and throat, otherwise normal. NECK: Supple. Thyroid gland is normal in size. No carotid bruits or cervical adenopathy. CARDIOPULMONARY: Some adynamic precordium. S1, S2 are rapid and regular. LUNGS: Clear to auscultation. ABDOMEN: Flat, soft with positive bowel sounds. EXTREMITIES: No peripheral edema. Pulses are +2 bilaterally. LABORATORY DATA: BUN of 26, sodium 139, potassium 4.6, chloride 109, CO2 of 25, glucose 213 and creatinine 1.5. ASSESSMENT: This is a 63-year-old female with uncontrolled and decompensated type 2 insulin-requiring diabetes, now being followed closely for metabolic management. She also has diabetic microvascular complications of polyneuropathy and nephropathy with diabetic macrovascular complications of coronary artery disease and peripheral arterial disease and vasculopathy. PLAN OF MANAGEMENT: We will continue the same basal and bolus insulin drug combination to allow for dose equilibration as ordered. We will reorder the Humalog given as 12 units t.i.d. before meals as ordered. We will add Levemir given as basal insulin at 30 units subcu at bedtime daily as given. We will continue also the low-dose correction scale using Humalog insulin as ordered. We will obtain serial chemistries and supplement accordingly as needed. We will follow. Mireya Lopez MD
[2018-03-30] MEDS: Omega-3-Acid Ethyl Esters 1 GM Cap PO SCH (10:21)
[2018-03-30] MEDS: Pantoprazole 40 mg EC Tab PO SCH (10:22)
[2018-03-30] MEDS: Insulin Lispro 1 UNITS/0.01 ML SC SCH ×3 (10:26→17:44)
[2018-03-30] MEDS: Insulin Lispro (humaLOG) LOW Coverage SC SCH ×4 (10:30→21:54)
--- NOTE | 2018-03-30 14:41 | PCM.PYCHPN ---
Psychiatric Progress Note - Psychiatric Progress Note Patient seen today, length of contact: 30 minutes Patient Chief Complaint: "I do not remember that well, I was staying home for years, all I did was watching TV, I was very depressed, as you know my 3 years ago" Problems Identified/Issues Discussed: Suicide/ homicide prevention, past psychiatric h/o, current psychiatric symptoms, medical problems, risk/benefits and alternatives of medications, med ications compliance, coping strategies, substance abuse h/o, relapse prevention, importance of follow up with psychiatrist and therapist, discharge plan. Medical Problems: Patient has multiple medical issues including hypertension, diabetes, rule out dementia, urinary tract infection, please see medical team notes for more detailed information. Diagnostic Results: 03/29/18 07:50 03/29/18 07:50 Lab Results 03/30/18 07:30: POC Glucose (mg/dL) 229 H 03/29/18 22:17: Urine Color Yellow, Urine Appearance Clear, Urine pH 6.0, Ur Specific [place] 1.020, Urine Protein Negative, Urine Glucose (UA) Negative, Urine Ketones Negative, Urine Blood Negative, Urine Nitrate Negative, Urine Bilirubin Negative, Urine Urobilinogen 0.2, Ur Leukocyte Esterase Small H, Urine RBC 0 - 2, Urine WBC 2 - 5, Ur Epithelial Cells 4 - 5, Urine Bacteria Few 03/29/18 21:18: POC Glucose (mg/dL) 90 03/29/18 16:47: POC Glucose (mg/dL) 224 H 03/29/18 11:16: POC Glucose (mg/dL) 107 03/29/18 07:50: Sodium 139, Potassium 4.6, Chloride 109 H, Carbon Dioxide 25, Anion Gap 10, BUN 26 H, Creatinine 1.5 H, Est GFR ( Amer) 42, Est GFR (Non-Af Amer) 35, Random Glucose 213 H, Calcium 9.2, Total Bilirubin 0.8, AST 27, ALT 24, Alkaline Phosphatase 88, Total Protein 6.6, Albumin 3.7, Globulin 3.0, Albumin/Globulin Ratio 1.2 03/29/18 07:50: WBC 7.1, RBC 2.98 L, Hgb 9.2 L, Hct 27.9 L, MCV 93.6, MCH 30.9, MCHC 33.0, RDW 13.6, Plt Count 235, MPV 9.6, Gran % 44.5 L, Lymph % (Auto) 41.5 H, Gage % (Auto) 6.9 H, Eos % (Auto) 6.5 H, Baso % (Auto) 0.6, Gran # 3.18, Lymp h # (Auto) 3.0, Gage # (Auto) 0.5, Eos # (Auto) 0.5, Baso # (Auto) 0.04 03/29/18 07:34: POC Glucose (mg/dL) 215 H Vital Signs Temp Pulse Resp BP 03/30/18 10:23 68 104/66 03/30/18 07:00 98.1 F 68 18 107/66 03/29/18 16:00 69 109/65 03/29/18 10:04 67 115/59 L 03/29/18 10:03 67 115/59 L 03/29/18 09:25 67 17 115/59 L 03/28/18 23:31 20 DSM 5 Symptoms Update: Shortly, patient is 63 year old female from [facility], multiple medical comorbidities such as PMH of [place] s/p LCX sten 2011, DM, CAD, HTN, HLD who was initially brought in by EMS on 03/22 w/ c/o of SOB; per ED documentation, patient was brought in by EMS after she was found wandering the streets, patient was found to have a blood glucose of >500, confused, did not know her date of , her address, and location. 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 Over the weekend patient was medically stabilized, patient presented to be depressed, hopeless, helpless, wanted to join her , patient requires further evaluation, stabilization, medications adjustment. Patient was seen today next to the nursing station, patient presented to be depressed, patient obviously has difficulty to stay focused and concentrate, patient does not remember this video games storywriter by name, patient refer herself as "old lady", patient still reported that she feels depressed and hopeless, reported that her sleep was "okay". Patient still appears to be tearful, hopeless, helpl ess. Patient reported that she tolerates medications well, no side effects observed or reported, aims 0, no EPS. Patient reported that he has memory problems, reported that she has difficulties to memorize things, patient made statement that she was staying at home watching TV for "many years". As per staff patient is depressed, withdrawn, not participating in unit activities, no agitation, no aggression, no behavioral disturbances. Impression: Major depressive disorder Rule out pseudodementia related to depression Rule out dementia, neurology team was called for evaluation. Medication Change: Yes (Zoloft increased) Medical Record Reviewed: Yes Consults ordered or reviewed: Medical consultation appreciated, neurology team was called to rule out pseudodementia versus dementia Mental Status Examination - Cognitive Function Orientation: Person, Place, Situation Memory: Impaired Attention: Poor Concentration: Poor Association: Loose Fund of Knowledge: Poor - Mood Mood: Depressed, Anxious - Affect Affect: Blunted, Flat - Formal Thought Process Formal Thought Process: Other (Patient appears at times confused, inconsistent with a history) - Suicidal Ideation Suicidal Ideation: Yes Plan: Patient denied any intent or plan, but still reported feeling of hopelessness, patient wants to join her - Homicidal Ideation Homicidal Ideation: No Goal/Treatment Plan - Goal/Treatment Plan Need for Continued Stay: Remain at risks for inpatient hospitalization, Severe depression anxiety, Discharge may exacerbated symptoms, Severe functional impairment Progress Toward Problem(s) and Goals/Treatment Plan: Milieu/structure/supportive therapy Medical consult appreciated, see medical team note for more detailed info SW consultation for discharge plan and social issues Med management Zoloft 75 mg daily for depression and anxiety Neurontin 300 mg 3 times a day for neuropathy Ambien 5 mg at the nighttime for insomnia Seroquel 12.5 mg at the nighttime for confusion and mood stabilization Family involvement Follow up on labs Will monitor closely Pt was educated about risk/benefits and alternatives of medications, coping strategies (safety plan, suicide prevention), relapse prevention, importance of follow up with psychiatrist and therapist, stay away from drugs/alcohol/smoking trademark is 0. He wanted to come back to speak with him before he leaves today he will consider house came he is okay I think he said he had signed a 48 at that he is still interested in leaving so we will little better his Estimated Date of D/C: 04/05/18
[2018-03-30] MEDS: Insulin Detemir 100 units/ml Vial (Levemir) SC SCH (21:42)
[2018-03-31 07:52] VITALS: RESP 20
--- NOTE | 2018-03-31 08:23 | PN ---
DATE: 03/30/2018 ENDO FOLLOWUP NOTE LOCATION: Room 519. SUBJECTIVE: This is a 63-year-old female with recent uncontrolled type 2 insulin-requiring diabetes, now transferred to Psychiatry for closer evaluation and management of persistent major depressive disorder. Her glycemic levels are fluctuating with the variability of her oral intake as noted. Her glucose levels today have ranged from 62-175 and 336 mg/dL. ASSESSMENT AND PLAN: So at this time, we will continue to modify basal and bolus insulin regimen with Humalog given as 12 units subcutaneous t.i.d. before meals and Levemir given as 30 units subcutaneous at bedtime daily as given. We will continue the low dose correction scale using Humalog insulin as ordered. We will follow and advise accordingly. Mireya Lopez MD
[2018-03-31 08:42] LABS: CALCIUM 9.5 mg/dL (8.4-10.5)
[2018-03-31] MEDS: Insulin Lispro 1 UNITS/0.01 ML SC SCH ×3 (09:06→16:41)
[2018-03-31] MEDS: Insulin Lispro (humaLOG) LOW Coverage SC SCH ×4 (09:06→21:40)
[2018-03-31] MEDS: Omega-3-Acid Ethyl Esters 1 GM Cap PO SCH (09:21)
[2018-03-31] MEDS: Pantoprazole 40 mg EC Tab PO SCH (09:22)
--- NOTE | 2018-03-31 09:27 | CP.PCM.CON ---
<Hipolito Cabrera - Last Filed: 03/31/18 15:29> History of Present Illness - History of Present Illness History of Present Illness: Neurology Consultation (Dr. Jewell's Service) CC: Dementia vs. Psuedodementia HPI: Mrs. 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 Patient was medically optimized after being found to have hyperglycemia vs. HHS and is now transferred to the [place] [place] [facility] [place] health [place]. Neurology was consulted to rule out dementia versus pseudodementia. Patient is currently oriented to person and event only and not to time nor place. She reports that she was originally admitted to the hospital after her son was worried about her. She reports that she lives with her son and that her daughter often visits to "h elp out with things". She sometimes cooks for herself but her children usually cook for her. The same situation exists with her finances but she reports that she makes final decisions when it comes to her finances. Otherwise, patient cleans after herself and is grossly independent with her ADL's. She does report that she was diagnosed with a seizure disorder within the past [address] Adan treats this for her. She currently denies any complaints including fever, chills, headache, neck pain/stiffness, chest pain, palpitations, SOB, cough, wheezing, abdominal pain, N/V/D/C, changes in urine output, or any new numbness/tingling/weakness of any extremity. PMH: As stated above PSH: Denies Family History: Denies Social History: Denies any tobacco, alcohol or illicit drug use Allergies: NKDA Home Medications: Reviewed; As per MAR PMD: Dr. Trisha Jo Review of Systems - Review of Systems Review of Systems: As stated in HPI, otherwise negative Past Patient History - Infectious Disease Hx of Infectious Diseases: None - Past Social History Smoking Status: Unknown If Ever Smoked - CARDIAC Hx Cardiac Disorders: No - NEUROLOGICAL Hx Neurological Disorder: No Hx Paralysis: No - HEENT Hx HEENT Problems: No - RENAL Hx Chronic Kidney Disease: No - ENDOCRINE/METABOLIC Hx Diabetes Mellitus Type 2: Yes - HEMATOLOGICAL/ONCOLOGICAL Hx Blood Transfusions: No Hx Blood Transfusion Reaction: No - INTEGUMENTARY Hx Dermatological Problems: No - MUSCULOSKELETAL/RHEUMATOLOGICAL Hx Musculoskeletal Disorders: Yes - GASTROINTESTINAL Hx Gastrointestinal Disorders: No - GENITOURINARY/GYNECOLOGICAL Hx Genitourinary Disorders: No - PSYCHIATRIC Hx Depression: Yes Hx Emotional Abuse: No Hx Physical Abuse: No Hx Substance Use: No - SURGICAL HISTORY Hx Surgeries: Yes - ANESTHESIA Hx Anesthesia Reactions: No Hx Malignant Hyperthermia: No Meds Allergies/Adverse Reactions: Allergies Allergy/AdvReac Type Severity Reaction Status Date / Time No Known Allergies Allergy Verified 03/29/18 00:09 - Medications Medications: Current Medications Acetaminophen (Tylenol 325mg Tab) 650 mg PO Q4H PRN PRN Reason: Pain, Mild (1-3) Last Admin: 03/30/18 19:49 Dose: 650 mg Al Hydrox/Mg Hydrox/Simethicone (Maalox Plus 30 Ml) 30 ml PO DAILY PRN PRN Reason: Upset Stomach Aspirin (Ecotrin) 81 mg PO DAILY [facility] Last Admin: 03/30/18 10:22 Dose: 81 mg Atorvastatin Calcium (Lipitor) 20 mg PO DIN [facility] Last Admin: 03/30/18 17:46 Dose: 20 mg Clopidogrel Bisulfate (Plavix) 75 mg PO DAILY [facility] Last Admin: 03/30/18 10:22 Dose: 75 mg Gabapentin (Neurontin) 300 mg PO DAILY [facility] Last Admin: 03/30/18 10:22 Dose: 300 mg Hydrochlorothiazide (Hydrodiuril) 25 mg PO DAILY [facility] Last Admin: 03/29/18 10:02 Dose: Not Given Insulin Detemir (Levemir) 30 unit SC HS [facility] Last Admin: 03/30/18 21:42 Dose: 30 unit Insulin Human Lispro (Humalog) 12 units SC AC [facility] Last Admin: 03/31/18 09:06 Dose: 12 unit Insulin Human Lispro (Humalog Low) 0 units SC ACHS [facility]; Protocol Last Admin: 03/31/18 09:06 Dose: Not Given Levetiracetam (Keppra) 500 mg PO Q12 [facility] Last Admin: 03/31/18 05:18 Dose: 500 mg Lisinopril (Zestril) 10 mg PO DAILY [facility] Last Admin: 03/29/18 10:04 Dose: Not Given Magnesium Hydroxide (Milk Of Magnesia) 30 ml PO DAILY PRN PRN Reason: Constipation Metoprolol Tartrate (Lopressor) 50 mg PO DAILY [facility] Last Admin: 03/30/18 10:23 Dose: 50 mg Montelukast Sodium (Singulair) 10 mg PO HS [facility] Last Admin: 03/30/18 21:41 Dose: 10 mg [id number] Ethyl Esters (Lovaza) 1 gm PO DAILY [facility] Last Admin: 03/30/18 10:21 Dose: 1 gm Pantoprazole Sodium (Protonix Ec Tab) 40 mg PO ACB [facility] Last Admin: 03/30/18 10:22 Dose: 40 mg Quetiapine Fumarate (Seroquel) 12.5 mg PO HS [facility]; Protocol Last Admin: 03/30/18 21:41 Dose: 12.5 mg Sertraline HCl (Zoloft) 75 mg PO DAILY [facility] Zolpidem Tartrate (Ambien) 5 mg PO HS PRN; Protocol PRN Reason: Insomnia Last Admin: 03/30/18 21:45 Dose: 5 mg Physical Exam - Constitutional Appears: Non-toxic, No Acute Distress - Head Exam Head Exam: ATRAUMATIC, NORMOCEPHALIC - Eye Exam Eye Exam: EOMI, Normal appearance, PERRL. absent: Conjunctival injection, Nystagmus, Periorbital swelling, Periorbital tenderness, Scleral icterus Pupil Exam: NORMAL ACCOMODATION. absent: Fixed, Irregular, Miosis, Mydriatic, PERRL, Unequal - ENT Exam ENT Exam: Mucous Membranes Moist, Normal Exam - Neck Exam Neck exam: Positive for: Full Rom, Normal Inspection. Negative for: Lymphadenopathy, Meningismus, Tenderness, Thyromegaly - Respiratory Exam Respiratory Exam: Clear to Auscultation Bilateral, NORMAL BREATHING PATTERN - Cardiovascular Exam Cardiovascular Exam: REGULAR RHYTHM - GI/Abdominal Exam GI & Abdominal Exam: Normal Bowel Sounds, Soft. absent: Tenderness - Extremities Exam Extremities exam: Positive for: normal capillary refill, pedal pulses present. Negative for: calf tenderness, joint swelling, pedal edema, tenderness - Neurological Exam Neurological exam: Alert, CN II-XII Intact, Reflexes Normal Additional comments: SMMSE Score: 26/30 - Expanded Neurological Exam Expanded Patient oriented to: person Cranial nerves: Tongue Deviation: Normal Ataxia: No Cerebellar Function: Finger to Nose: Normal, Heel to [place]: Normal Sensory exam: Lower Extremity 2 Point Discrimination: Normal, Lower Extremity Light Touch: Normal, Upper Extremity 2 Point Discrimination: Normal, Upper Extremity Light Touch: Normal Neuro motor strength exam: Left Upper Extremity: 4, Right Upper Extremity: 4, Left Lower Extremity: 4, Right Lower Extremity: 4 Coma Scale Eye Opening: SPONTANEOUS Coma Scale Motor Response: OBEYS COMMANDS Coma Scale Verbal: Confused Coma Scale Total: 14 - Psychiatric Exam Psychiatric exam: Depressed - Skin Skin Exam: Dry, Warm Results - Vital Signs Recent Vital Signs: Last Vital Signs Temp 98.1 F 03/31/18 07:51 Pulse 59 L 03/31/18 07:51 Resp 20 03/31/18 07:51 BP 132/72 03/31/18 07:51 Pulse Ox - Labs Result Diagrams: 03/29/18 07:50 03/31/18 08:26 Labs: Laboratory Results - last 24 hr 03/30/18 03/30/18 03/30/18 11:17 11:59 14:08 Sodium Potassium Chloride Carbon Dioxide Anion Gap BUN Creatinine Est GFR ( Amer) Est GFR (Non-Af Amer) POC Glucose (mg/dL) 336 H 175 H 62 L Random Glucose Calcium 03/30/18 03/30/18 03/31/18 16:26 21:33 08:26 Sodium 140 Potassium 5.3 H Chloride 108 H Carbon Dioxide 26 Anion Gap 11 BUN 27 H Creatinine 1.4 H Est GFR ( Amer) 46 Est GFR (Non-Af Amer) 38 POC Glucose (mg/dL) 175 H 336 H Random Glucose 191 H Calcium 9.5 Assessment & Plan - Assessment and Plan (Free Text) Assessment: 63 year old female with a past medical history significant for CAD, HTN, HLD, IDDM2, 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 Patient was medically optimized after being found to have hyperglycemia vs. HHS and is now transferred to the B[facility] at [facility] for mental health optimization. Neurology was consulted to rule out dementia versus pseudodementia. Plan: -Given Keppra can cause worsening of depression, we will taper the patient off of this Keppra as ordered and get a regular EEG to determine patients need for AEM's -We will also start patient on Vitamin B12 supplementation -Further recommendations as per Dr. Jewell Patient seen and case discussed with attending, Dr. Jewell. Hipolito Cabrera PGY2 - Date & Time Date: 03/31/18 Time: 09:29 <Karen Jewell - Last Filed: 04/01/18 17:43> Meds - Medications Medications: Current Medications Acetaminophen (Tylenol 325mg Tab) 650 mg PO Q4H PRN PRN Reason: Pain, Mild (1-3) Last Admin: 04/01/18 12:29 Dose: 650 mg Al Hydrox/Mg Hydrox/Simethicone (Maalox Plus 30 Ml) 30 ml PO DAILY PRN PRN Reason: Upset Stomach Aspirin (Ecotrin) 81 mg PO DAILY [facility] Last Admin: 04/01/18 09:34 Dose: 81 mg Atorvastatin Calcium (Lipitor) 20 mg PO DIN [facility] Last Admin: 04/01/18 17:16 Dose: 20 mg Clopidogrel Bisulfate (Plavix) 75 mg PO DAILY [facility] Last Admin: 04/01/18 09:34 Dose: 75 mg Cyanocobalamin (Vitamin B12 1000 Mcg Tab) 1,000 mcg PO DAILY [facility] Last Admin: 04/01/18 09:33 Dose: 1,000 mcg Gabapentin (Neurontin) 300 mg PO DAILY [facility] Last Admin: 04/01/18 09:33 Dose: 300 mg Hydrochlorothiazide (Hydrodiuril) 25 mg PO DAILY [facility] Last Admin: 04/01/18 09:34 Dose: 25 mg Ibuprofen (Motrin Tab) 400 mg PO Q4H PRN PRN Reason: Pain, Mild (1-3) Last Admin: 04/01/18 17:20 Dose: 400 mg Insulin Detemir (Levemir) 30 unit SC HS [facility] Last Admin: 03/31/18 21:41 Dose: 30 unit Insulin Human Lispro (Humalog) 12 units SC AC [facility] Last Admin: 04/01/18 17:19 Dose: 12 unit Insulin Human Lispro (Humalog Low) 0 units SC ACHS [facility]; Protocol Last Admin: 04/01/18 17:17 Dose: Not Given Levetiracetam (Keppra) 250 mg PO Q12 [facility] Stop: 04/02/18 06:01 Last Admin: 04/01/18 17:16 Dose: 250 mg Lisinopril (Zestril) 10 mg PO DAILY [facility] Last Admin: 03/29/18 10:04 Dose: Not Given Magnesium Hydroxide (Milk Of Magnesia) 30 ml PO DAILY PRN PRN Reason: Constipation Metoprolol Tartrate (Lopressor) 25 mg PO BID [facility] Last Admin: 04/01/18 17:16 Dose: 25 mg Montelukast Sodium (Singulair) 10 mg PO HS [facility] Last Admin: 03/31/18 21:40 Dose: 10 mg [id number] Ethyl Esters (Lovaza) 1 gm PO DAILY [facility] Last Admin: 04/01/18 09:47 Dose: 1 gm Pantoprazole Sodium (Protonix Ec Tab) 40 mg PO ACB [facility] Last Admin: 04/01/18 09:40 Dose: 40 mg Sertraline HCl (Zoloft) 100 mg PO DAILY [facility] Zolpidem Tartrate (Ambien) 5 mg PO HS PRN; Protocol PRN Reason: Insomnia Last Admin: 03/30/18 21:45 Dose: 5 mg Results - Vital Signs Recent Vital Signs: Last Vital Signs Temp 98.5 F 04/01/18 07:19 Pulse 61 04/01/18 17:16 Resp 20 04/01/18 07:19 BP 149/76 04/01/18 17:16 Pulse Ox - Labs Result Diagrams: 03/29/18 07:50 03/31/18 08:26 Labs: Laboratory Results - last 24 hr 03/31/18 03/31/18 04/01/18 16:13 21:01 07:35 POC Glucose (mg/dL) 111 H 327 H 163 H 04/01/18 04/01/18 04/01/18 11:24 11:41 16:03 POC Glucose (mg/dL) 66 96 292 H Assessment & Plan - Assessment and Plan (Free Text) Plan: MIss 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 After she has tapered keppra, EEG will be helpful. I examined the patient independently and with the resident and agree with the assessment and plan. Dr. Karen Mcdermott MD DPN [facility] Neurology
--- NOTE | 2018-03-31 14:07 | PN ---
DATE: 03/31/2018 ENDO FOLLOW UP NOTE LOCATION: Psychiatry room 519. SUBJECTIVE: This is a 63-year-old female with recent uncontrolled type 2 insulin-requiring diabetes now being followed closely for metabolic management. Her glycemic levels are fluctuating but improved and the glucose values overnight have ranged from 175-187 and 336 mg/dl. Her chemistry showed a BUN of 27, sodium 140, potassium 5.3, chloride 108, CO2 of 26, glucose 191 and creatinine 1.4. PLAN: So at this time, we will continue the same basal and bolus insulin regimen to allow for dose equilibration and keep her on the Levemir at 30 units subcu at bedtime daily as given. We will continue also the Humalog given as 12 units subcu 3 times daily before meals as ordered. We will continue also her low-dose correction scale using Humalog insulin to obviate hypoglycemia and detailed orders have been given. We will follow and advise accordingly. Mireya Lopez MD
--- NOTE | 2018-03-31 14:21 | PCM.PYCHPN ---
Psychiatric Progress Note - Psychiatric Progress Note Patient seen today, length of contact: 30 minutes Patient Chief Complaint: "I want to watch movie, soap opera..." Problems Identified/Issues Discussed: Suicide/ homicide prevention, past psychiatric h/o, current psychiatric symptoms, medical problems, risk/benefits and alternatives of medications, medications compliance, coping strategies, substance abuse h/o, relapse prevention, importance of follow up with psychiatrist and therapist, discharge plan. Medical Problems: Patient has multiple medical issues including hypertension, diabetes, rule out dementia, urinary tract infection, please see medical team notes for more detailed information. Diagnostic Results: 03/29/18 07:50 03/29/18 07:50 Lab Results 03/30/18 07:30: POC Glucose (mg/dL) 229 H 03/29/18 22:17: Urine Color Yellow, Urine Appearance Clear, Urine pH 6.0, Ur Specific [place] 1.020, Urine Protein Negative, Urine Glucose (UA) Negative, Urine Ketones Negative, Urine Blood Negative, Urine Nitrate Negative, Urine Bilirubin Negative, Urine Urobilinogen 0.2, Ur Leukocyte Esterase Small H, Urine RBC 0 - 2, Urine WBC 2 - 5, Ur Epithelial Cells 4 - 5, Urine Bacteria Few 03/29/18 21:18: POC Glucose (mg/dL) 90 03/29/18 16:47: POC Glucose (mg/dL) 224 H 03/29/18 11:16: POC Glucose (mg/dL) 107 03/29/18 07:50: Sodium 139, Potassium 4.6, Chloride 109 H, Carbon Dioxide 25, Anion Gap 10, BUN 26 H, Creatinine 1.5 H, Est GFR ( Amer) 42, Est GFR (Non-Af Amer) 35, Random Glucose 213 H, Calcium 9.2, Total Bilirubin 0.8, AST 27, ALT 24, Alkaline Phosphatase 88, Total Protein 6.6, Albumin 3.7, Globulin 3.0, Albumin/Globulin Ratio 1.2 03/29/18 07:50: WBC 7.1, RBC 2.98 L, Hgb 9.2 L, Hct 27.9 L, MCV 93.6, MCH 30.9, MCHC 33.0, RDW 13.6, Plt Count 235, MPV 9.6, Gran % 44.5 L, Lymph % (Auto) 41.5 H, [place] % (Auto) 6.9 H, Eos % (Auto) 6.5 H, Baso % (Auto) 0.6, Gran # 3.18, Lymph # (Auto) 3.0, [place] # (Auto) 0.5, Eos # (Auto) 0.5, Baso # (Auto) 0.04 03/29/18 07:34: POC Glucose (mg/dL) 215 H Vital Signs Temp Pulse Resp BP 03/30/18 10:23 68 104/66 03/30/18 07:00 98.1 F 68 18 107/66 03/29/18 16:00 69 109/65 03/29/18 10:04 67 115/59 L 03/29/18 10:03 67 115/59 L 03/29/18 09:25 67 17 115/59 L 03/28/18 23:31 20 DSM 5 Symptoms Update: Shortly, patient is 63 year old female from [facility], multiple medical comorbidities such as PMH of [place] s/p LCX sten 2011, DM, CAD, HTN, HLD who was initially brought in by EMS on 03/22 w/ c/o of SOB; per ED documentation, gladys hyatt was brought in by EMS after she was found wandering the streets, patient was found to have a blood glucose of >500, confused, did not know her date of , her address, and location. Patient was admitted on the medical side, this investment underwriter got involved in to the patient care because of depression, confusion, please see initial consultation for more detailed information. Over the weekend patient was medically stabilized, patient presented to be depressed, hopeless, helpless, wanted to join her , patient requires further evaluation, stabilization, medications adjustment. Patient was seen today next to the nursing station, patient presented to be depressed, easily tearful, patient was talking about her , about her daily routine by, "I am staying at home all day long, I do not know for how many years I stayed home, I was watching TV, I like [place]vel[place] movies". Patient obviously has difficulty to stay focused and concentrate, patient does not remember this investment underwriter by name, patient was seen by neurology team, awaiting for official note. Patient reported that she still feels depressed, hopeless, helpless, patient reported that she is still praying to God "God, please take me, I do not want to live anymore" Patient reported that she tolerates medications well, no side effects observed or reported, aims 0, no EPS. Patient reported that he has memory problems, reported that she has difficulties to memorize things, patient made statement that she was staying at home watching TV for "many years". As per staff patient is depressed, withdrawn, not participating in unit activities, no agitation, no aggression, no behavioral disturbances. Impression: Major depressive disorder Rule out pseudodementia related to depression Rule out dementia, neurology team was called for evaluation. Medication Change: Yes (Zoloft increased) Medical Record Reviewed: Yes Mental Status Examination - Cognitive Function Orientation: Person, Place, Situation Memory: Impaired Attention: Poor Concentration: Poor Association: Loose Fund of Knowledge: Poor - Mood Mood: Depressed, Anxious - Affect Affect: Blunted, Flat - Formal Thought Process Formal Thought Process: Other (Patient appears at times confused, inconsistent with a history) - Suicidal Ideation Suicidal Ideation: Yes - Homicidal Ideation Homicidal Ideation: No Goal/Treatment Plan - Goal/Treatment Plan Need for Continued Stay: Remain at risks for inpatient hospitalization, Severe depression anxiety, Discharge may exacerbated symptoms, Severe functional impairment Progress Toward Problem(s) and Goals/Treatment Plan: Milieu/structure/supportive therapy Medical consult appreciated, see medical team note for more detailed info SW consultation for discharge plan and social issues Med management Zoloft 75 mg daily for depression and anxiety Neurontin 300 mg 3 times a day for neuropathy Ambien 5 mg at the nighttime for insomnia Seroquel 12.5 mg at the nighttime for confusion and mood stabilization Family involvement Follow up on labs Will monitor closely Pt was educated about risk/benefits and alternatives of medications, coping strategies (safety plan, suicide prevention), relapse prevention, importance of follow up with psychiatrist and therapist, stay away from drugs/alcohol/smoking trademark is 0. He wanted to come back to speak with him before he leaves today he will consider house came he is okay I think he said he had signed a 48 at that he is still interested in leaving so we will little better his Estimated Date of D/C: 04/05/18
--- NOTE | 2018-03-31 15:20 | CP.PCM.PCO ---
Subjective - Physician Review Subjective (Free Text): 03/31/18 15:17 Patient blood work evaluated. Will restart HCTZ which will help with hyperkalemia. Creatinine is at baseline. Adjusted Metoprolol to 25mg BID with holding parameters (Hold if SBP<100 or HR <60). Blood sugars are monitored as per Endocrinology. Will sign off at this time. Case reviewed and discussed with Dr. Beard. Mckenzie De La Cruz PGY3
[2018-03-31] MEDS: Insulin Detemir 100 units/ml Vial (Levemir) SC SCH (21:41)
[2018-04-01] MEDS: Insulin Lispro 1 UNITS/0.01 ML SC SCH ×3 (08:40→17:19)
[2018-04-01] MEDS: Insulin Lispro (humaLOG) LOW Coverage SC SCH ×4 (08:49→21:25)
[2018-04-01] MEDS: Pantoprazole 40 mg EC Tab PO SCH (09:40)
[2018-04-01] MEDS: Omega-3-Acid Ethyl Esters 1 GM Cap PO SCH (09:47)
--- NOTE | 2018-04-01 14:36 | PCM.PYCHPN ---
Psychiatric Progress Note - Psychiatric Progress Note Patient seen today, length of contact: 30 minutes Patient Chief Complaint: "i feel little better, i feel fine..." Problems Identified/Issues Discussed: Suicide/ homicide prevention, past psychiatric h/o, current psychiatric symptoms, medical problems, risk/benefits and alternatives of medications, medications compliance, coping strategies, substance abuse h/o, relapse prevention, importance of follow up with psychiatrist and therapist, discharge plan. Medical Problems: Patient has multiple medical issues including hypertension, diabetes, rule out dementia, urinary tract infection, please see medical team notes for more detailed information. Diagnostic Results: 03/29/18 07:50 03/29/18 07:50 Lab Results 03/30/18 07:30: POC Glucose (mg/dL) 229 H 03/29/18 22:17: Urine Color Yellow, Urine Appearance Clear, Urine pH 6.0, Ur Specific [place] 1.020, Urine Protein Negative, Urine Glucose (UA) Negative, Urine Ketones Negative, Urine Blood Negative, Urine Nitrate Negative, Urine Bilirubin Negative, Urine Urobilinogen 0.2, Ur Leukocyte Esterase Small H, Urine RBC 0 - 2, Urine WBC 2 - 5, Ur Epithelial Cells 4 - 5, Urine Bacteria Few 03/29/18 21:18: POC Glucose (mg/dL) 90 03/29/18 16:47: POC Glucose (mg/dL) 224 H 03/29/18 11:16: POC Glucose (mg/dL) 107 03/29/18 07:50: Sodium 139, Potassium 4.6, Chloride 109 H, Carbon Dioxide 25, Anion Gap 10, BUN 26 H, Creatinine 1.5 H, Est GFR ( Amer) 42, Est GFR (Non-Af Amer) 35, Random Glucose 213 H, Calcium 9.2, Total Bilirubin 0.8, AST 27, ALT 24, Alkaline Phosphatase 88, Total Protein 6.6, Albumin 3.7, Globulin 3.0, Albumin/Globulin Ratio 1.2 03/29/18 07:50: WBC 7.1, RBC 2.98 L, Hgb 9.2 L, Hct 27.9 L, MCV 93.6, MCH 30.9, MCHC 33.0, RDW 13.6, Plt Count 235, MPV 9.6, Gran % 44.5 L, Lymph % (Auto) 41.5 H, [place] % (Auto) 6.9 H, Eos % (Auto) 6.5 H, Baso % (Auto) 0.6, Gran # 3.18, Lymph # (Auto) 3.0, [place] # (Auto) 0.5, Eos # (Auto) 0.5, Baso # (Auto) 0.04 03/29/18 07:34: POC Glucose (mg/dL) 215 H Vital Signs Temp Pulse Resp BP 03/30/18 10:23 68 104/66 03/30/18 07:00 98.1 F 68 18 107/66 03/29/18 16:00 69 109/65 03/29/18 10:04 67 115/59 L 03/29/18 10:03 67 115/59 L 03/29/18 09:25 67 17 115/59 L 03/28/18 23:31 20 DSM 5 Symptoms Update: Shortly, patient is 63 year old female from [facility], multiple medical comorbidities such as PMH of [place] s/p LCX sten 2011, DM, CAD, HTN, HLD who was initially brought in by EMS on 03/22 w/ c/o of SOB; per ED documentation, patient was brought in by EMS after she was found wandering the streets, patient was found to have a blood glucose of >500, confused, did not know her date of , her address, and location. Patient was admitted on the medical side, this remote mortgage underwriter got involved in to the patient care because of depression, c onfusion, please see initial consultation for more detailed information. Over the weekend patient was medically stabilized, patient presented to be depressed, hopeless, helpless, wanted to join her , patient requires further evaluation, stabilization, medications adjustment. Patient was seen today next to the nursing station, patient presented with some improvement in her affect's reactivity, pt was able to smile couple of times. pt said that she slept better, pt is less confused. as per SW family is obtaining medicaid and pt might be eligible to adult day treatment programs. Patient obviously has difficulty to stay focused and concentrate, patient does not remember this remote mortgage underwriter by name, patient was seen by neurology team, awaiting for official note. Patient reported that she still feels more optimistic and she wants to see "my grand daughter she is six days old". Patient reported that she tolerates medications well, no side effects observed or reported, aims 0, no EPS. Patient reported that he has memory problems, reported that she has difficulties to memorize things, patient made statement that she was staying at home watching TV for "many years". As per staff patient is depressed, withdrawn, not participating in unit activities, no agitation, no aggression, no behavioral disturbances. Impression: Major depressive disorder Rule out pseudodementia related to depression Rule out dementia, neurology team was called for evaluation. Medication Change: Yes (Zoloft increased) Medical Record Reviewed: Yes Consults ordered or reviewed: Medical consultation appreciated, neurology team was called to rule out pseudodementia versus dementia Mental Status Examination - Cognitive Function Orientation: Person, Place, Situation Memory: Impaired Attention: Poor (talita improvment) Concentration: Poor (some improvement) Association: Loose (some improvement) Fund of Knowledge: WNL - Mood Mood: Depressed ("I feel little better"), Anxious - Affect Affect: Constricted (but reactive, mood congruent) - Speech Speech: Appropriate - Formal Thought Process Formal Thought Process: No Impairment (pt presented more coherent) - Suicidal Ideation Suicidal Ideation: No Plan: pt adamantly denied thoughts of harming self or others - Homicidal Ideation Homicidal Ideation: No Goal/Treatment Plan - Goal/Treatment Plan Need for Continued Stay: Remain at risks for inpatient hospitalization, Severe depression anxiety, Discharge may exacerbated symptoms, Severe functional im pairment Progress Toward Problem(s) and Goals/Treatment Plan: Milieu/structure/supportive therapy Medical consult appreciated, see medical team note for more detailed info SW consultation for discharge plan and social issues Med management Zoloft 100 mg daily for depression and anxiety Neurontin 300 mg 3 times a day for neuropathy Ambien 5 mg at the nighttime for insomnia Seroquel 12.5 mg at the nighttime for confusion and mood stabilization Family involvement Follow up on labs Will monitor closely Pt was educated about risk/benefits and alternatives of medications, coping strategies (safety plan, suicide prevention), relapse prevention, importance of follow up with psychiatrist and therapist, stay away from drugs/alcohol/smoking trademark is 0. He wanted to come back to speak with him before he leaves today he will consider house came he is okay I think he said he had signed a 48 at that he is still interested in leaving so we will little better his Estimated Date of D/C: 04/02/18
[2018-04-01] MEDS: Insulin Detemir 100 units/ml Vial (Levemir) SC SCH (21:29)
--- NOTE | 2018-04-02 08:22 | PN ---
DATE: 04/01/2018 LOCATION: Room 519. SUBJECTIVE: This is a 63-year-old female with recent uncontrolled type 2 insulin-requiring diabetes, now being followed closely for metabolic management. Her glycemic levels are fluctuating but improved as noted. She is undergoing psychiatric management for recent major depressive disorder, especially after the demise of her . LABORATORY DATA: Latest chemistries showed a BUN of 27, sodium 140, potassium 5.3, chloride 108, CO2 of 26, glucose 191 and creatinine 1.4. Her glucose values have ranged from 111 to 183 and 327 at bedtime. PLAN: So, at this time, we will continue the same basal and bolus insulin regimen to allow for dose equilibration and keep her on the Humalog given as 12 units t.i.d. before meals as ordered. We will continue the Levemir given as 30 units subcu at bedtime daily as given. We will titrate incrementally as indicate to optimize metabolic control. We will follow. Mireya Lopez MD
[2018-04-02] MEDS: Omega-3-Acid Ethyl Esters 1 GM Cap PO SCH (08:32)
[2018-04-02] MEDS: Insulin Lispro 1 UNITS/0.01 ML SC SCH ×3 (08:35→18:00)
[2018-04-02] MEDS: Insulin Lispro (humaLOG) LOW Coverage SC SCH ×4 (08:36→21:57)
[2018-04-02] MEDS: Pantoprazole 40 mg EC Tab PO SCH (10:24)
--- NOTE | 2018-04-02 10:46 | CP.PCM.PN ---
Subjective - Date & Time of Evaluation Date of Evaluation: 04/02/18 Time of Evaluation: 10:46 - Subjective Subjective: Neurology Progress Note: Patient seen and assessed at bedside in BHU at [facility]. No acute events overnight noted. Patient denies any complaints at this time and 12 point ROS unremarkable. Objective - Vital Signs/Intake and Output Vital Signs (last 24 hours): Temp Pulse Resp BP Pulse Ox 98.5 F 66 20 148/70 04/02/18 07:29 04/02/18 08:33 04/02/18 07:29 04/02/18 08:33 - Medications Medications: Current Medications Acetaminophen (Tylenol 325mg Tab) 650 mg PO Q4H PRN PRN Reason: Pain, Mild (1-3) Last Admin: 04/01/18 23:48 Dose: 650 mg Al Hydrox/Mg Hydrox/Simethicone (Maalox Plus 30 Ml) 30 ml PO DAILY PRN PRN Reason: Upset Stomach Aspirin (Ecotrin) 81 mg PO DAILY [facility] Last Admin: 04/02/18 08:32 Dose: 81 mg Atorvastatin Calcium (Lipitor) 20 mg PO DIN [facility] Last Admin: 04/01/18 17:16 Dose: 20 mg Clopidogrel Bisulfate (Plavix) 75 mg PO DAILY [facility] Last Admin: 04/02/18 08:32 Dose: 75 mg Cyanocobalamin (Vitamin B12 1000 Mcg Tab) 1,000 mcg PO DAILY [facility] Last Admin: 04/02/18 08:35 Dose: 1,000 mcg Gabapentin (Neurontin) 300 mg PO DAILY [facility] Last Admin: 04/02/18 08:34 Dose: 300 mg Hydrochlorothiazide (Hydrodiuril) 25 mg PO DAILY [facility] Last Admin: 04/02/18 08:32 Dose: 25 mg Ibuprofen (Motrin Tab) 400 mg PO Q4H PRN PRN Reason: Pain, Mild (1-3) Last Admin: 04/02/18 08:33 Dose: 400 mg Insulin Detemir (Levemir) 30 unit SC HS [facility] Last Admin: 04/01/18 21:29 Dose: 30 unit Insulin Human Lispro (Humalog) 12 units SC AC [facility] Last Admin: 04/02/18 08:35 Dose: 12 unit Insulin Human Lispro (Humalog Low) 0 units SC ACHS [facility]; Protocol Last Admin: 04/02/18 08:36 Dose: Not Given Lisinopril (Zestril) 10 mg PO DAILY [facility] Last Admin: 03/29/18 10:04 Dose: Not Given Magnesium Hydroxide (Milk Of Magnesia) 30 ml PO DAILY PRN PRN Reason: Constipation Metoprolol Tartrate (Lopressor) 25 mg PO BID [facility] Last Admin: 04/02/18 08:33 Dose: 25 mg Montelukast Sodium (Singulair) 10 mg PO HS [facility] Last Admin: 04/01/18 21:28 Dose: 10 mg [id number] Ethyl Esters (Lovaza) 1 gm PO DAILY [facility] Last Admin: 04/02/18 08:32 Dose: 1 gm Pantoprazole Sodium (Protonix Ec Tab) 40 mg PO ACB [facility] Last Admin: 04/02/18 10:24 Dose: 40 mg Sertraline HCl (Zoloft) 100 mg PO DAILY [facility] Last Admin: 04/02/18 08:35 Dose: 100 mg Zolpidem Tartrate (Ambien) 5 mg PO HS PRN; Protocol PRN Reason: Insomnia Last Admin: 04/01/18 21:28 Dose: 5 mg - Labs Labs: 03/29/18 07:50 03/31/18 08:26 - Constitutional Appears: Non-toxic, No Acute Distress - Head Exam Head Exam: ATRAUMATIC, NORMOCEPHALIC - Eye Exam Eye Exam: EOMI, Normal appearance, PERRL Pupil Exam: NORMAL ACCOMODATION - ENT Exam ENT Exam: Mucous Membranes Moist, Normal Exam - Neck Exam Neck Exam: Full ROM - Respiratory Exam Respiratory Exam: Clear to Ausculation Bilateral, NORMAL BREATHING PATTERN - Cardiovascular Exam Cardiovascular Exam: REGULAR RHYTHM - GI/Abdominal Exam GI & Abdominal Exam: Soft, Normal Bowel Sounds. 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 Patient was medically optimized after being found to have hyperglycemia vs. HHS and was then transferred to the BHU at [facility] for mental health optimization. Neurology was consulted to rule out dementia versus pseudodementia. Plan: -Last dose of Keppra was today (04/02) -Continue B12 supplementation -Patient stable for discharge from neurological perspective at this time -Will need to obtain EEG as an outpatient -Further recommendations as per Dr. Jane Patient seen and case discussed with attending, Dr. Jane. Hipolito Cabrera PGY2
--- NOTE | 2018-04-02 15:33 | PN ---
DATE: 04/02/2018 ENDOCRINOLOGY FOLLOWUP NOTE LOCATION: Room 519, [facility]. SUBJECTIVE: This is a 63-year-old female with recent uncontrolled type 2 insulin-requiring diabetes, now being followed closely for metabolic management. Her glycemic levels are fluctuating but much improved at this time and the glucose values have ranged from 126-235 mg/dL. LABORATORY DATA: Her chemistry showed a BUN of 26, sodium 139, potassium 4.6, chloride 109, CO2 of 25, glucose 213 and creatinine 1.5. ASSESSMENT AND PLAN: So at this time, we will continue the same basal and bolus insulin regimen to allow for dose equilibration and keep her on the Humalog given as 12 units t.i.d. before meals as ordered. We will continue the long-acting basal insulin given as Levemir at 30 units subcutaneous at bedtime daily as given. We will obtain serial chemistries and supplement accordingly as needed. We will follow. Mireya Lopez MD
--- NOTE | 2018-04-02 17:16 | PCM.PYCHDC ---
Discharge Summary - Discharge Note Reason for Hospitalization: Patient was transferred from the medical floor for evaluation and stabilization of depressive symptoms, hopelessness, inability to function, initially patient was admitted to the medical floor after being found confused, wandering on the streets. Psychiatric History (includes Medical, Family, Personal Hx): See HPI Laboratory Data: Abnormal Lab Results 04/01/18 04/02/18 21:23 07:23 POC Glucose (mg/dL) 225 H 209 H Consultations:: List each consultation separately and include: 1. Reason for request. 2. Findings. 3. 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 Patient was medically optimized after being found to have hyperglycemia vs. HHS and was then transferred to the BHU at [facility] for mental health optimization. Neurology was consulted to rule out dementia versus pseudodementia. Plan: -Last dose of Keppra was today (04/02) -Continue B12 supplementation -Patient stable for discharge from neurological perspective at this time -Will need to obtain EEG as an outpatient -Further recommendations as per Dr. Jane Patient seen and case discussed with attending, Dr. Jane. Hipolito Cabrera PGY2" Discussed with Dr. Jane April 02, 2018, patient is neurologically stable, patient needs to have EEG as outpatient at [facility] pt needs to use [facility] to schedule appointment [phone] Summary of Hospital Course include:: 1. Description of specific treatment plan utilized for patients during their course of treatmen. 2. Summarize the time- course for resolution of acute symptoms and/or regressed behaviors. 3. Describe issues identified and worked on during hospitalization. 4. Describe medication utilized. 5. Describe medical problems identified and treated. 6. Reassessment of suicide risk Summary of Hospital Course: Shortly, patient is 63 year old female from [facility], multiple medical micheal rbidities such as PMH of [place] s/p LCX sten 2011, DM, CAD, HTN, HLD who was initially brought in by EMS on 03/22 w/ c/o of SOB; per ED documentation, patient was brought in by EMS after she was found wandering the streets, patient was found to have a blood glucose of >500, confused, did not know her date of , her address, and location. 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 Over the weekend patient was medically stabilized, patient presented to be depressed, hopeless, helpless, wanted to join her , patient required further evaluation, stabilization, medications adjustment. Please see admission note for more detailed information. 03/29/18 07:50 03/29/18 07:50 Lab Results 03/29/18 07:50: Sodium 139, Potassium 4.6, Chloride 109 H, Carbon Dioxide 25, Anion Gap 10, BUN 26 H, Creatinine 1.5 H, Est GFR ( Amer) 42, Est GFR (Non-Af Amer) 35, Random Glucose 213 H, Calcium 9.2, Total Bilirubin 0.8, AST 27, ALT 24, Alkaline Phosphatase 88, Total Protein 6.6, Albumin 3.7, Globulin 3.0, Albumin/Globulin Ratio 1.2 03/29/18 07:50: WBC 7.1, RBC 2.98 L, Hgb 9.2 L, Hct 27.9 L, MCV 93.6, MCH 30.9, MCHC 33.0, RDW 13.6, Plt Count 235, MPV 9.6, Gran % 44.5 L, Lymph % (Auto) 41.5 H, [place] % (Auto) 6.9 H, Eos % (Auto) 6.5 H, Baso % (Auto) 0.6, Gran # 3.18, Lymph # (Auto) 3.0, [place] # (Auto) 0.5, Eos # (Auto) 0.5, Baso # (Auto) 0.04 Vital Signs Pulse Resp BP 03/29/18 10:04 67 115/59 L 03/29/18 10:03 67 115/59 L 03/28/18 23:31 20 Over the course of this hospitalization patient was stabilized on the following psychotropic medications: Zoloft 100 mg for depression and anxiety Ambien 5 mg at the nighttime for insomnia Patient tolerated medications well, no side effects observed or reported, aims 0, no EPS. Over the course of this hospitalization pt was attending groups, pt also had medication management, had therapeutic milieu. Overall pt improved significantly, pt's affect became brighter, pt was less depressed, has realistic future oriented plans "I want to visit my grand daughter who is 6days old", pt also does not appear to be psychotic, or anxious, pt was socially appropriate, no behavioral issues, pts insight improved as well and soon pt deemed to be ready for discharge. At the time of the discharge patient pose no imminent danger to self or others, will be following up at Dr. Esteban office, information about follow up appointment, time and address provided to the pt, (see SW note for more detailed information). It is a patient responsibility to follow up with outpatient clinic, PMD as well as neurologist. In case patient will need to obtain results of studies pending at discharge, patient was provided with contact information of Psychiatric Inpatient unit [phone] as well as Medical Record Department [phone], as well as [facility] team [phone]. Patient denied smoking, denied using any drugs pt was provided with prescriptions for two weeks and one refill for psychotropic meds and one week for medical meds (see medication reconciliation form) Pt and her son were educated about safety plan in case of worsening of symptoms or in case of suicidal or homicidal ideation call 911 or go to the nearest ER, also was educated to take meds as prescribed and stay away from drugs, pt verbalized understanding. 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 Esteban office, information about follow up appointment, time and address provided to the pt, (see SW note for more detailed information). It is a patient responsibility to follow up with outpatient clinic, PMD as well as neurologist. In case patient will need to obtain results of studies pending at discharge, patient was provided with contact information of Psychiatric Inpatient unit [phone] as well as Medical Record Department [phone], as well as [facility] team [phone]. Patient denied smoking, denied using any drugs pt was provided with prescriptions for two weeks and one refill for psychotropic meds and one week for medical meds (see medication reconciliation form) Pt and her son were educated about safety plan in case of worsening of symptoms or in case of suicidal or homicidal ideation call 911 or go to the nearest ER, also was educated to take meds as prescribed and stay away from drugs, pt verbalized understanding. Prescriptions/Medication Reconciliation: Aspirin [Ecotrin] 81 mg PO DAILY #30 tabec Atorvastatin [Lipitor] 20 mg PO DIN #30 tab Clopidogrel [Plavix] 75 mg PO DAILY #30 tab hydroCHLOROthiazide [Hydrodiuril] 25 mg PO DAILY #30 tab Insulin Detemir [Levemir] 30 unit SC HS #1 vial Insulin Lispro [humALOG] 12 units SC AC #1 vial Lisinopril [Zestril] 10 mg PO DAILY #30 tab Metoprolol Tartrate [Lopressor] 25 mg PO BID #60 tab Montelukast [Singulair] 10 mg PO DAILY #30 tab Sertraline [Zoloft] 100 mg PO DAILY #14 tab Zolpidem [Ambien] 5 mg PO HS PRN #14 tab PRN Reason: Insomnia - Smoking Cessation Smoking Cessation Medication prescribed: No Reason for not providing: Patient denied smoking
[2018-04-02] MEDS: Insulin Detemir 100 units/ml Vial (Levemir) SC SCH (21:33)
[2018-04-03 07:35] VITALS: BP 161/79; PULSE 64; TEMP 98.4
[2018-04-03] MEDS: Pantoprazole 40 mg EC Tab PO SCH (09:33)
[2018-04-03] MEDS: Omega-3-Acid Ethyl Esters 1 GM Cap PO SCH (09:33)
[2018-04-03] MEDS: Insulin Lispro 1 UNITS/0.01 ML SC SCH (09:36)
[2018-04-03] MEDS: Insulin Lispro (humaLOG) LOW Coverage SC SCH (09:36)
--- NOTE | 2018-04-03 12:14 | PCM.PYCHPN ---
Psychiatric Progress Note - Psychiatric Progress Note Patient seen today, length of contact: 30 minutes Problems Identified/Issues Discussed: Patient continues to present as stable for discharge. It is unclear why her son failed to pick her up yesterday however she continues to feel comfortable with discharge medications and recommendations. There have been no behavioral issues and disposition is pending per f/u Medication Change: Yes (Zoloft increased) Medical Record Reviewed: Yes Mental Status Examination - Cognitive Function Orientation: Person, Place, Situation Memory: Impaired Attention: Poor (talita improvment) Concentration: Poor (some improvement) Association: Loose (some improvement) Fund of Knowledge: WNL - Mood Mood: Depressed (better), Anxious - Affect Affect: Flat - Speech Speech: Appropriate - Formal Thought Process Formal Thought Process: No Impairment (pt presented more coherent) - Suicidal Ideation Suicidal Ideation: No - Homicidal Ideation Homicidal Ideation: No Goal/Treatment Plan - Goal/Treatment Plan Need for Continued Stay: Remain at risks for inpatient hospitalization, Severe depression anxiety, Discharge may exacerbated symptoms, Severe functional impairment Progress Toward Problem(s) and Goals/Treatment Plan: * Disposition pending per f/u today Estimated Date of D/C: 04/02/18
--- NOTE | 2018-04-03 13:36 | PN ---
DATE: 04/03/2018 LOCATION: Room 519, psychiatry. SUBJECTIVE: This is a 63-year-old female with recent uncontrolled type 2 insulin-requiring diabetes, now being followed closely for metabolic management. She is undergoing close psychiatric evaluation and management for recent major depressive disorder of note. Her glucose values are fluctuating, improved, depending on the ability of her oral intake as noted. Her glucose levels have ranged from 185-209 and 292 mg/dL. Her latest chemistries showed a BUN of 26, sodium 139, potassium 4.6, chloride 109, CO2 of 25, glucose 213 and creatinine 1.5. PLAN: So at this time, we will continue the same basal and bolus insulin regimen as given with Humalog given as 12 units t.i.d. before meals and Levemir taken as 30 units at bedtime daily as given. We will titrate incrementally as indicated to optimize metabolic control. We will follow and advise accordingly. Mireya Lopez MD
== END 2018-04-03 12:43 | disposition home or self-care (01) | DRG 881 ==
LOC: PSYC 22:24
PROVIDERS: ADMIT Psychiatry & Neurology Psychiatry; ATTEND Psychiatry & Neurology Psychiatry
DX: F32.9 Major depressive disorder, single episode, unspecified (principal); F03.90 Unspecified dementia, unspecified severity, without behavioral disturbance, psychotic disturbance, mood disturbance, and anxiety; G40.909 Epilepsy, unspecified, not intractable, without status epilepticus; F41.1 Generalized anxiety disorder; E11.42 Type 2 diabetes mellitus with diabetic polyneuropathy; E11.21 Type 2 diabetes mellitus with diabetic nephropathy; E11.51 Type 2 diabetes mellitus with diabetic peripheral angiopathy without gangrene; E11.65 Type 2 diabetes mellitus with hyperglycemia; E78.5 Hyperlipidemia, unspecified; E87.5 Hyperkalemia; G47.00 Insomnia, unspecified; I10 Essential (primary) hypertension; I25.10 Atherosclerotic heart disease of native coronary artery without angina pectoris; I25.2 Old myocardial infarction; Z79.4 Long term (current) use of insulin; Z79.899 Other long term (current) drug therapy; Z91.83 Wandering in diseases classified elsewhere; Z98.61 Coronary angioplasty status